=== PATIENT | female | born 1955 | race Caucasian/White ===

== ENCOUNTER 2016-12-06 14:17 | Inpatient (IN) ==
--- NOTE | 2016-12-06 14:46 | Emergency Department Note ---
Disposition Clinical Impression: Delirium due to general medical condition, Altered mental status, Liver failure , Hepatic encephalopathy, Obesity, Thrombocytopenia, Leukopenia, COPD (chronic obstructive pulmonary disease), Diabetes, Malignancy Disposition: Admitted As Inpatient Referrals: NO,PCP [Primary Care Provider] - Forms: ED Satisfaction Letter General Adult HPI - General Chief complaint: ED Altered Mental Status Stated complaint: AMS, COPD Time Seen by Provider: 12/06/16 14:28 Source: family - History of Present Illness HPI Narrative: 61-year-old female with a history of malignancy and chronic oxygen dependency comes to the ED with concerns for altered mental status. The patient's relatives are concerned because the patient has been poorly responsive and getting worse over the last few days. They are concerned about potential hypercarbia. The patient has a known history of liver disease and has had hyperammonemia before. She currently takes lactulose. There is no history of chest pain no shortness of breath of an acute nature, she usually wears 4 L nasal cannula. No cough or coughing up blood. She has chronically swollen lower extremities which are unchanged. There is no history of fall. The patient denies abdominal pain and there is no history of vomiting or diarrhea. No back pain. No rashes or fevers or convulsions. No difficulty moving her arms or legs independently. No new medications reported or noted. Pain Scale: 0 - Related Data Home Medications Medication Instructions Recorded Confirmed Duloxetine HCl [Cymbalta] 60 mg PO QAM 07/08/15 11/27/16 Budesonide/Formoterol 160/4.5 2 puff IH BIDR 07/11/15 11/27/16 [Symbicort 160/4.5] Gabapentin [Neurontin] 300 mg PO HS 07/11/15 11/27/16 Cyanocobalamin (B-12) [Vitamin B12] 1,000 mcg IM QMONTH 03/24/16 11/27/16 Methylphenidate HCl [Concerta] 36 mg PO QAM 03/24/16 11/27/16 Prochlorperazine Maleate 10 mg PO DAILY PRN 03/24/16 11/27/16 [Compazine] Albuterol Sulfate [Proventil Hfa] 2 puff IH Q4H 10/24/16 11/27/16 Duloxetine [Cymbalta] 30 mg PO HS 10/24/16 11/27/16 Ergocalciferol (VITAMIN D2) 50,000 unit PO QWEEK 10/24/16 11/27/16 [Vitamin D2] Ferrous Sulfate [Iron] 325 mg PO TID 10/24/16 11/27/16 Furosemide [Lasix] 20 mg PO DAILY 10/24/16 11/27/16 LORazepam [Ativan] 0.5 mg PO BID 10/24/16 11/27/16 Lactulose [Enulose] 30 ml PO DAILY 10/24/16 11/27/16 Methylphenidate HCl [Concerta] 27 mg PO QPM 10/24/16 11/27/16 Pantoprazole Sodium [Protonix] 40 mg PO BID 10/24/16 11/27/16 Saline Nasal [place] [[place] Nasal 1 spray NS QID 10/24/16 11/27/16 [place]] Spironolactone [Aldactone] 50 mg PO QAM 10/24/16 11/27/16 Tramadol HCl [Ultram] 50 mg PO BID PRN 10/24/16 11/27/16 Propranolol [Inderal] 10 mg PO BID 11/14/16 11/27/16 Rifaximin [Xifaxan] 550 mg PO BID 11/14/16 11/27/16 Zinc Sulfate 220 mg PO BID 11/14/16 11/27/16 Spironolactone [Aldactone] 25 mg PO QPM 11/27/16 11/27/16 Previous Rx's Medication Instructions Recorded Multivit-Min/Iron Fum/Folic AC 1 each PO DAILY #90 tablet 10/31/16 [Clpwy-Ztefqkz-Aumqnhti Tablet] Lidocaine HCl [Lidocaine HCl 5 - 10 ml VG DAILY PRN #240 ml 11/27/16 Viscous] Allergies Allergy/AdvReac Type Severity Reaction Status Date / Time codeine Allergy Mild Hives Verified 12/06/16 14:26 montelukast [From Singulair] Allergy Mild Hives Verified 12/06/16 14:26 adhesive tape Allergy Blister Verified 12/06/16 14:26 Limitations: ROS unobtainable due to patients medical condition Past Medical History - Past Medical History Medical history: Reports: cancer, CHF, diabetes, hypertension, liver disease, other Surgical history: Reports: appendectomy, , cholecystectomy, other Psychiatric history: Reports: anxiety, depression - Social History Smoking Status: Former smoker Smokeless Tobacco Status: No Alcohol use: Reports: none Drug use: Reports: none Physical Exam - General Limitations: altered mental status General appearance: lethargic - Head Head exam: atraumatic, normocephalic, normal inspection - Eye Eye exam: Present: normal appearance, PERRL, EOMI. Absent: scleral icterus, conjunctival injection - ENT ENT exam: normal exam, normal oropharynx, mucous membranes moist - Neck Neck exam: Present: normal inspection, full ROM, trachea midline - Chest Chest inspection: Present: symmetric chest wall rise. Absent: tenderness - Respiratory Respiratory exam: Present: prolonged expiratory phase. Absent: respiratory distress, wheezes - Cardiovascular Cardiovascular exam: Present: regular rate, normal rhythm, normal heart sounds - Abdominal Exam Abdominal exam: Present: soft, Non-Tender. Absent: tenderness, distention, guarding, rebound, rigidity - Extremities Exam Extremities exam: Present: full ROM, normal capillary refill, pedal edema. Absent: tenderness, joint swelling, calf tenderness - Expanded Lower Extremity Exam Hip/Pelvis exam: Present: full ROM, tenderness Upper leg exam: Present: full ROM Knee exam: Present: full ROM Lower leg exam: Present: full ROM. Absent: Homans' sign Neurovascular/Tendon exam: Absent: motor deficit, sensory deficit, tendon deficit - Back Exam Back exam: Present: normal inspection, full ROM. Absent: tenderness, CVA tenderness (R), CVA tenderness (L), vertebral tenderness - Neurological Exam Neurological exam: Present: alert, CN II-XII intact. Absent: motor sensory deficit - Skin Skin exam: Present: warm, dry, intact, normal color. Absent: rash, cyanosis, diaphoresis, erythema, pallor, mottled Course Vital Signs Temperature 97.7 F 12/06/16 14:21 Pulse Rate 75 12/06/16 14:21 Respiratory Rate 17 12/06/16 14:21 Blood Pressure 128/73 12/06/16 14:21 O2 Sat by Pulse Oximetry 98 12/06/16 14:21 Temperature 97.7 F 12/06/16 14:21 Pulse Rate 70 12/06/16 16:50 Respiratory Rate 14 12/06/16 16:50 Blood Pressure 104/51 12/06/16 16:50 O2 Sat by Pulse Oximetry 97 12/06/16 16:50 Oxygen Delivery Oxygen Delivery Room Air Medical Decision Making - MDM Narrative Medical decision making narrative: Patient has a history of malignancy and chronic liver disease, she has been taking lactulose at home however she appears to have failed outpatient therapy and has a significantly elevated ammonia level. She was given lactulose in the emergency department and maintained on oxygen. Based on her multiple comorbidities and overt confusion, I thought it would be appropriate to admit the patient to the hospital. I discussed the case with the hospitalist on-call who has accepted the patient to their care. - Lab Data Lab results reviewed: Yes I reviewed the patient's lab results. Result diagrams: 12/06/16 14:55 12/06/16 14:55 Lab Results 12/06/16 12/06/16 12/06/16 Range/Units 14:55 14:55 14:55 WBC 2.9 L (4.3-11.1) K/mcL RBC 3.72 L (3.82-4.97) M/mcL Hgb 11.5 (11.5-15.4) g/dL Hct 35.8 (35.3-44.9) % MCV 96.2 (83.0-100.0) fL MCH 30.9 (28.0-33.3) pg MCHC 32.1 (31.6-35.5) g/dL RDW 20.3 H (11.5-14.5) % Plt Count 64 L (140-400) K/mcL MPV TNP Immature Gran % 0.4 (0-4) % Seg Neutrophils % 61.0 % Lymphocytes % 24.2 % Monocytes % 10.2 % Eosinophils % 3.5 % Basophils % 0.7 % Neutrophils # 1.8 (1.6-8.9) K/mcL Lymphocytes # 0.7 (0.6-4.6) K/mcL Monocytes # 0.3 (0.0-1.3) K/mcL Eosinophils # 0.1 (0.0-0.6) K/mcL Basophils # 0.0 (0.0-0.2) K/mcL PT 20.6 H (9.4-12.1) Seconds INR 1.9 APTT 39.1 H (26.0-36.0) Seconds ABG pH (7.32-7.45) pH Units ABG pCO2 (35-45) mmHg ABG pO2 (85-104) mmHg ABG HCO3 (21-27) mEQ/L ABG Total CO2 (20-26) mEq/L ABG O2 Saturation (95-98) % ABG Base Excess (-2.0 to 3.0) mEq/L Liter Flow L/MIN Blood Gas Modality Inspired O2 % Sodium 139 (136-145) mEq/L Potassium 3.7 (3.5-4.5) mEq/L Chloride 112 H (98-109) mEq/L Carbon Dioxide 25 (19-29) mEq/L BUN 7 (7-20) mg/dL Creatinine 0.61 (0.57-1.11) mg/dL Est GFR ( Amer) > 60 (> 60) Est GFR (Non-Af Amer) > 60 (> 60) BUN/Creatinine Ratio 11 (6-26) Glucose 146 H (70-99) mg/dL Calculated Osmolality 289 (280-300) Calcium 8.1 L (8.6-10.8) mg/dL Total Bilirubin 2.9 H (0.2-1.2) mg/dL Direct Bilirubin 1.2 H (0.0-0.5) mg/dL Indirect Bilirubin 1.7 H (0.0-1.2) mg/dL AST 49 H (5-34) Units/L ALT 35 (0-55) Units/L Alkaline Phosphatase 168 H (38-126) Units/L Ammonia (18-72) mcmol/L Troponin I (0-0.03) ng/mL B-Natriuretic Peptide (0-100) pg/mL Serum Total Protein 6.1 (6.0-8.3) g/dL Albumin 1.9 L (3.5-5.0) g/dL Globulin 4.2 H (2.4-3.5) g/dL Albumin/Globulin Ratio 0.5 L (1.1-2.2) Lipase 28 (8-78) Units/L TSH 1.589 (0.350-4.840) mcIU/mL Urine Color (Yellow) Urine Clarity (Clear) Urine pH (5.0-8.0) pH Units Ur Specific [place] (1.010-1.025) Urine Protein (Neg-Trace) mg/dL Urine Glucose (UA) (Normal) mg/dL Urine Ketones (Negative) mg/dL Urine Blood (Negative) Urine Nitrite (Negative) Urine Bilirubin (Negative) Urine Urobilinogen (Normal) mg/dL Ur Leukocyte Esterase (Negative) Urine Microscopic RBC (0-3) per hpf Urine Microscopic WBC (0-3) per hpf Ur Squamous Epith Cells (None-Few) per lpf Urine Bacteria (None-Few) per hpf Hyaline Casts (None-Few) per lpf Ur Culture Indicated? (NO) Salicylates (15-30) mg/dL Urine Opiates Screen (Npxwvd=835) ng/mL Acetaminophen (10-30) mcg/mL Ur Barbiturates Screen (Qmmefg=033) ng/mL Ur Phencyclidine Scrn (Cutoff=25) ng/mL Ur Amphetamines Screen (Xiahin=8378) ng/mL U Benzodiazepines Scrn (Gonfbm=296) ng/mL Urine Cocaine Screen (Cutoff= 300) ng/mL U Marijuana (THC) Screen (Cutoff = 50) ng/mL Ethyl Alcohol < 10 (0-10) mg/dL 12/06/16 12/06/16 12/06/16 Range/Units 14:55 14:55 14:55 WBC (4.3-11.1) K/mcL RBC (3.82-4.97) M/mcL Hgb (11.5-15.4) g/dL Hct (35.3-44.9) % MCV (83.0-100.0) fL MCH (28.0-33.3) pg MCHC (31.6-35.5) g/dL RDW (11.5-14.5) % Plt Count (140-400) K/mcL MPV Immature Gran % (0-4) % Seg Neutrophils % % Lymphocytes % % Monocytes % % Eosinophils % % Basophils % % Neutrophils # (1.6-8.9) K/mcL Lymphocytes # (0.6-4.6) K/mcL Monocytes # (0.0-1.3) K/mcL Eosinophils # (0.0-0.6) K/mcL Basophils # (0.0-0.2) K/mcL PT (9.4-12.1) Seconds INR APTT (26.0-36.0) Seconds ABG pH (7.32-7.45) pH Units ABG pCO2 (35-45) mmHg ABG pO2 (85-104) mmHg ABG HCO3 (21-27) mEQ/L ABG Total CO2 (20-26) mEq/L ABG O2 Saturation (95-98) % ABG Base Excess (-2.0 to 3.0) mEq/L Liter Flow L/MIN Blood Gas Modality Inspired O2 % Sodium (136-145) mEq/L Potassium (3.5-4.5) mEq/L Chloride (98-109) mEq/L Carbon Dioxide (19-29) mEq/L BUN (7-20) mg/dL Creatinine (0.57-1.11) mg/dL Est GFR ( Amer) (> 60) Est GFR (Non-Af Amer) (> 60) BUN/Creatinine Ratio (6-26) Glucose (70-99) mg/dL Calculated Osmolality (280-300) Calcium (8.6-10.8) mg/dL Total Bilirubin (0.2-1.2) mg/dL Direct Bilirubin (0.0-0.5) mg/dL Indirect Bilirubin (0.0-1.2) mg/dL AST (5-34) Units/L ALT (0-55) Units/L Alkaline Phosphatase (38-126) Units/L Ammonia 91 H (18-72) mcmol/L Troponin I 0.00 (0-0.03) ng/mL B-Natriuretic Peptide (0-100) pg/mL Serum Total Protein (6.0-8.3) g/dL Albumin (3.5-5.0) g/dL Globulin (2.4-3.5) g/dL Albumin/Globulin Ratio (1.1-2.2) Lipase (8-78) Units/L TSH (0.350-4.840) mcIU/mL Urine Color (Yellow) Urine Clarity (Clear) Urine pH (5.0-8.0) pH Units Ur Specific [place] (1.010-1.025) Urine Protein (Neg-Trace) mg/dL Urine Glucose (UA) (Normal) mg/dL Urine Ketones (Negative) mg/dL Urine Blood (Negative) Urine Nitrite (Negative) Urine Bilirubin (Negative) Urine Urobilinogen (Normal) mg/dL Ur Leukocyte Esterase (Negative) Urine Microscopic RBC (0-3) per hpf Urine Microscopic WBC (0-3) per hpf Ur Squamous Epith Cells (None-Few) per lpf Urine Bacteria (None-Few) per hpf Hyaline Casts (None-Few) per lpf Ur Culture Indicated? (NO) Salicylates < 5.0 L (15-30) mg/dL Urine Opiates Screen (Mcqfoh=341) ng/mL Acetaminophen < 1.0 L (10-30) mcg/mL Ur Barbiturates Screen (Afnufy=744) ng/mL Ur Phencyclidine Scrn (Cutoff=25) ng/mL Ur Amphetamines Screen (Dbiore=9810) ng/mL U Benzodiazepines Scrn (Rcfxrl=819) ng/mL Urine Cocaine Screen (Cutoff= 300) ng/mL U Marijuana (THC) Screen (Cutoff = 50) ng/mL Ethyl Alcohol (0-10) mg/dL 12/06/16 12/06/16 12/06/16 Range/Units 14:55 15:08 16:17 WBC (4.3-11.1) K/mcL RBC (3.82-4.97) M/mcL Hgb (11.5-15.4) g/dL Hct (35.3-44.9) % MCV (83.0-100.0) fL MCH (28.0-33.3) pg MCHC (31.6-35.5) g/dL RDW (11.5-14.5) % Plt Count (140-400) K/mcL MPV Immature Gran % (0-4) % Seg Neutrophils % % Lymphocytes % % Monocytes % % Eosinophils % % Basophils % % Neutrophils # (1.6-8.9) K/mcL Lymphocytes # (0.6-4.6) K/mcL Monocytes # (0.0-1.3) K/mcL Eosinophils # (0.0-0.6) K/mcL Basophils # (0.0-0.2) K/mcL PT (9.4-12.1) Seconds INR APTT (26.0-36.0) Seconds ABG pH 7.45 (7.32-7.45) pH Units ABG pCO2 35 (35-45) mmHg ABG pO2 81 L (85-104) mmHg ABG HCO3 24.3 (21-27) mEQ/L ABG Total CO2 25.4 (20-26) mEq/L ABG O2 Saturation 96 (95-98) % ABG Base Excess 0.6 (-2.0 to 3.0) mEq/L Liter Flow 3 L/MIN Blood Gas Modality [place] Inspired O2 32 % Sodium (136-145) mEq/L Potassium (3.5-4.5) mEq/L Chloride (98-109) mEq/L Carbon Dioxide (19-29) mEq/L BUN (7-20) mg/dL Creatinine (0.57-1.11) mg/dL Est GFR ( Amer) (> 60) Est GFR (Non-Af Amer) (> 60) BUN/Creatinine Ratio (6-26) Glucose (70-99) mg/dL Calculated Osmolality (280-300) Calcium (8.6-10.8) mg/dL Total Bilirubin (0.2-1.2) mg/dL Direct Bilirubin (0.0-0.5) mg/dL Indirect Bilirubin (0.0-1.2) mg/dL AST (5-34) Units/L ALT (0-55) Units/L Alkaline Phosphatase (38-126) Units/L Ammonia (18-72) mcmol/L Troponin I (0-0.03) ng/mL B-Natriuretic Peptide 271 H (0-100) pg/mL Serum Total Protein (6.0-8.3) g/dL Albumin (3.5-5.0) g/dL Globulin (2.4-3.5) g/dL Albumin/Globulin Ratio (1.1-2.2) Lipase (8-78) Units/L TSH (0.350-4.840) mcIU/mL Urine Color (Yellow) Urine Clarity (Clear) Urine pH (5.0-8.0) pH Units Ur Specific [place] (1.010-1.025) Urine Protein (Neg-Trace) mg/dL Urine Glucose (UA) (Normal) mg/dL Urine Ketones (Negative) mg/dL Urine Blood (Negative) Urine Nitrite (Negative) Urine Bilirubin (Negative) Urine Urobilinogen (Normal) mg/dL Ur Leukocyte Esterase (Negative) Urine Microscopic RBC (0-3) per hpf Urine Microscopic WBC (0-3) per hpf Ur Squamous Epith Cells (None-Few) per lpf Urine Bacteria (None-Few) per hpf Hyaline Casts (None-Few) per lpf Ur Culture Indicated? (NO) Salicylates (15-30) mg/dL Urine Opiates Screen Negative (Qveshy=798) ng/mL Acetaminophen (10-30) mcg/mL Ur Barbiturates Screen Negative (Xsvsdz=560) ng/mL Ur Phencyclidine Scrn Negative (Cutoff=25) ng/mL Ur Amphetamines Screen Positive H (Gowvsf=6701) ng/mL U Benzodiazepines Scrn Negative (Brsofn=538) ng/mL Urine Cocaine Screen Negative (Cutoff= 300) ng/mL U Marijuana (THC) Screen Negative (Cutoff = 50) ng/mL Ethyl Alcohol (0-10) mg/dL 12/06/16 Range/Units 16:20 WBC (4.3-11.1) K/mcL RBC (3.82-4.97) M/mcL Hgb (11.5-15.4) g/dL Hct (35.3-44.9) % MCV (83.0-100.0) fL MCH (28.0-33.3) pg MCHC (31.6-35.5) g/dL RDW (11.5-14.5) % Plt Count (140-400) K/mcL MPV Immature Gran % (0-4) % Seg Neutrophils % % Lymphocytes % % Monocytes % % Eosinophils % % Basophils % % Neutrophils # (1.6-8.9) K/mcL Lymphocytes # (0.6-4.6) K/mcL Monocytes # (0.0-1.3) K/mcL Eosinophils # (0.0-0.6) K/mcL Basophils # (0.0-0.2) K/mcL PT (9.4-12.1) Seconds INR APTT (26.0-36.0) Seconds ABG pH (7.32-7.45) pH Units ABG pCO2 (35-45) mmHg ABG pO2 (85-104) mmHg ABG HCO3 (21-27) mEQ/L ABG Total CO2 (20-26) mEq/L ABG O2 Saturation (95-98) % ABG Base Excess (-2.0 to 3.0) mEq/L Liter Flow L/MIN Blood Gas Modality [place]ired O2 % Sodium (136-145) mEq/L Potassium (3.5-4.5) mEq/L Chloride (98-109) mEq/L Carbon Dioxide (19-29) mEq/L BUN (7-20) mg/dL Creatinine (0.57-1.11) mg/dL Est GFR ( Amer) (> 60) Est GFR (Non-Af Amer) (> 60) BUN/Creatinine Ratio (6-26) Glucose (70-99) mg/dL Calculated Osmolality (280-300) Calcium (8.6-10.8) mg/dL Total Bilirubin (0.2-1.2) mg/dL Direct Bilirubin (0.0-0.5) mg/dL Indirect Bilirubin (0.0-1.2) mg/dL AST (5-34) Units/L ALT (0-55) Units/L Alkaline Phosphatase (38-126) Units/L Ammonia (18-72) mcmol/L Troponin I (0-0.03) ng/mL B-Natriuretic Peptide (0-100) pg/mL Serum Total Protein (6.0-8.3) g/dL Albumin (3.5-5.0) g/dL Globulin (2.4-3.5) g/dL Albumin/Globulin Ratio (1.1-2.2) Lipase (8-78) Units/L TSH (0.350-4.840) mcIU/mL Urine Color Yellow (Yellow) Urine Clarity Clear (Clear) Urine pH 7.0 (5.0-8.0) pH Units Ur Specific [place] 1.012 (1.010-1.025) Urine Protein Negative (Neg-Trace) mg/dL Urine Glucose (UA) Normal (Normal) mg/dL Urine Ketones Negative (Negative) mg/dL Urine Blood Small H (Negative) Urine Nitrite Negative (Negative) Urine Bilirubin Negative (Negative) Urine Urobilinogen Normal (Normal) mg/dL Ur Leukocyte Esterase Negative (Negative) Urine Microscopic RBC 0-3 (0-3) per hpf Urine Microscopic WBC 0-3 (0-3) per hpf Ur Squamous Epith Cells Many H (None-Few) per lpf Urine Bacteria None Seen (None-Few) per hpf Hyaline Casts None Seen (None-Few) per lpf Ur Culture Indicated? NO (NO) Salicylates (15-30) mg/dL Urine Opiates Screen (Ggzyvb=161) ng/mL Acetaminophen (10-30) mcg/mL Ur Barbiturates Screen (Idsdpd=891) ng/mL Ur Phencyclidine Scrn (Cutoff=25) ng/mL Ur Amphetamines Screen (Dlqnnl=0655) ng/mL U Benzodiazepines Scrn (Qavzrq=189) ng/mL Urine Cocaine Screen (Cutoff= 300) ng/mL U Marijuana (THC) Screen (Cutoff = 50) ng/mL Ethyl Alcohol (0-10) mg/dL - Radiology Data Radiology results reviewed: Yes I reviewed the patient's radiology results.
[2016-12-06 15:08] LABS: Basophils % 0.7 %; Eosinophils # 0.1 K/mcL (0.0-0.6); Eosinophils % 3.5 %; Hematocrit 35.8 % (35.3-44.9); Hemoglobin 11.5 g/dL (11.5-15.4); Immature Granulocytes % 0.4 % (0-4); Lymphocytes # 0.7 K/mcL (0.6-4.6); Lymphocytes % 24.2 %; Mean Corpuscular HGB Conc 32.1 g/dL (31.6-35.5); Mean Corpuscular Hemoglobin 30.9 pg (28.0-33.3); Mean Corpuscular Volume 96.2 fL (83.0-100.0); Monocytes # 0.3 K/mcL (0.0-1.3); Monocytes % 10.2 %; Red Blood Count 3.72 M/mcL (3.82-4.97); Red Cell Distribution Width 20.3 % (11.5-14.5)
[2016-12-06 15:10] LABS: Neutrophils # 1.8 K/mcL (1.6-8.9); Platelet Count 64 K/mcL (140-400)
[2016-12-06 15:17] LABS: ABG Base Excess 0.6 mEq/L (-2.0 to 3.0); ABG HCO3 24.3 mEQ/L (21-27); ABG Oxygen Saturation 96 % (95-98); ABG PCO2 35 mmHg (35-45); ABG PH 7.45 pH Units (7.32-7.45); ABG PO2 81 mmHg (85-104); ABG TCO2 25.4 mEq/L (20-26); Blood Gas FiO2 32 %; Blood Gas Liter Flow 3 L/MIN
[2016-12-06 15:17] LABS: INR 1.9; Prothrombin Time 20.6 Seconds (9.4-12.1)
[2016-12-06 15:19] LABS: Activated Partial Thrombo Time 39.1 Seconds (26.0-36.0)
[2016-12-06 15:25] LABS: Acetaminophen < 1.0 mcg/mL (10-30); Alanine Aminotransferase 35 Units/L (0-55); Albumin 1.9 g/dL (3.5-5.0); Albumin/Globulin Ratio 0.5 (1.1-2.2); Alkaline Phosphatase 168 Units/L (38-126); Aspartate Amino Transferase 49 Units/L (5-34); BUN/Creatinine Ratio 11 (6-26); Bilirubin,Direct 1.2 mg/dL (0.0-0.5); Bilirubin,Indirect 1.7 mg/dL (0.0-1.2); Bilirubin,Total 2.9 mg/dL (0.2-1.2); Blood Urea Nitrogen 7 mg/dL (7-20); Calcium 8.1 mg/dL (8.6-10.8); Carbon Dioxide 25 mEq/L (19-29); Chloride 112 mEq/L (98-109); Ethanol < 10 mg/dL (0-10); Globulin 4.2 g/dL (2.4-3.5); Glucose 146 mg/dL (70-99); Osmolality,Calculated 289 (280-300); Potassium 3.7 mEq/L (3.5-4.5); Salicylate < 5.0 mg/dL (15-30); Sodium 139 mEq/L (136-145); Total Protein 6.1 g/dL (6.0-8.3); eGFR For African Americans > 60 (> 60); eGFR For Non-African Americans > 60 (> 60)
[2016-12-06 15:47] LABS: Thyroid Stimulating Hormone 1.589 mcIU/mL (0.350-4.840)
[2016-12-06 16:03] LABS: Lipase 28 Units/L (8-78)
[2016-12-06] MEDS ORDERED: Lactulose Oral Soln 20 GM/30 ML UDC PO ONE (16:03)
[2016-12-06 16:24] LABS: Bilirubin,Urine Negative (Negative); Blood,Urine Small (Negative); Clarity,Urine Clear (Clear); Color,Urine Yellow (Yellow); Glucose,Urine (UA) Normal (Normal); Ketones,Urine Negative (Negative); Leukocyte Esterase,Urine Negative (Negative); Nitrite,Urine Negative (Negative); Protein,Urine Negative (Neg-Trace); Specific Gravity,Urine 1.012 (1.010-1.025); Urobilinogen,Urine Normal (Normal)
[2016-12-06 16:26] LABS: Bacteria,Urine None Seen per hpf (None-Few); Hyaline Casts,Urine None Seen per lpf (None-Few); RBC,Urine 0-3 per hpf (0-3); Squamous Epithelial Cell,Urine Many per lpf (None-Few); WBC,Urine 0-3 per hpf (0-3)
[2016-12-06 16:33] LABS: Amphetamine Screen,Urine Positive ng/mL (Cutoff=1000); Barbiturate Screen,Urine Negative ng/mL (Cutoff=200); Benzodiazepines Screen,Urine Negative ng/mL (Cutoff=200); Cannabinoid Screen,Urine Negative ng/mL (Cutoff = 50); Cocaine Screen,Urine Negative ng/mL (Cutoff= 300); Opiate Screen,Urine Negative ng/mL (Cutoff=300); Phencyclidine Screen,Urine Negative ng/mL (Cutoff=25)
[2016-12-06] MEDS ORDERED: Ondansetron 4 MG/2 ML VIAL IVP PRN (17:51)
[2016-12-06] MEDS ORDERED: Naloxone 0.4 MG/ML INJ IVP PRN (17:51)
[2016-12-06] MEDS ORDERED: Spironolactone 25 MG TABLET PO SCH (18:00)
[2016-12-06] MEDS ORDERED: NON-FORMULARY MEDICATION 1 EACH EACH (Cyanocobalamin (B-12) 1,000 MCG) IM SCH (18:00)
--- NOTE | 2016-12-06 18:19 | Internal Med History&Physical ---
Date of Encounter: 12/06/16 Time of Encounter: 17:40 Assessment and Plan (1) Hepatic encephalopathy Current visit: Yes Status: Acute Grade 3 hepatic encephalopathy likely secondary to reported lower GI bleed No GI bleed noted in the ER Increase lactulose to 30 g by mouth 4 times a day, patient able to tolerate by mouth intake at this time. Titrate to 3-4 soft bowel movements daily continue home dose Rifaximin closely monitor mental status, if worsens, will need to consider intubation for airway protection. Will hold all sedative medications from her home medication list at this time Had a detailed discussion with the family in regards to patient's advanced directives, at this time patient wishes to remain full code. (2) Lower GI bleed Current visit: Yes Status: Acute -H&H low but acceptable -No acute bleeding noted at this time -We will closely monitor -Follow up GI consult with Dr. Kwok (3) CHF (congestive heart failure) Current visit: Yes Status: Acute Not in acute exacerbation however x-ray findings consistent with pulmonary edema We will give Lasix 20 mg IV first dose now Continue diuretic therapy, increased dosing as tolerated by blood pressure Continue to monitor daily weights Monitor daily Is/Os Qualifiers: Congestive heart failure type: unspecified congestive heart failure type Congestive heart failure chronicity: unspecified congestive heart failure chronicity Qualified Code(s): I50.9 - Heart failure, unspecified (4) Morbid obesity Current visit: Yes Status: Chronic Qualifiers: Obesity type: unspecified obesity type Qualified Code(s): E66.01 - Morbid ( severe) obesity due to excess calories (5) COPD (chronic obstructive pulmonary disease) Current visit: Yes Status: Acute Not in acute exacerbation Continue bronchodilator support Continue O2 supplementation as needed Qualifiers: COPD type: unspecified COPD Qualified Code(s): J44.9 - Chronic obstructive pulmonary disease, unspecified (6) DVT prophylaxis Current visit: Yes Status: Acute epcd (7) Leukopenia Current visit: Yes Status: Chronic No signs of infection noted at this time Closely monitor Qualifiers: Neutropenia type: unspecified Qualified Code(s): D70.9 - Neutropenia, unspecified (8) Thrombocytopenia Current visit: Yes Status: Chronic Chronic secondary to liver cirrhosis Continue to closely monitor No Active bleeding noted at this time Internal Medicine - H&P: HPI Chief complaint: change in mental status Admitted From: Home Plans for Post Hospital Care: Home History of present illness: Ms. Horner is a 61 year old female with past medical history of CHF, hypertension , liver cirrhosis secondary to ARTEAGA, COPD on home oxygen, chronic pancytopenia, and valvular cancer in remission was brought to the emergency room by daughter for evaluation of change in mental status. Upon my examination the patient appears somnolent, but arousable. She is unable to stay alert long enough to answer any of my questions, however there is family including daughter who is her primary filtration supervisor available at bedside to provide her medical history. As per daughter, the patient started appearing more confused and somnolent starting yesterday afternoon. She states for the last few days she has noticed some bright red blood mixed with her stools. She also reports of noticing dark bowel movements, however patient is also taking iron supplementation. As per daughter, patient is compliant with all of her medications, and is currently undergoing aggressive liver treatment with her physician in [place]. She states the patient is having 2-3 bowel movements daily, and is compliant with her lactulose, but she noticed this change in mental status starting yesterday. Patient was recently admitted 3 weeks back for treatment of UTI and cellulitis. Family denies any history of fever, cough, however reports that the patient recently underwent a procedure for her liver in the last couple of weeks. Social Hx: former smoker, quit 16years ago Past Med Surg Social Fam HX - Past Medical History Medical history: cancer, CHF, diabetes, hypertension, liver disease, other Psychiatric history: anxiety, depression - Past Surgical History Surgical History: appendectomy, , cholecystectomy, other - Social History Smoking Status: Former smoker Smokeless Tobacco Status: No Alcohol use: none Drug use: none Internal Medicine - H&P: Meds Duloxetine HCl [Cymbalta] 60 mg PO QAM 07/08/15 [History] Budesonide/Formoterol 160/4.5 [Symbicort 160/4.5] 2 puff IH BID 07/11/15 [ History] Gabapentin [Neurontin] 300 mg PO HS 07/11/15 [History] Cyanocobalamin (B-12) [Vitamin B12] 1,000 mcg IM QMONTH 03/24/16 [History] Methylphenidate HCl [Concerta] 36 mg PO QAM 03/24/16 [History] Prochlorperazine Maleate [Compazine] 10 mg PO DAILY PRN 03/24/16 [History] Albuterol Sulfate [Proventil Hfa] 2 puff IH Q4H 10/24/16 [History] Duloxetine [Cymbalta] 30 mg PO HS 10/24/16 [History] Ergocalciferol (VITAMIN D2) [Vitamin D2] 50,000 unit PO TH 10/24/16 [History] Ferrous Sulfate [Iron] 325 mg PO QAM 10/24/16 [History] Furosemide [Lasix] 20 mg PO DAILY 10/24/16 [History] LORazepam [Ativan] 0.5 mg PO BID 10/24/16 [History] Lactulose [Enulose] 30 ml PO DAILY 10/24/16 [History] Methylphenidate HCl [Concerta] 27 mg PO QPM 10/24/16 [History] Pantoprazole Sodium [Protonix] 40 mg PO BID 10/24/16 [History] Saline Nasal [place] [[place] Nasal Bliss] 1 spray NS QID 10/24/16 [History] Spironolactone [Aldactone] 50 mg PO QAM 10/24/16 [History] Tramadol HCl [Ultram] 50 mg PO BID PRN 10/24/16 [History] Propranolol [Inderal] 10 mg PO BID 11/14/16 [History] Rifaximin [Xifaxan] 550 mg PO BID 11/14/16 [History] Zinc Sulfate 220 mg PO BID 11/14/16 [History] Spironolactone [Aldactone] 25 mg PO QPM 11/27/16 [History] Multivit-Min/Iron Fum/Folic AC [Yvhnb-Lvtcoyk-Kqtwfdbe Tablet] 1 tab PO DAILY [History] Allergies codeine Allergy (Mild, Verified 12/06/16 14:26) Hives montelukast [From Singulair] Allergy (Mild, Verified 12/06/16 14:26) Hives adhesive tape Allergy (Verified 12/06/16 14:26) Blister ROS unobtainable: due to mental status All Systems PM: A 10-system review of systems was performed and is negative for pertinent findings except as documented above in the HPI. - Constitutional Vitals: Temp Pulse Resp BP Pulse Ox 97.7 F 70 16 98/55 97 12/06/16 14:21 12/06/16 16:50 12/06/16 17:19 12/06/16 17:19 12/06/16 16:50 General appearance: Present: A&O X 2 (to self and daughter), morbidly obese, no acute distress (somnolent) - Head Head exam: Present: atraumatic, normocephalic - Eye Eye exam: Present: PERRL, scleral icterus - Respiratory Respiratory exam: Present: decreased breath sounds. Absent: respiratory distress, rhonchi, wheezes - Cardiovascular Cardiovascular exam: Present: RRR, +S1, +S2 - GI/Abdominal GI/Abdominal exam: Present: distended (obese), normal bowel sounds, soft, no peritoneal signs. Absent: rebound, tenderness - Extremities Exam Extremities exam: Present: pedal edema (bilateral 2+ pedal edema (chronic as per daughter)), warm, radial pulses palpable and symetrical - Neurological Exam Neurological exam: Present: alert (somnolent but arousable) Internal Med - H&P Results - Labs CBC & Chem 7: 12/06/16 14:55 12/06/16 14:55
[2016-12-06] MEDS ORDERED: Ipratropium/Albuterol Neb 3 ML IH PRN (18:37)
[2016-12-06] MEDS ORDERED: NON-FORMULARY MEDICATION 1 EACH EACH (Pantoprazole Sodium [Protonix] 40 MG) PO SCH (21:00)
[2016-12-06] MEDS: Budesonide/Formoterol 160/4.5 MDI IH SCH (21:26)
[2016-12-06] MEDS: Zinc Sulfate 220 MG CAPSULE PO SCH (21:32)
[2016-12-06] MEDS: Lactulose Oral Soln 20 GM/30 ML UDC PO SCH (21:32)
[2016-12-06] MEDS: Furosemide 20 MG/2 ML VIAL IVP SCH (21:32)
[2016-12-06] MEDS: Saline Nasal Spray 44 ML BOTTLE NS SCH (21:32)
[2016-12-07 04:35] LABS: Basophils % 0.7 %; Eosinophils % 2.9 %; Hemoglobin 11.4 g/dL (11.5-15.4); Immature Granulocytes % 0.4 % (0-4); Mean Corpuscular Hemoglobin 31.1 pg (28.0-33.3); Mean Corpuscular Volume 95.9 fL (83.0-100.0)
[2016-12-07 04:37] LABS: Eosinophils # 0.1 K/mcL (0.0-0.6); Hematocrit 35.2 % (35.3-44.9); Immature Platelets 3.4 % (1.1-6.1); Lymphocytes # 0.7 K/mcL (0.6-4.6); Lymphocytes % 23.6 %; Mean Corpuscular HGB Conc 32.4 g/dL (31.6-35.5); Monocytes # 0.3 K/mcL (0.0-1.3); Monocytes % 9.3 %; Neutrophils # 1.8 K/mcL (1.6-8.9); Red Blood Count 3.67 M/mcL (3.82-4.97); Red Cell Distribution Width 20.1 % (11.5-14.5); Segmented Neutrophils % 63.1 %
[2016-12-07 04:46] LABS: Platelet Count 52 K/mcL (140-400)
[2016-12-07 04:50] LABS: Alanine Aminotransferase 36 Units/L (0-55); Albumin/Globulin Ratio 0.5 (1.1-2.2); Alkaline Phosphatase 141 Units/L (38-126); Aspartate Amino Transferase 49 Units/L (5-34); BUN/Creatinine Ratio 10 (6-26); Bilirubin,Total 3.6 mg/dL (0.2-1.2); Blood Urea Nitrogen 6 mg/dL (7-20); Calcium 8.3 mg/dL (8.6-10.8); Carbon Dioxide 23 mEq/L (19-29); Chloride 113 mEq/L (98-109); Globulin 3.9 g/dL (2.4-3.5); Glucose 126 mg/dL (70-99); Magnesium 1.1 mg/dL (1.6-2.6); Osmolality,Calculated 291 (280-300); Phosphorous 2.9 mg/dL (2.3-4.7); Potassium 3.5 mEq/L (3.5-4.5); Sodium 141 mEq/L (136-145); Total Protein 5.9 g/dL (6.0-8.3); eGFR For African Americans > 60 (> 60); eGFR For Non-African Americans > 60 (> 60)
[2016-12-07 05:20] LABS: Anisocytosis 1+ (Not Present); Hypochromasia Present (Not Present); Ovalocytes 1+ (Not Present); Tear Drop Cells 1+ (Not Present)
[2016-12-07 05:21] LABS: Platelet Estimate Decreased (Normal); Poikilocytosis 1+ (Not Present); Polychromasia 1+ (Not Present)
[2016-12-07] MEDS: Budesonide/Formoterol 160/4.5 MDI IH SCH (08:24)
[2016-12-07] MEDS ORDERED: *HR* Phytonadione 5 MG TABLET PO SCH (09:00)
[2016-12-07] MEDS ORDERED: Spironolactone 25 MG TABLET PO SCH (09:00)
[2016-12-07] MEDS ORDERED: Multivit/Ca/Min/Fe/FA 1 TAB TABLET PO SCH (09:00)
--- NOTE | 2016-12-07 09:09 | Internal Med Progress Note ---
Date of Encounter: 12/07/16 Time of Encounter: 06:00 - Assessment and plan (1) Hepatic encephalopathy Current Visit: Yes Status: Acute Assessment and plan: miniize narcotics sedatives, check ammonia level continue rifaximin and lactulose (2) CHF (congestive heart failure) Current Visit: Yes Status: Acute Assessment and plan: Unknown EF check echo gentle diuresis , monitor lytesto prevent hepato renal syndrome Qualifiers: Congestive heart failure type: unspecified congestive heart failure type Congestive heart failure chronicity: unspecified congestive heart failure chronicity Qualified Code(s): I50.9 - Heart failure, unspecified (3) Cirrhosis Current Visit: No Status: Chronic Assessment and plan: due to ARTEAGA/ check hepatitis panel supportive care Qualifiers: Hepatic cirrhosis type: unspecified hepatic cirrhosis Ascites presence: without ascites Qualified Code(s): K74.60 - Unspecified cirrhosis of liver (4) Malignancy Current Visit: Yes Status: Chronic Assessment and plan: vulvar cancer s/o radiation apparently not a resectable tumor (5) Vulva cancer Current Visit: No Status: Chronic - Subjective Interval history: Pt states that feels better, but upon questioning she is oriented to person and place only not in time - Constitutional Vitals: Temp Pulse Resp BP Pulse Ox 98.2 F 76 16 106/64 88 L 12/07/16 06:25 12/07/16 06:25 12/07/16 08:24 12/07/16 06:25 12/07/16 08:24 General appearance: Present: A&O X 2 (to self and daughter), morbidly obese, no acute distress (somnolent) - Respiratory Respiratory exam: Present: decreased breath sounds Additional comments: scattered rales - Cardiovascular Cardiovascular exam: Present: RRR, +S1, +S2 - GI/Abdominal GI/Abdominal exam: Present: soft Additional comments: + splenomegaly - Extremities Exam Additional comments: Trace pedal edema - Neurological Exam Neurological exam: Present: alert Additional comments: ut oriented to person and place not in time Internal Medicine: Result - Labs CBC & Chem 7: 12/07/16 04:16 12/07/16 04:16 Labs: Short CBC 12/07/16 Range/Units 04:16 WBC 2.8 L (4.3-11.1) K/mcL Hgb 11.4 L (11.5-15.4) g/dL Hct 35.2 L (35.3-44.9) % Plt Count 52 L (140-400) K/mcL Neutrophils # 1.8 (1.6-8.9) K/mcL BMP 12/07/16 04:16 Sodium 141 Potassium 3.5 Chloride 113 H Carbon Dioxide 23 BUN 6 L Creatinine 0.62 Glucose 126 H Calcium 8.3 L Liver Function 12/07/16 Range/Units 04:16 Total Bilirubin 3.6 H (0.2-1.2) mg/dL AST 49 H (5-34) Units/L ALT 36 (0-55) Units/L Alkaline Phosphatase 141 H (38-126) Units/L Albumin 2.0 L (3.5-5.0) g/dL - ABG Interpretation ABG results: ABG ABG pH 7.45 pH Units (7.32-7.45) 12/06/16 15:08 ABG pCO2 35 mmHg (35-45) 12/06/16 15:08 ABG pO2 81 mmHg (85-104) L 12/06/16 15:08 ABG O2 Saturation 96 % (95-98) 12/06/16 15:08 PT/INR, D-dimer PT 20.6 Seconds (9.4-12.1) H 12/06/16 14:55 - Impressions Impressions Abdomen Ultrasound 12/06/16 18:18 IMPRESSION: Unremarkable right upper quadrant ultrasound. No evidence of ascites. Splenomegaly. D/ / Omaira Atkinson MD / Omaira Atkinson MD Interpreting Provider: Omaira Atkinson MD Consult Discharge Plan - Plan Referrals: Bianka Cassidy MD [Primary Care Provider] - (Needs appointment made)
[2016-12-07 09:23] LABS: INR 2.1; Prothrombin Time 23.1 Seconds (9.4-12.1)
[2016-12-07] MEDS: Zinc Sulfate 220 MG CAPSULE PO SCH (09:46)
[2016-12-07] MEDS: Furosemide 20 MG/2 ML VIAL IVP SCH (09:47)
[2016-12-07] MEDS: Lactulose Oral Soln 20 GM/30 ML UDC PO SCH ×3 (09:47→18:42)
[2016-12-07] MEDS: Saline Nasal Spray 44 ML BOTTLE NS SCH ×3 (09:47→15:49)
--- NOTE | 2016-12-07 11:14 | Gastroenterology Consult Note ---
<Hemanth Alarcon - Last Filed: 12/07/16 11:11> Date of Encounter: 12/07/16 Time of Encounter: 09:50 - Assessment and plan (1) Cirrhosis Current Visit: No Status: Chronic Assessment and plan: Pt is following with Wind Commissioning Technician in [place]. Rifaximin to 400 mg TID while inpatient, and 550 mg BID while outpatient. Titrate lactulose to 2-4 BM daily. Last EGD 11/21/2016 in [place]. MELD 18, Yolis-vega Class C, DF 46.7. F/u with plant health manager within 2 weeks of discharge. Qualifiers: Hepatic cirrhosis type: unspecified hepatic cirrhosis Ascites presence: without ascites Qualified Code(s): K74.60 - Unspecified cirrhosis of liver (2) Hepatic encephalopathy Current Visit: Yes Status: Acute Assessment and plan: Secondary to cirrhosis. Plan as above. (3) Liver failure Current Visit: Yes Status: Acute Qualifiers: Liver failure chronicity: chronic Hepatic coma status: without hepatic coma Qualified Code(s): K72.10 - Chronic hepatic failure without coma (4) Lower GI bleed Current Visit: Yes Status: Acute Assessment and plan: hgb 11/5 on admission and this AM 11.4. Rectal exam negative for blood per Dr. Kwok. Will hold on colonoscopy at this time. F/u with plant health manager within 2 weeks after discharge. - Time Spent With Patient Total time spent is greater than 50% in coordination of care (as documented) at patient's floor/unit and/or counseling patient: GI History of Present Illness - Data of Consult Patient: new to practice Consult date: 12/07/16 Requesting Physician: Hortensia Kennedy - Consult Narrative Reason for consult: Lower GI bleed History of present illness: Ms. Horner is a 61 year old female with PMHx of CHF, HTN, DM, cirrhosis secondary to ARTEAGA, COPD who presented to the ED with altered mental status. The patient started appearing more confused and somnolent starting the day prior to admission. She states for the last few days she has noticed some bright red blood mixed with her stools. She also reports of noticing dark bowel movements, however patient is also taking iron supplementation. Hgb 11.5 on admission and 11.4 this AM. Patient is compliant with all of her medications, and is currently undergoing aggressive liver treatment with her physician in [place]. She states the patient is having 2-3 bowel movements daily, and is compliant with her lactulose. Procedures: Colonoscopy 12/22/2012 Dr. Cooney, diverticulosis, tubular adenoma, hyperplastic polyp. NSAIDs: None Anticoagulation: None Past Med Surg Social Fam HX - Past Medical History Medical history: cancer, CHF, diabetes, hypertension, liver disease, other Psychiatric history: anxiety, depression - Past Surgical History Surgical History: appendectomy, , cholecystectomy, other - Social History Smoking Status: Former smoker Smokeless Tobacco Status: No Alcohol use: none Drug use: none - Gastrointestinal Gastrointestinal: Present: as per HPI - Constitutional Constitutional: as per HPI - EENT Eyes: as per HPI Ears: Present: as per HPI Nose, mouth and throat: Present: as per HPI - Cardiovascular Cardiovascular ROS: Present: as per HPI - Respiratory Respiratory IM: Present: as per HPI - Genitourinary Genitourinary: Absent: change in color, Urinary frequency - Neurological ROS Neurological GI: Present: as per HPI - Hematologic/Lymphatic Hematologic/Lymphatic pediatric: Present: as per HPI - Musculoskeletal Musculoskeletal ROS GI: Present: as per HPI - Integumentary Integumentary GI: Present: as per HPI - Psychiatric ROS Psychiatric GI: Present: as per HPI - Endocrine Endocrine IM: Present: as per HPI - Constitutional Vitals: Temp Pulse Resp BP Pulse Ox 98.2 F 76 16 106/64 88 L 12/07/16 06:25 12/07/16 06:25 12/07/16 08:24 12/07/16 06:25 12/07/16 08:24 General appearance: Present: cooperative, A&O X 3, no acute distress, answers questions appropriately - Head Head exam: Present: atraumatic, normocephalic - Eye Eye exam: Present: normal appearance, sclera anicteric - ENT ENT exam: Present: mucous membranes moist - Neck Neck exam general surgery: Present: normal inspection, trachea midline - Respiratory Respiratory exam: Present: decreased breath sounds - Cardiovascular Cardiovascular exam: Present: RRR, +S1, +S2 - GI/Abdominal GI/Abdominal exam: Present: soft, no peritoneal signs. Absent: distended, firm , guarding, tenderness - Rectal Rectal exam: Present: deferred - Extremities Exam Extremities exam: Present: warm - Neurological Exam Neurological exam: Present: no focal deficits - Psychiatric Psychiatric exam: Present: normal affect, normal mood - Skin Skin exam: Present: dry, intact, normal color, warm Results - Labs CBC & Chem 7: 12/07/16 04:16 12/07/16 04:16 Labs: Last Result Calcium 8.3 mg/dL (8.6-10.8) L 12/07/16 04:16 Troponin I 0.00 ng/mL (0-0.03) 12/06/16 14:55 Salicylates < 5.0 mg/dL (15-30) L 12/06/16 14:55 Urine Opiates Screen Negative ng/mL (Jmprnw=[id number]) 12/06/16 16:17 Entire Visit Hgb 11.4 g/dL (11.5-15.4) L 12/07/16 04:16 Hct 35.2 % (35.3-44.9) L 12/07/16 04:16 PT 23.1 Seconds (9.4-12.1) H 12/07/16 08:56 Total Bilirubin 3.6 mg/dL (0.2-1.2) H 12/07/16 04:16 AST 49 Units/L (5-34) H 12/07/16 04:16 ALT 36 Units/L (0-55) 12/07/16 04:16 Ammonia 28 mcmol/L (18-72) 12/07/16 09:06 Lipase 28 Units/L (8-78) 12/06/16 14:55 Acetaminophen < 1.0 mcg/mL (10-30) L 12/06/16 14:55 - ABG ABG results: ABG ABG pH 7.45 pH Units (7.32-7.45) 12/06/16 15:08 ABG pCO2 35 mmHg (35-45) 12/06/16 15:08 ABG pO2 81 mmHg (85-104) L 12/06/16 15:08 ABG O2 Saturation 96 % (95-98) 12/06/16 15:08 PT/INR, D-dimer PT 23.1 Seconds (9.4-12.1) H 12/07/16 08:56 - Impressions Impressions Abdomen Ultrasound 12/06/16 18:18 IMPRESSION: Unremarkable right upper quadrant ultrasound. No evidence of ascites. Splenomegaly. D/ / Omaira Atkinson MD / Omaira Atkinson MD Interpreting Provider: Omaira Atkinson MD Consult Discharge Plan - Plan Referrals: Bianka Cassidy MD [Primary Care Provider] - 12/17/16 11:00 am (Pt will follow up with Dr. Cassidy for hospital admission ) <Jesus Kwok - Last Filed: 12/07/16 12:08> Date of Encounter: 12/07/16 - Time Spent With Patient Total time spent is greater than 50% in coordination of care (as documented) at patient's floor/unit and/or counseling patient: GI History of Present Illness - Data of Consult Requesting Physician: Hortensia Kennedy - Consult Narrative History of present illness: Ms. Horner is a 61 year old female - Constitutional Vitals: Temp Pulse Resp BP Pulse Ox 97.6 F 70 18 137/75 100 12/07/16 11:32 12/07/16 11:32 12/07/16 11:32 12/07/16 11:32 12/07/16 11:32 Results - Labs CBC & Chem 7: 12/07/16 04:16 12/07/16 04:16 Labs: Last Result Calcium 8.3 mg/dL (8.6-10.8) L 12/07/16 04:16 Troponin I 0.00 ng/mL (0-0.03) 12/06/16 14:55 Salicylates < 5.0 mg/dL (15-30) L 12/06/16 14:55 Urine Opiates Screen Negative ng/mL (Ymdeil=842) 12/06/16 16:17 Entire Visit Hgb 11.4 g/dL (11.5-15.4) L 12/07/16 04:16 Hct 35.2 % (35.3-44.9) L 12/07/16 04:16 PT 23.1 Seconds (9.4-12.1) H 12/07/16 08:56 Total Bilirubin 3.6 mg/dL (0.2-1.2) H 12/07/16 04:16 AST 49 Units/L (5-34) H 12/07/16 04:16 ALT 36 Units/L (0-55) 12/07/16 04:16 Ammonia 28 mcmol/L (18-72) 12/07/16 09:06 Lipase 28 Units/L (8-78) 12/06/16 14:55 Acetaminophen < 1.0 mcg/mL (10-30) L 12/06/16 14:55 - ABG ABG results: ABG ABG pH 7.45 pH Units (7.32-7.45) 12/06/16 15:08 ABG pCO2 35 mmHg (35-45) 12/06/16 15:08 ABG pO2 81 mmHg (85-104) L 12/06/16 15:08 ABG O2 Saturation 96 % (95-98) 12/06/16 15:08 PT/INR, D-dimer PT 23.1 Seconds (9.4-12.1) H 12/07/16 08:56 - Impressions Impressions Abdomen Ultrasound 12/06/16 18:18 IMPRESSION: Unremarkable right upper quadrant ultrasound. No evidence of ascites. Splenomegaly. D/ / Omaira Atkinson MD / Omaira Atkinson MD Interpreting Provider: Omaira Atkinson MD - Attending Attestation I examined this patient and my medical decision-making was reviewed with the FLIGHT ENGINEER/PA/Advanced Practice Nurse/Resident Physician. I agree with the documented findings, disposition and treatment plan as described except to the extent set forth below. Patient with cirrhosis now admitted with encephalopathy being seen by a plant health manager in [place]. No more rectal bleeding and hemoglobin is stable. Treatment for encephalopathy for now. Follow up with the plant health manager in [place] after discharge no endoscopy indicated." EGD done in November of last year
--- NOTE | 2016-12-07 13:37 | Discharge Summary ---
Date of Encounter: 12/07/16 Time of Encounter: 11:00 - Discharge Diagnosis (1) Hepatic encephalopathy Priority: Primary Status: Acute (2) CHF (congestive heart failure) Priority: Primary Status: Acute Qualifiers: Congestive heart failure type: unspecified congestive heart failure type Congestive heart failure chronicity: unspecified congestive heart failure chronicity Qualified Code(s): I50.9 - Heart failure, unspecified (3) Cirrhosis Priority: Secondary Status: Chronic Qualifiers: Hepatic cirrhosis type: unspecified hepatic cirrhosis Ascites presence: without ascites Qualified Code(s): K74.60 - Unspecified cirrhosis of liver (4) Vulva cancer Priority: Secondary Status: Chronic - Discharge Medications Prescriptions: Lactulose 30 gm PO QID #90 udc Phytonadione [Mephyton] 2.5 mg PO DAILY #20 tablet Rifaximin [Xifaxan] 400 mg PO TID #60 tablet Home Medications: Duloxetine HCl [Cymbalta] 60 mg PO QAM 07/08/15 [History] Budesonide/Formoterol 160/4.5 [Symbicort 160/4.5] 2 puff IH BID 07/11/15 [ History] Gabapentin [Neurontin] 300 mg PO HS 07/11/15 [History] Cyanocobalamin (B-12) [Vitamin B12] 1,000 mcg IM QMONTH 03/24/16 [History] Methylphenidate HCl [Concerta] 36 mg PO QAM 03/24/16 [History] Prochlorperazine Maleate [Compazine] 10 mg PO DAILY PRN 03/24/16 [History] Albuterol Sulfate [Proventil Hfa] 2 puff IH Q4H 10/24/16 [History] Duloxetine [Cymbalta] 30 mg PO HS 10/24/16 [History] Ergocalciferol (VITAMIN D2) [Vitamin D2] 50,000 unit PO TH 10/24/16 [History] Ferrous Sulfate [Iron] 325 mg PO QAM 10/24/16 [History] Furosemide [Lasix] 20 mg PO DAILY 10/24/16 [History] Lactulose [Enulose] 30 ml PO DAILY 10/24/16 [History] Methylphenidate HCl [Concerta] 27 mg PO QPM 10/24/16 [History] Pantoprazole Sodium [Protonix] 40 mg PO BID 10/24/16 [History] Saline Nasal [place] [[place] Nasal [place]] 1 spray NS QID 10/24/16 [History] Propranolol [Inderal] 10 mg PO BID 11/14/16 [History] Zinc Sulfate 220 mg PO BID 11/14/16 [History] Spironolactone [Aldactone] 25 mg PO QPM 11/27/16 [History] Multivit-Min/Iron Fum/Folic AC [Eirav-Ipkfmsc-Ozfhnpej Tablet] 1 tab PO DAILY [History] Lactulose 30 gm PO QID #90 udc 12/07/16 [Rx] Phytonadione [Mephyton] 2.5 mg PO DAILY #20 tablet 12/07/16 [Rx] Rifaximin [Xifaxan] 400 mg PO TID #60 tablet 12/07/16 [Rx] Allergies/Adverse Reactions: Allergies codeine Allergy (Mild, Verified 12/06/16 14:26) Hives montelukast [From Singulair] Allergy (Mild, Verified 12/06/16 14:26) Hives adhesive tape Allergy (Verified 12/06/16 14:26) Blister Procedures/tests Complete & Pending: Procedures Performed prior 72 hours Category Date Time Status US abdomen limited [US] Stat Exams 12/06/16 18:18 Completed EV echocardiogram Routine Y 12/07/16 09:04 Ordered Date of admission: 12/06/16 18:05 Primary care physician: Bianka Cassidy, Consults: 12/06/16 18:08 Consult to Gastroenterology [CONS] Routine Consulting Provider: Gastroenterology Haley Reason for Consult: lower GI bleed Call Completed: Yes 12/07/16 09:44 Consult to Oral Surgery Technician [CONS] Routine Reason for SW Consult: discharge planning Discharging clinician: Kiran Gan Anticipated date of discharge: 12/07/16 - Patient Status Disposition: Home, Self-Care Condition: Good Overall status at discharge: patient is progressing back to baseline - Discharge Instructions Follow Up With: Bianka Cassidy MD [Primary Care Provider] - 12/17/16 11:00 am (Pt will follow up with Dr. Cassidy for hospital admission ) - Diet and Activity Activity: increase activity as tolerated Diet: low fat, low cholesterol Hospital course: Ms. Horner is a 61 year old female with PMH significant for Liver Cirrhosis , presented with hepatic encephalopathy ammonia evel was 91 pt received extra dose of lactulose and rifaximin, drug screen was also positive or amphetamine , pt was instructed to avoid illegal substances, she is schedule to see her Gi docto in [place] in one week - Time Spent with Patient Total time spent providing and/or coordinating discharge services: Greater than 30 minutes - Constitutional Vitals: Temp Pulse Resp BP Pulse Ox 97.6 F 70 18 137/75 100 12/07/16 11:32 12/07/16 11:32 12/07/16 11:32 12/07/16 11:32 12/07/16 11:32 General appearance: Present: A&O X 2 (to self and daughter), A&O X 3, morbidly obese, no acute distress (somnolent) - Respiratory Respiratory exam: Present: decreased breath sounds - Cardiovascular Cardiovascular exam: Present: RRR, +S1, +S2 - GI/Abdominal GI/Abdominal exam: Present: normal bowel sounds, soft - Extremities Exam Extremities exam: Present: warm, radial pulses palpable and symetrical - VTE Documentation of Mechanical Device: Intermittent pneumatic compression device
[2016-12-07 15:48] LABS: Hepatitis A Antibody IgM Nonreactive (Nonreactive); Hepatitis B Core IgM Nonreactive (Nonreactive); Hepatitis B Surface Antigen Nonreactive (Nonreactive); Hepatitis C Virus Antibody Nonreactive (Nonreactive)
[2016-12-07 15:55] VITALS: BP 124/77
--- NOTE | 2016-12-07 16:24 | Physician Discharge Referral ---
Home Health/Hosp Referral Info Transfer to: Home Health - Diagnosis (1) Hepatic encephalopathy Priority: Primary Status: Acute (2) CHF (congestive heart failure) Priority: Secondary Status: Acute (3) Cirrhosis Status: Chronic (4) Vulva cancer Status: Chronic - Respiratory Orders Oxygen / L per min (2 litters) Smoking Cessation: Smoking cessation has been advised. For more information, call the [place] Tobacco Quit Line at 8-245-SPXS-NOW. - Diet/Nutrition Diet/Nutrition Orders: Cardiac - Activity Activity Orders: Up ad madisyn - Services Needed Following services are medically necessary services: Physical Therapy, Occupational Therapy - Transfer Medications Prescriptions: Lactulose 30 gm PO QID #90 udc Phytonadione [Mephyton] 2.5 mg PO DAILY #20 tablet Rifaximin [Xifaxan] 400 mg PO TID #60 tablet Home Medications: Duloxetine HCl [Cymbalta] 60 mg PO QAM 07/08/15 [History] Budesonide/Formoterol 160/4.5 [Symbicort 160/4.5] 2 puff IH BID 07/11/15 [ History] Gabapentin [Neurontin] 300 mg PO HS 07/11/15 [History] Cyanocobalamin (B-12) [Vitamin B12] 1,000 mcg IM QMONTH 03/24/16 [History] Methylphenidate HCl [Concerta] 36 mg PO QAM 03/24/16 [History] Prochlorperazine Maleate [Compazine] 10 mg PO DAILY PRN 03/24/16 [History] Albuterol Sulfate [Proventil Hfa] 2 puff IH Q4H 10/24/16 [History] Duloxetine [Cymbalta] 30 mg PO HS 10/24/16 [History] Ergocalciferol (VITAMIN D2) [Vitamin D2] 50,000 unit PO TH 10/24/16 [History] Ferrous Sulfate [Iron] 325 mg PO QAM 10/24/16 [History] Furosemide [Lasix] 20 mg PO DAILY 10/24/16 [History] Lactulose [Enulose] 30 ml PO DAILY 10/24/16 [History] Methylphenidate HCl [Concerta] 27 mg PO QPM 10/24/16 [History] Pantoprazole Sodium [Protonix] 40 mg PO BID 10/24/16 [History] Saline Nasal [place] [[place] Nasal [place]] 1 spray NS QID 10/24/16 [History] Propranolol [Inderal] 10 mg PO BID 11/14/16 [History] Zinc Sulfate 220 mg PO BID 11/14/16 [History] Spironolactone [Aldactone] 25 mg PO QPM 11/27/16 [History] Multivit-Min/Iron Fum/Folic AC [Dking-Bchxnnw-Xrjrstcl Tablet] 1 tab PO DAILY [History] Lactulose 30 gm PO QID #90 udc 12/07/16 [Rx] Phytonadione [Mephyton] 2.5 mg PO DAILY #20 tablet 12/07/16 [Rx] Rifaximin [Xifaxan] 400 mg PO TID #60 tablet 12/07/16 [Rx] Allergies/Adverse Reactions: Allergies codeine Allergy (Mild, Verified 12/06/16 14:26) Hives montelukast [From Singulair] Allergy (Mild, Verified 12/06/16 14:26) Hives adhesive tape Allergy (Verified 12/06/16 14:26) Blister Certification: Further, I certify that my clinical findings support that this patient is homebound (i.e. absences from home require considerable and taxing effort and are for medical reasons or judaism services or infrequently or short duration when for other reasons) because: Homebound Reason: Patient requires assistance of a person or device to safely leave home, Leaving home requires considerable and taxing effort due to condition Attestation: My signature below is to certify that this patient is under my care and that I, or nurse practitioner, or a physician's title i instructional assistant working with me, has a face-to -face encounter with this patient.
--- NOTE | 2016-12-07 16:34 | Electrocardiograph Report ---
[facility] Test Date: 2016-12-06 Pat Name: Michelle Evens Department: [id number] Room: 2A22 Gender: F History Card Clerk: PAPITO : 1955 Requested By: Ladarius Sheffield Order Number: [id number] Reading MD: Rex Love DO Measurements Intervals [place] Rate: 71 P: 45 [place]: 136 QRS: 44 QRSD: 106 T: 33 QT: 429 QTc: 452 Interpretive Statements Sinus rhythm Electronically Signed On 12-07-16 16:33:20 EST by Rex Love DO
[2016-12-07] MEDS ORDERED: SODIUM CHLORIDE/NAHCO3/KCL/PEG 4,000 ML SOLN.RECON PO ONE (17:00)
== END 2016-12-07 18:55 | disposition home or self-care (01) ==
LOC: 3BNU 14:17 → EMEROO 14:17 → 2ANU 17:58
PROVIDERS: ADMIT Internal Medicine; ATTEND Nurse Practitioner Family

== ENCOUNTER 2017-07-02 16:06 | Inpatient (IN) ==
[2017-07-02] MEDS ORDERED: Levofloxacin 750 MG/150 ML 750 MG/150 ML BAG IVPB ONE (16:39)
[2017-07-02] MEDS ORDERED: Piperacillin/Tazobactam 3.375 GM in D5% in Water (Mini-Bag+) 100 ML IVPB ONE (16:39)
[2017-07-02] MEDS ORDERED: Vancomycin 1,750 MG in D5% in Water 500 ML IVPB ONE (16:51)
[2017-07-02] MEDS: 0.9 % Sodium Chloride 1,000 ML IVC SCH (17:26)
[2017-07-02 17:30] LABS: Hemoglobin 11.9 g/dL (11.5-15.4)
[2017-07-02 17:31] LABS: Clarity,Urine Turbid (Clear); Color,Urine Brown (Yellow); Glucose,Urine (UA) Normal (Normal)
[2017-07-02 17:32] LABS: Basophils % 0.2 %; Eosinophils % 0.2 %; Hematocrit 35.6 % (35.3-44.9); Immature Granulocytes % 1.8 % (0-4); Immature Platelets 3.7 % (1.1-6.1); Lymphocytes # 0.4 K/mcL (0.6-4.6); Lymphocytes % 1.7 %; Mean Corpuscular HGB Conc 33.4 g/dL (31.6-35.5); Mean Corpuscular Hemoglobin 32.3 pg (28.0-33.3); Mean Corpuscular Volume 96.7 fL (83.0-100.0); Mean Platelet Volume 10.7 fL (9.4-12.4); Monocytes # 0.6 K/mcL (0.0-1.3); Monocytes % 2.5 %; Neutrophils # 20.5 K/mcL (1.6-8.9); Red Blood Count 3.68 M/mcL (3.82-4.97); Red Cell Distribution Width 17.7 % (11.5-14.5); Segmented Neutrophils % 93.6 %
[2017-07-02 17:32] LABS: Bilirubin,Urine Moderate (Negative); Blood,Urine Large (Negative); Ketones,Urine Trace mg/dL (Negative); Specific Gravity,Urine 1.025 (1.010-1.025)
[2017-07-02 17:34] LABS: Protein,Urine 30 mg/dL (Neg-Trace); Urobilinogen,Urine Normal (Normal)
[2017-07-02 17:34] LABS: Platelet Count 65 K/mcL (140-400)
[2017-07-02 17:35] LABS: Leukocyte Esterase,Urine Large (Negative); Nitrite,Urine Positive (Negative)
[2017-07-02 17:36] LABS: Platelet Estimate Decreased (Normal)
[2017-07-02 17:41] LABS: INR 2.6; Prothrombin Time 28.6 Seconds (9.4-12.1)
[2017-07-02 17:44] LABS: Activated Partial Thrombo Time 68.9 Seconds (26.0-36.0)
[2017-07-02 17:44] LABS: Squamous Epithelial Cell,Urine Many per lpf (None-Few)
[2017-07-02 17:46] LABS: RBC,Urine 0-3 per hpf (0-3)
[2017-07-02 17:46] LABS: Albumin 1.6 g/dL (3.5-5.0); Albumin/Globulin Ratio 0.3 (1.1-2.2); Bilirubin,Direct 2.7 mg/dL (0.0-0.5); Bilirubin,Indirect 2.4 mg/dL (0.0-1.2); Bilirubin,Total 5.1 mg/dL (0.2-1.2); Calcium 8.7 mg/dL (8.6-10.8); Globulin 4.7 g/dL (2.4-3.5); Magnesium 1.1 mg/dL (1.6-2.6); Potassium 4.4 mEq/L (3.5-4.5); Total Protein 6.3 g/dL (6.0-8.3)
[2017-07-02 17:47] LABS: WBC,Urine TNTC per hpf (0-3); Yeast,Urine Many per hpf (None Seen)
[2017-07-02] MEDS ORDERED: Magnesium Sulfate 1 GM in D5% in Water 100 ML IVPB ONE (18:11)
[2017-07-02] MEDS ORDERED: *HR* Dextrose 50 % in Water (Syg) 50 ML SYRINGE IVP ONE (18:16)
[2017-07-02] MEDS ORDERED: *HR* Dextrose 50 % in Water (Syg) 50 ML SYRINGE ONE (18:16)
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
[2017-07-02] MEDS ORDERED: Naloxone 0.4 MG/ML INJ IVP PRN (20:11)
[2017-07-02] MEDS ORDERED: Ondansetron 4 MG/2 ML VIAL IVP PRN (20:11)
[2017-07-02] MEDS ORDERED: D5% in Water 1,000 ML IVC PRN (20:31)
[2017-07-02] MEDS ORDERED: *HR* Dextrose 50 % in Water (Syg) 50 ML SYRINGE IVP PRN (20:31)
[2017-07-02] MEDS ORDERED: Dextrose Gel 15 GM PO PRN ×2 (20:31)
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
[2017-07-02] MEDS: Norepinephrine 4 MG in D5% in Water 250 ML IVC SCH (20:40)
[2017-07-02] MEDS ORDERED: Potassium Chloride 40 MEQ/200 ML BAG IVPB PRN (20:48)
[2017-07-02] MEDS ORDERED: Calcium Gluconate 1,000 MG in D5% in Water 100 ML IVPB PRN (20:48)
[2017-07-02] MEDS: (Rifaximin [Xifaxan] 550 MG) PO SCH (21:59)
[2017-07-02] MEDS: Lactulose Oral Soln 20 GM/30 ML UDC PO SCH (21:59)
[2017-07-02] MEDS: 0.9 % Sodium Chloride 1,000 ML IVC ONE (22:08)
[2017-07-02] MEDS: Albumin 25% 25gram/100mL 25 GM/100 ML IV.SOLN IVC SCH ×2 (22:09→23:58)
[2017-07-02] MEDS: Budesonide/Formoterol 160/4.5 MDI IH SCH (22:26)
[2017-07-02 22:31] LABS: ABG Base Excess -13.5 mEq/L (-2.0 to 3.0); ABG HCO3 9.6 mEQ/L (21-27); ABG Oxygen Saturation 94 % (95-98); ABG PH 7.36 pH Units (7.32-7.45); ABG PO2 74 mmHg (85-104); ABG TCO2 10.1 mEq/L (20-26)
[2017-07-02 22:32] LABS: Blood Gas FiO2 32 %
[2017-07-02 22:36] LABS: ABG PCO2 17 mmHg (35-45)
[2017-07-02] MEDS ORDERED: Sodium Bicarbonate 150 MEQ in D5% in Water 1,000 ML IVC SCH (23:45)
[2017-07-02] MEDS: Piperacillin/Tazobactam 3.375 GM in D5% in Water (Mini-Bag+) 100 ML IVPB SCH (23:57)
[2017-07-03] MEDS ORDERED: 0.9 % Sodium Chloride 1,000 ML ONE (00:20)
[2017-07-03] MEDS: 0.9 % Sodium Chloride 1,000 ML IVC SCH (00:22)
[2017-07-03] MEDS: Insulin LISPRO 300 UNITS/3 ML VIAL SQ SCH ×5 (00:23→23:27)
[2017-07-03 01:34] LABS: Calcium 8.2 mg/dL (8.6-10.8); Magnesium 1.3 mg/dL (1.6-2.6); Phosphorous 3.4 mg/dL (2.3-4.7); Potassium 4.7 mEq/L (3.5-4.5)
[2017-07-03] MEDS: Albumin 25% 25gram/100mL 25 GM/100 ML IV.SOLN IVC SCH ×4 (01:56→11:08)
[2017-07-03] MEDS: 0.9 % Sodium Chloride 1,000 ML IVC ONE (03:09)
[2017-07-03] MEDS: Magnesium Sulfate 2 GM in D5% in Water 100 ML IVPB PRN (04:05)
[2017-07-03] MEDS ORDERED: *HR* Heparin 5,000 UNIT/ML VIAL SQ SCH (06:00)
[2017-07-03 08:01] LABS: Acinetobacter baumannii by PCR Not Detected (Not Detect); Candida albicans by PCR Not Detected (Not Detect); Candida glabrata by PCR Not Detected (Not Detect); Candida krusei by PCR Not Detected (Not Detect); Candida parapsilosis by PCR Not Detected (Not Detect); Candida tropicalis by PCR Not Detected (Not Detect); Enterococcus by PCR Not Detected (Not Detect); Escherichia coli by PCR Not Detected (Not Detect); Klebsiella oxytoca by PCR Not Detected (Not Detect); Klebsiella pneumoniae by PCR Not Detected (Not Detect); Pseudomonas aeruginosa by PCR Not Detected (Not Detect); Serratia marcescens by PCR Not Detected (Not Detect); Staphylococcus aureus by PCR Not Detected (Not Detect); Streptococcus agalactiae(B)PCR Not Detected (Not Detect); Streptococcus by PCR Not Detected (Not Detect); Streptococcus pneumoniae PCR Not Detected (Not Detect); Streptococcus pyogenes (A) PCR Not Detected (Not Detect); blaKPC Carbapenem-Resist Gene Not Detected (Not Detect); mecA Methicillin-Resist Gene Not Detected (Not Detect); vanA/B Vancomycin-Resist Genes Not Detected (Not Detect)
[2017-07-03] MEDS: Budesonide/Formoterol 160/4.5 MDI IH SCH ×2 (08:09→19:56)
[2017-07-03 08:24] LABS: ABG Base Excess -5.1 mEq/L (-2.0 to 3.0); ABG HCO3 17.8 mEQ/L (21-27); ABG Oxygen Saturation 93 % (95-98); ABG PCO2 25 mmHg (35-45); ABG PH 7.46 pH Units (7.32-7.45); ABG PO2 63 mmHg (85-104); ABG TCO2 18.6 mEq/L (20-26)
[2017-07-03 08:25] LABS: Blood Gas FiO2 32 %
[2017-07-03 08:30] LABS: Calcium 8.5 mg/dL (8.6-10.8); Magnesium 1.7 mg/dL (1.6-2.6); Phosphorous 2.8 mg/dL (2.3-4.7); Potassium 4.1 mEq/L (3.5-4.5)
[2017-07-03] MEDS ORDERED: *HR* HYDROmorphone (PF) 1 MG/ML SYRINGE IVP ONE (08:38)
[2017-07-03] MEDS: Piperacillin/Tazobactam 3.375 GM in D5% in Water (Mini-Bag+) 100 ML IVPB SCH ×3 (09:11→23:31)
[2017-07-03] MEDS: Pantoprazole 40 MG VIAL IVPB SCH (09:13)
[2017-07-03] MEDS: (Rifaximin [Xifaxan] 550 MG) PO SCH (09:13)
[2017-07-03] MEDS: Lactulose Oral Soln 20 GM/30 ML UDC PO SCH ×2 (09:13→19:45)
[2017-07-03 09:18] LABS: Basophils % 0.1 %; Eosinophils % 0.4 %; Hematocrit 24.8 % (35.3-44.9); Hemoglobin 8.4 g/dL (11.5-15.4); Immature Granulocytes % 0.8 % (0-4); Immature Platelets 3.2 % (1.1-6.1); Lymphocytes # 0.4 K/mcL (0.6-4.6); Lymphocytes % 3.4 %; Mean Corpuscular HGB Conc 33.9 g/dL (31.6-35.5); Mean Corpuscular Hemoglobin 32.7 pg (28.0-33.3); Mean Corpuscular Volume 96.5 fL (83.0-100.0); Mean Platelet Volume 10.2 fL (9.4-12.4); Monocytes # 0.7 K/mcL (0.0-1.3); Monocytes % 6.8 %; Neutrophils # 9.2 K/mcL (1.6-8.9); Red Blood Count 2.57 M/mcL (3.82-4.97); Red Cell Distribution Width 17.2 % (11.5-14.5); Segmented Neutrophils % 88.5 %
[2017-07-03 09:23] LABS: Platelet Count 35 K/mcL (140-400)
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
[2017-07-03 09:52] LABS: Burr Cells 2+ (Not Present); Toxic Granulation Present (Not Present)
--- NOTE | 2017-07-03 10:30 | OB/GYN Consult Note ---
Date of Encounter: 07/03/17 Time of Encounter: 09:45 Assessment and Plan (1) Vulvar cancer, carcinoma Current Visit: Yes Status: Chronic Exam today was deferred to patient discomfort. The patient's history of vulvar cancer is non-contributory to her current hospitalization. [facility] will sign off at this time. Please feel free to contact us with further questions. History of Present Illness Consult date: 07/03/17 Requesting physician: Finn Jamison Reason for consult: other (vulvar cancer) Chief complaint: Septic Shock History of present illness: The [facility] service was consulted for Ms Michelle Horner due to a history of vulvar cancer. She was admitted to the ICU due to septic shock. Ms Horner is currently obtunded and no family is present for a current history. Per her medical records, she was on [employer] in 2015 after 2 doses of cispatin in 2013 with radiation therapy for squamous cell carcinoma in situ which was at the time anterior to her urethra and extended posteriorly along her anterior vagina 2cm. At the time it was believed to not be resectable. Her medical history of note per records include: Vulvar squamous cell carcinoma in situ, depression, hypertension, diabetes mellitus, history of DVT, cirrhosis, chronic back pain, COPD, connective tissue disorder, lupus, esophageal varices, and cellulitis with hospitalization for IV antibiotic treatment. Surgical history includes per records: appendectomy, cholecystectomy, partial hysterectomy, oophorectomy, 2 sections, and esophageal banding of varices. Past Med Surg Social Fam HX - Past Medical History Medical history: other (diverticulosis) Psychiatric history: anxiety, depression - Past Surgical History Surgical History: appendectomy, , cholecystectomy, other - Social History Smoking Status: Former smoker Smokeless Tobacco Status: No Alcohol use: none Drug use: none - Family History Brother Hx Family Cardiac Disorders: Yes Hx Family Cancer: Yes Mother Hx Family Cardiac Disorders: Yes (cabg, HTN) Hx Family Endocrine Disorder: Yes (diabetes) Hx Family Neurologic Disorders: Yes (alzheimers) Medications and Allergies Duloxetine HCl [Cymbalta] 60 mg PO QAM 07/08/15 [History] Budesonide/Formoterol 160/4.5 [Symbicort 160/4.5] 2 puff IH BID 07/11/15 [ History] Cyanocobalamin (B-12) [Vitamin B12] 1,000 mcg IM QMONTH 03/24/16 [History] Methylphenidate HCl [Concerta] 36 mg PO QAM 03/24/16 [History] Prochlorperazine Maleate [Compazine] 10 mg PO DAILY PRN 03/24/16 [History] Albuterol Sulfate [Proventil Hfa] 2 puff IH Q4H PRN 10/24/16 [History] DULoxetine [Cymbalta] 30 mg PO HS 10/24/16 [History] Ergocalciferol (VITAMIN D2) [Vitamin D2] 50,000 unit PO TH 10/24/16 [History] Furosemide [Lasix] 20 mg PO DAILY 10/24/16 [History] Methylphenidate HCl [Concerta] 27 mg PO QPM 10/24/16 [History] Pantoprazole Sodium [Protonix] 40 mg PO BID 10/24/16 [History] Saline Nasal Hiram [[place] Nasal Hiram] 1 spray NS QID PRN 10/24/16 [History] Multivit-Min/Iron Fum/Folic AC [Bhmcj-Nexvrlw-Ywiexvvm Tablet] 1 tab PO DAILY [History] Spironolactone [Aldactone] 75 mg PO QAM 01/31/17 [History] Ammonium Lactate [Chikis-Hydrolac] 1 appl TP BID 07/02/17 [History] Gabapentin [Neurontin] 200 mg PO TID 07/02/17 [History] Hydroxychloroquine [Plaquenuil] 200 mg PO BID 07/02/17 [History] Lactulose 20 gm PO BID 07/02/17 [History] Liraglutide [Victoza 2-Kee] 1.8 mg SQ DAILY 07/02/17 [History] Medroxyprogesterone Acetate [Provera] 10 mg PO DAILY 07/02/17 [History] Metformin HCl [Metformin HCl ER] 500 mg PO QPM 07/02/17 [History] Polyethylene Glycol 3350 [MiraLAX] 17 gm PO DAILY 07/02/17 [History] Rifaximin [Xifaxan] 550 mg PO BID 07/02/17 [History] Tramadol HCl [Ultram] 50 mg PO BID 07/02/17 [History] Allergies codeine Allergy (Mild, Verified 07/02/17 16:50) Hives montelukast [From Singulair] Allergy (Mild, Verified 07/02/17 16:50) Hives adhesive tape Allergy (Verified 07/02/17 16:50) Hives Review of Systems ROS unobtainable: due to mental status Exam - Vital Signs Vital signs: Initial Vital Signs Temp Pulse Resp BP Pulse Ox 99.7 F H 132 20 82/58 96 07/02/17 16:08 07/02/17 16:08 07/02/17 16:08 07/02/17 16:08 07/02/17 16:08 - Constitutional Constitutional: no acute distress - Comments Comments: Patient obtunded upon exam; responsive to painful stimulus. Exam was not completed due to verbalizing pain with shifting of legs and patient habitus. Results Result Diagrams: 07/03/17 16:55 07/03/17 08:12 Abnormal lab results RBC 2.57 M/mcL (3.82-4.97) L 07/03/17 09:07 Hgb 8.4 g/dL (11.5-15.4) L D 07/03/17 09:07 Hct 24.8 % (35.3-44.9) L 07/03/17 09:07 RDW 17.2 % (11.5-14.5) H 07/03/17 09:07 Plt Count 35 K/mcL (140-400) L 07/03/17 09:07 Neutrophils # 9.2 K/mcL (1.6-8.9) H 07/03/17 09:07 Lymphocytes # 0.4 K/mcL (0.6-4.6) L 07/03/17 09:07 Toxic Granulation Present (Not Present) A 07/03/17 09:07 Platelet Estimate Decreased (Normal) L 07/02/17 17:16 Gordon Cells 2+ (Not Present) A 07/03/17 09:07 PT 28.6 Seconds (9.4-12.1) H 07/02/17 17:16 APTT 68.9 Seconds (26.0-36.0) H 07/02/17 17:16 ABG pH 7.46 pH Units (7.32-7.45) H 07/03/17 08:13 ABG pCO2 25 mmHg (35-45) L 07/03/17 08:13 ABG pO2 63 mmHg (85-104) L 07/03/17 08:13 ABG HCO3 17.8 mEQ/L (21-27) L 07/03/17 08:13 ABG Total CO2 18.6 mEq/L (20-26) L 07/03/17 08:13 ABG O2 Saturation 93 % (95-98) L 07/03/17 08:13 ABG Base Excess -5.1 mEq/L (-2.0 to 3.0) L 07/03/17 08:13 Sodium 128 mEq/L (136-145) L 07/03/17 08:12 Carbon Dioxide 18 mEq/L (19-29) L 07/03/17 08:12 BUN 32 mg/dL (7-20) H 07/03/17 08:12 Creatinine 1.22 mg/dL (0.57-1.11) H 07/03/17 08:12 Est GFR ( Amer) 55 (> 60) L 07/03/17 08:12 Est GFR (Non-Af Amer) 45 (> 60) L 07/03/17 08:12 Glucose 149 mg/dL (70-99) H 07/03/17 08:12 POC Glucose 139 (58-89) H 07/03/17 06:00 Calculated Osmolality 276 (280-300) L 07/03/17 08:12 Lactic Acid 3.3 mmol/L (0.5-2.2) H 07/03/17 09:40 Calcium 8.5 mg/dL (8.6-10.8) L 07/03/17 08:12 Ionized Calcium 1.07 mmol/L (1.15-1.35) L 07/03/17 00:28 Total Bilirubin 5.1 mg/dL (0.2-1.2) H 07/02/17 17:16 Direct Bilirubin 2.7 mg/dL (0.0-0.5) H 07/02/17 17:16 Indirect Bilirubin 2.4 mg/dL (0.0-1.2) H 07/02/17 17:16 AST 49 Units/L (5-34) H 07/02/17 17:16 ALT 57 Units/L (0-55) H 07/02/17 17:16 Alkaline Phosphatase 197 Units/L (38-126) H 07/02/17 17:16 Albumin 1.6 g/dL (3.5-5.0) L 07/02/17 17:16 Globulin 4.7 g/dL (2.4-3.5) H 07/02/17 17:16 Albumin/Globulin Ratio 0.3 (1.1-2.2) L 07/02/17 17:16 Ur Specimen Adequacy See below A 07/02/17 16:45 Urine Clarity Turbid (Clear) A 07/02/17 16:45 Urine Protein 30 mg/dL (Neg-Trace) H 07/02/17 16:45 Urine Ketones Trace mg/dL (Negative) H 07/02/17 16:45 Urine Blood Large (Negative) H 07/02/17 16:45 Urine Nitrite Positive (Negative) A 07/02/17 16:45 Urine Bilirubin Moderate (Negative) H 07/02/17 16:45 Ur Leukocyte Esterase Large (Negative) H 07/02/17 16:45 Urine Microscopic WBC TNTC per hpf (0-3) H 07/02/17 16:45 Ur Squamous Epith Cells Many per lpf (None-Few) H 07/02/17 16:45 Urine Yeast Many per hpf (None Seen) H 07/02/17 16:45 Ur Culture Indicated? YES (NO) A 07/02/17 16:45 Enterobacteriac sp PCR DETECTED (Not Detect) A 07/02/17 17:16 E. cloacae complex PCR DETECTED (Not Detect) A 07/02/17 17:16 All other labs normal. Consult Discharge Plan - Plan Referrals: NONE,PCP [Primary Care Provider] - - Attending Attestation I have personally evaluated this patient with Sahra Maza CNM. I agree with documented history and exam. This pt is not able to be examined and verbally expresses pain at our attempt to examine her. This information was passed to the pt's ICU care associate team physician. The [facility] service is signing off at this time.
[2017-07-03] MEDS ORDERED: Propofol 500 MG/50 ML INFUS..BTL ONE (10:41)
[2017-07-03] MEDS ORDERED: Lacri-Lube 3.5 GM TUBE BOTH EYES PRN (11:01)
--- NOTE | 2017-07-03 11:10 | Procedure Note ---
<Shane Almendarez - Last Filed: 07/03/17 11:08> Date of procedure: 07/03/17 Pre-op diagnosis: acute respiratory failure and altered mental status Post-op diagnosis: same Procedure: Endotracheal Intubation Date: 07/03/17 Time:11:00am Indication: Respiratory Decline/Altered Mental Status Resident: Shane Almendarez D.O. Attending: Dr. Forte A time-out was completed verifying correct patient, procedure, site, positioning , and proper equipment . The patient was placed in a flat position. Sedation was obtained using 30mL of propofol. The patient was easily ventilated using an ambu bag. A 7.5-honduran endotracheal tube was inserted and visualized going through the vocal cords using a glidescope. The stylette was removed. Colorimetric change was visualized on the CO2 meter. Breath sounds were heard in both lung aragon equally. The endotracheal tube was placed at 22 cm, measured at the lip. Dr. Forte was present for the entire procedure. A chest x-ray was ordered to assess for pneumothorax and verify endotrachealtube placement. Estimated Blood Loss: 0cc The patient tolerated the procedure well and there were no complications. Anesthesia: IV sedation (30mL Propofol) Condition: stable Disposition: ICU <Digna Forte - Last Filed: 07/03/17 13:00> Procedure: I have personally supervised Dr. Almendarez placing ET tube with Glidodoscope without immediate complications.
[2017-07-03] MEDS: FentaNYL (PF) 1,000 MCG in 0.9 % Sodium Chloride 80 ML IVC SCH ×3 (11:22→22:28)
[2017-07-03] MEDS: Dexmedetomidine HCl 400 MCG/100 ML MLS IVC SCH ×4 (11:27→21:30)
[2017-07-03 11:50] LABS: ABG Base Excess -5.5 mEq/L (-2.0 to 3.0); ABG HCO3 18.9 mEQ/L (21-27); ABG Oxygen Saturation 98 % (95-98); ABG PCO2 32 mmHg (35-45); ABG PH 7.38 pH Units (7.32-7.45); ABG PO2 101 mmHg (85-104); ABG TCO2 19.9 mEq/L (20-26); Blood Gas FiO2 50 %
[2017-07-03] MEDS ORDERED: Vancomycin 1,750 MG in D5% in Water 500 ML IVPB SCH (12:00)
[2017-07-03] MEDS: Lacri-Lube 3.5 GM TUBE BOTH EYES SCH ×4 (14:03→23:27)
[2017-07-03] MEDS: Norepinephrine 4 MG in D5% in Water 250 ML IVC SCH (16:46)
[2017-07-03 17:05] LABS: Eosinophils % 0.9 %; Hemoglobin 8.5 g/dL (11.5-15.4); Lymphocytes % 3.4 %; Mean Corpuscular Volume 97.7 fL (83.0-100.0)
[2017-07-03 17:07] LABS: Basophils % 0.1 %; Eosinophils # 0.1 K/mcL (0.0-0.6); Hematocrit 25.7 % (35.3-44.9); Immature Granulocytes % 0.7 % (0-4); Immature Platelets 3.5 % (1.1-6.1); Lymphocytes # 0.3 K/mcL (0.6-4.6); Mean Corpuscular HGB Conc 33.1 g/dL (31.6-35.5); Mean Corpuscular Hemoglobin 32.3 pg (28.0-33.3); Mean Platelet Volume 10.5 fL (9.4-12.4); Monocytes # 0.6 K/mcL (0.0-1.3); Monocytes % 7.2 %; Red Blood Count 2.63 M/mcL (3.82-4.97); Red Cell Distribution Width 17.3 % (11.5-14.5); Segmented Neutrophils % 87.7 %
[2017-07-03 17:13] LABS: INR 3.5
[2017-07-03 17:14] LABS: Platelet Count 34 K/mcL (140-400)
[2017-07-03 17:15] LABS: Activated Partial Thrombo Time 61.3 Seconds (26.0-36.0)
[2017-07-03 17:18] LABS: Calcium 8.5 mg/dL (8.6-10.8); Potassium 4.1 mEq/L (3.5-4.5)
[2017-07-03] MEDS: Chlorhexidine Rinse 15 ML MOUTHWASH MM SCH (19:43)
[2017-07-03] MEDS ORDERED: Vancomycin 1,750 MG in D5% in Water 250 ML IVPB SCH (21:00)
--- NOTE | 2017-07-03 21:50 | Electrocardiograph Report ---
[address] [place] [address] Test Date: 2017-07-02 Pat Name: Michelle Evens Department: 102 Room: [facility] Gender: F [employer] Vendor: Evi : 1955 Requested By: Lorenzo Howard Order Number: [id number] Reading MD: Peg Lugo Measurements Intervals [place] Rate: 122 P: 60 DC: 140 QRS: 47 QRSD: 100 T: 36 QT: 336 QTc: 408 Interpretive Statements SINUS TACHYCARDIA WITH OCCASIONAL VENTRICULAR PREMATURE COMPLEXES NONSPECIFIC T-WAVE ABNORMALITY ABNORMAL RHYTHM ECG Electronically Signed On 07-03-2017 21:48:20 EDT by Peg Lugo
[2017-07-04 00:47] LABS: Basophils % 0.2 %; Hemoglobin 8.6 g/dL (11.5-15.4)
[2017-07-04 00:49] LABS: Eosinophils # 0.1 K/mcL (0.0-0.6); Eosinophils % 1.3 %; Hematocrit 26.1 % (35.3-44.9); Immature Granulocytes % 0.6 % (0-4); Immature Platelets 4.2 % (1.1-6.1); Lymphocytes # 0.2 K/mcL (0.6-4.6); Lymphocytes % 3.8 %; Mean Corpuscular Hemoglobin 32.3 pg (28.0-33.3); Mean Corpuscular Volume 98.1 fL (83.0-100.0); Mean Platelet Volume 11.4 fL (9.4-12.4); Monocytes # 0.4 K/mcL (0.0-1.3); Monocytes % 6.1 %; Neutrophils # 5.5 K/mcL (1.6-8.9); Red Blood Count 2.66 M/mcL (3.82-4.97); Red Cell Distribution Width 17.3 % (11.5-14.5)
[2017-07-04 00:54] LABS: INR 3.4; Prothrombin Time 38.1 Seconds (9.4-12.1)
[2017-07-04 00:55] LABS: Platelet Count 28 K/mcL (140-400)
[2017-07-04 00:56] LABS: Activated Partial Thrombo Time 64.8 Seconds (26.0-36.0)
[2017-07-04 01:01] LABS: Calcium 8.3 mg/dL (8.6-10.8)
[2017-07-04] MEDS: Dexmedetomidine HCl 400 MCG/100 ML MLS IVC SCH ×3 (01:29→20:00)
[2017-07-04 01:38] LABS: Anisocytosis 1+ (Not Present); Burr Cells 1+ (Not Present); Platelet Estimate Marked Decrease (Normal); Poikilocytosis 1+ (Not Present)
[2017-07-04] MEDS: Lacri-Lube 3.5 GM TUBE BOTH EYES SCH ×6 (03:19→23:59)
[2017-07-04 06:21] LABS: Hemoglobin 9.1 g/dL (11.5-15.4); Lymphocytes % 3.5 %
[2017-07-04 06:23] LABS: Basophils % 0.2 %; Eosinophils # 0.2 K/mcL (0.0-0.6); Eosinophils % 2.4 %; Hematocrit 27.7 % (35.3-44.9); Immature Granulocytes % 0.5 % (0-4); Immature Platelets 4.1 % (1.1-6.1); Lymphocytes # 0.2 K/mcL (0.6-4.6); Mean Corpuscular HGB Conc 32.9 g/dL (31.6-35.5); Mean Corpuscular Hemoglobin 32.2 pg (28.0-33.3); Mean Corpuscular Volume 97.9 fL (83.0-100.0); Mean Platelet Volume 11.4 fL (9.4-12.4); Monocytes # 0.4 K/mcL (0.0-1.3); Monocytes % 5.7 %; Neutrophils # 5.8 K/mcL (1.6-8.9); Red Blood Count 2.83 M/mcL (3.82-4.97); Segmented Neutrophils % 87.7 %
[2017-07-04 06:27] LABS: Platelet Count 27 K/mcL (140-400)
[2017-07-04 06:28] LABS: ABG Base Excess -5.9 mEq/L (-2.0 to 3.0); ABG HCO3 19.5 mEQ/L (21-27); ABG Oxygen Saturation 89 % (95-98); ABG PCO2 37 mmHg (35-45); ABG PH 7.33 pH Units (7.32-7.45); ABG PO2 61 mmHg (85-104); ABG TCO2 20.6 mEq/L (20-26); Blood Gas FiO2 50 %
[2017-07-04 06:41] LABS: Anisocytosis 1+ (Not Present); Burr Cells 1+ (Not Present); Platelet Estimate Marked Decrease (Normal); Poikilocytosis 1+ (Not Present)
[2017-07-04] MEDS: Insulin LISPRO 300 UNITS/3 ML VIAL SQ SCH ×4 (06:42→23:53)
[2017-07-04] MEDS: FentaNYL (PF) 1,000 MCG in 0.9 % Sodium Chloride 80 ML IVC SCH ×2 (07:30→17:52)
[2017-07-04] MEDS: Budesonide/Formoterol 160/4.5 MDI IH SCH ×2 (07:41→22:50)
--- NOTE | 2017-07-04 07:48 | Pulmonology Progress Note ---
<Finn Jamison - Last Filed: 07/04/17 16:10> Date of Encounter: 07/04/17 Time of Encounter: 07:46 Assessment and Plan (1) Gram negative septic shock Current Visit: Yes Status: Acute Septic shock due to Enterobacter. We will continue Zosyn and Cipro at this time. We will discontinue the vancomycin. Patient is currently intubated and on a ventilator. Patient is still requiring Levophed to maintain blood pressure. We have consulted palliative care and they have informed us that the patient has a very specific advanced directive. (2) Lactic acidosis Current Visit: Yes Status: Acute Lactic acidosis continues to improve. Patient's last lactic acid level was 1.7. We will continue to follow lactic acid level. (3) Urinary tract infection Current Visit: Yes Status: Acute Patient has urinary tract infection. We are still waiting for the culture results. Patient is currently on Zosyn and Cipro. Qualifiers: Urinary tract infection type: site unspecified Hematuria presence: without hematuria Qualified Code(s): N39.0 - Urinary tract infection, site not specified (4) Altered mental status Current Visit: Yes Status: Acute Patient is currently intubated and sedated and on the ventilator. Qualifiers: Altered mental status type: unspecified Qualified Code(s): R41.82 - Altered mental status, unspecified (5) Hyponatremia Current Visit: Yes Status: Acute Patient's most recent sodium level was 127. This has remained stable. On looking back in the patient's medical records it appears that it is not uncommon for her to have a sodium in the low 130s and chronically low.. Patient is currently fluid overloaded. We will continue to follow the patient' s sodium level. (6) TERRELL (acute kidney injury) Current Visit: Yes Status: Acute Acute kidney injury likely due to sepsis and hypotension throughout the disease process. Patient's GFR is currently 42. Baseline is greater than 60. We will continue to use a Levophed to increased blood pressure and improve renal perfusion. (7) Diabetes mellitus Current Visit: Yes Status: Chronic Patient's most recent glucose level was 172. Patient is currently on sliding scale insulin to manage her diabetes while in the hospital. Qualifiers: Diabetes mellitus type: type 2 Diabetes mellitus complication status: with hyperglycemia Diabetes mellitus retirement insulin use: without retirement use Qualified Code(s): E11.65 - Type 2 diabetes mellitus with hyperglycemia (8) Cirrhosis Current Visit: No Status: Chronic Patient has history of cirrhosis. We will continue her home medications of lactulose and rifaximin. CT showed moderate ascites due to the patient's platelets being 27 we will not do a paracentesis at this time. Qualifiers: Hepatic cirrhosis type: unspecified hepatic cirrhosis Ascites presence: with ascites Qualified Code(s): K74.60 - Unspecified cirrhosis of liver (9) Thrombocytopenia Current Visit: No Status: Chronic Patient's platelets are currently at 27. We will continue to hold heparin and monitored her labs. We will transfuse as needed. (10) Anemia Current Visit: No Status: Acute Patient's anemia has shown mild improvement. Her hemoglobin is 9.1. This anemia was likely due to the fluid resuscitation the patient we will continue to monitor the patient's hemoglobin with CBCs. Qualifiers: Anemia type: unspecified type Qualified Code(s): D64.9 - Anemia, unspecified (11) Coagulopathy Current Visit: Yes Status: Chronic Likely due to patient's cirrhosis. We will continue to monitor the patient's coags every 12 hours. (12) Decubital ulcer Current Visit: Yes Status: Acute Consulted wound care. We will position the patient with wedges and pillows to limit the pressure on the ulcers. We will alternate which side as well. Patient is currently on Zosyn and Cipro. Patient was moved to an XPERT bed to help reduce pressure on the decubitus. Qualifiers: Pressure ulcer location: contiguous region involving back and buttock Pressure ulcer stage: unspecified pressure ulcer stage Laterality: unspecified laterality Qualified Code(s): L89.40 - Pressure ulcer of contiguous site of back, buttock and hip, unspecified stage (13) Vulva cancer Current Visit: No Status: Chronic TREASURY REPRESENTATIVE came to see the patient yesterday to evaluate the vulvar cancer. Examination was deferred due to patient discomfort. They stated that the patient's vulvar cancer was noncontributory to the patient's current hospitalization. (14) DVT prophylaxis Current Visit: No Status: Acute SCDs have been ordered for the patient for prophylaxis. Heparin was not being given at this time due to the patient having very low platelets of 27 Subjective Principal diagnosis: Septic shock Interval history: Pre the nursing staff the patient did well overnight other than becoming slightly agitated and stacking breaths on the ventilator. Versed was given to calm the patient. The patient is still intubated and sedated. Further history is unobtainable from the patient due to her condition. Objective PUL Vital signs: Last Vital Signs Temp 97.6 F 07/04/17 04:00 Pulse 80 07/04/17 06:00 Resp 13 07/04/17 06:00 BP 111/67 07/04/17 06:00 Pulse Ox 91 07/04/17 06:00 General appearance: other (Patient is currently intubated and sedated) Eyes: nonicteric ENT: oropharynx dry, other (Intubated) Neck: supple, no lymphadenopathy, no JVD Effort: other (Currently on a ventilator) Auscultation: bilateral: rales Cardiovascular: regular rate and rhythm Gastrointestinal: normoactive bowel sounds, other (Distended) Integumentary: decubitus ulcer (On lower back and buttock, minimal bleeding), other (Diffuse ecchymosis of the upper extremities and shoulders.) Extremities: no cyanosis, pink and warm, edema (3+ pitting edema on bilateral lower extremities) Musculoskeletal: no deformities unable to assess due to mental status other (Unable to assess due to the patient being intubated and sedated) Ventilator Settings Ventilator Settings: Ventilator Settings, Last 8 Hours Ventilator Mode VC+ Ventilator Mode VC+ Ventilator Mode VC+ Ventilator Mode VC+ Ventilator Tidal Volume 450 Setting Ventilator Tidal Volume 450 Setting Ventilator Tidal Volume 450 Setting Ventilator Tidal Volume 450 Setting Ventilator Respiratory Rate 12 Setting Ventilator Respiratory Rate 12 Setting Ventilator Respiratory Rate 12 Setting Ventilator Respiratory Rate 12 Setting Actual Respiratory Rate 13 Actual Respiratory Rate 12 Actual Respiratory Rate 16 Positive End Expiratory 5 Pressure Positive End Expiratory 5 Pressure Positive End Expiratory 5 Pressure Positive End Expiratory 5 Pressure Peak Inspiratory Airway 13 Pressure Peak Inspiratory Airway 12 Pressure Peak Inspiratory Airway 12 Pressure Results - Laboratory Findings CBC and BMP: 07/04/17 06:00 07/04/17 00:40 ABG ABG pH 7.33 pH Units (7.32-7.45) 07/04/17 06:20 ABG pCO2 37 mmHg (35-45) 07/04/17 06:20 ABG pO2 61 mmHg (85-104) L 07/04/17 06:20 ABG O2 Saturation 89 % (95-98) L 07/04/17 06:20 PT/INR, D-dimer PT 38.1 Seconds (9.4-12.1) H 07/04/17 00:40 Abnormal lab findings: Abnormal lab results RBC 2.83 M/mcL (3.82-4.97) L 07/04/17 06:00 Hgb 9.1 g/dL (11.5-15.4) L 07/04/17 06:00 Hct 27.7 % (35.3-44.9) L 07/04/17 06:00 RDW 17.0 % (11.5-14.5) H 07/04/17 06:00 Plt Count 27 K/mcL (140-400) L* 07/04/17 06:00 Lymphocytes # 0.2 K/mcL (0.6-4.6) L 07/04/17 06:00 Toxic Granulation Present (Not Present) A 07/03/17 09:07 Platelet Estimate Marked Decrease (Normal) L 07/04/17 06:00 Poikilocytosis 1+ (Not Present) A 07/04/17 06:00 Anisocytosis 1+ (Not Present) A 07/04/17 06:00 Emerita Cells 1+ (Not Present) A 07/04/17 06:00 PT 38.1 Seconds (9.4-12.1) H 07/04/17 00:40 APTT 64.8 Seconds (26.0-36.0) H 07/04/17 00:40 ABG pO2 61 mmHg (85-104) L 07/04/17 06:20 ABG HCO3 19.5 mEQ/L (21-27) L 07/04/17 06:20 ABG O2 Saturation 89 % (95-98) L 07/04/17 06:20 ABG Base Excess -5.9 mEq/L (-2.0 to 3.0) L 07/04/17 06:20 Sodium 127 mEq/L (136-145) L 07/04/17 00:40 Carbon Dioxide 18 mEq/L (19-29) L 07/04/17 00:40 BUN 33 mg/dL (7-20) H 07/04/17 00:40 Creatinine 1.30 mg/dL (0.57-1.11) H 07/04/17 00:40 Est GFR ( Amer) 51 (> 60) L 07/04/17 00:40 Est GFR (Non-Af Amer) 42 (> 60) L 07/04/17 00:40 Glucose 172 mg/dL (70-99) H 07/04/17 00:40 POC Glucose 166 (58-89) H 07/04/17 06:40 Calculated Osmolality 275 (280-300) L 07/04/17 00:40 Calcium 8.3 mg/dL (8.6-10.8) L 07/04/17 00:40 Ionized Calcium 1.07 mmol/L (1.15-1.35) L 07/03/17 00:28 Total Bilirubin 5.1 mg/dL (0.2-1.2) H 07/02/17 17:16 Direct Bilirubin 2.7 mg/dL (0.0-0.5) H 07/02/17 17:16 Indirect Bilirubin 2.4 mg/dL (0.0-1.2) H 07/02/17 17:16 AST 49 Units/L (5-34) H 07/02/17 17:16 ALT 57 Units/L (0-55) H 07/02/17 17:16 Alkaline Phosphatase 197 Units/L (38-126) H 07/02/17 17:16 Albumin 1.6 g/dL (3.5-5.0) L 07/02/17 17:16 Globulin 4.7 g/dL (2.4-3.5) H 07/02/17 17:16 Albumin/Globulin Ratio 0.3 (1.1-2.2) L 07/02/17 17:16 Ur Specimen Adequacy See below A 07/02/17 16:45 Urine Clarity Turbid (Clear) A 07/02/17 16:45 Urine Protein 30 mg/dL (Neg-Trace) H 07/02/17 16:45 Urine Ketones Trace mg/dL (Negative) H 07/02/17 16:45 Urine Blood Large (Negative) H 07/02/17 16:45 Urine Nitrite Positive (Negative) A 07/02/17 16:45 Urine Bilirubin Moderate (Negative) H 07/02/17 16:45 Ur Leukocyte Esterase Large (Negative) H 07/02/17 16:45 Urine Microscopic WBC TNTC per hpf (0-3) H 07/02/17 16:45 Ur Squamous Epith Cells Many per lpf (None-Few) H 07/02/17 16:45 Urine Yeast Many per hpf (None Seen) H 07/02/17 16:45 Ur Culture Indicated? YES (NO) A 07/02/17 16:45 Enterobacteriac sp PCR DETECTED (Not Detect) A 07/02/17 17:16 E. cloacae complex PCR DETECTED (Not Detect) A 07/02/17 17:16 - Diagnostic Findings Chest x-ray: report reviewed, image reviewed - Clinical Findings Intake & Output: Intake & Output 07/03/17 07/03/17 07/04/17 15:59 23:59 07:59 Intake Total 1500 / 1500 1633 / 1633 466 / 466 Output Total 150 / 150 225 / 225 75 / 75 Balance 1350 / 1350 1408 / 1408 391 / 391 Consult Discharge Plan - Plan Referrals: NONE,PCP [Primary Care Provider] - <Digna Forte - Last Filed: 07/04/17 21:06> Date of Encounter: 07/04/17 Objective PUL Vital signs: Last Vital Signs Temp 98.7 F 07/04/17 16:14 Pulse 89 07/04/17 16:00 Resp 16 07/04/17 16:26 BP 83/41 07/04/17 16:00 Pulse Ox 92 07/04/17 16:26 Ventilator Settings Ventilator Settings: Ventilator Settings, Last 8 Hours Ventilator Mode VC+ Ventilator Mode VC+ Ventilator Mode VC+ Ventilator Mode VC+ Ventilator Mode VC+ Ventilator Mode VC+ Ventilator Mode VC+ Ventilator Mode VC+ Ventilator Mode VC+ Ventilator Mode VC+ Ventilator Mode VC+ Ventilator Tidal Volume 450 Setting Ventilator Tidal Volume 450 Setting Ventilator Tidal Volume 450 Setting Ventilator Tidal Volume 450 Setting Ventilator Tidal Volume 450 Setting Ventilator Tidal Volume 450 Setting Ventilator Tidal Volume 450 Setting Ventilator Tidal Volume 450 Setting Ventilator Tidal Volume 450 Setting Ventilator Tidal Volume 450 Setting Ventilator Tidal Volume 450 Setting Ventilator Respiratory Rate 12 Setting Ventilator Respiratory Rate 12 Setting Ventilator Respiratory Rate 12 Setting Ventilator Respiratory Rate 12 Setting Ventilator Respiratory Rate 12 Setting Ventilator Respiratory Rate 12 Setting Ventilator Respiratory Rate 12 Setting Ventilator Respiratory Rate 12 Setting Ventilator Respiratory Rate 12 Setting Ventilator Respiratory Rate 12 Setting Ventilator Respiratory Rate 12 Setting Actual Respiratory Rate 16 Actual Respiratory Rate 16 Actual Respiratory Rate 14 Actual Respiratory Rate 14 Actual Respiratory Rate 15 Actual Respiratory Rate 14 Actual Respiratory Rate 14 Actual Respiratory Rate 15 Actual Respiratory Rate 14 Actual Respiratory Rate 14 Actual Respiratory Rate 14 Positive End Expiratory 5 Pressure Positive End Expiratory 5 Pressure Positive End Expiratory 5 Pressure Positive End Expiratory 5 Pressure Positive End Expiratory 5 Pressure Positive End Expiratory 5 Pressure Positive End Expiratory 5 Pressure Positive End Expiratory 5 Pressure Positive End Expiratory 5 Pressure Positive End Expiratory 5 Pressure Positive End Expiratory 5 Pressure Peak Inspiratory Airway 14 Pressure Peak Inspiratory Airway 14 Pressure Peak Inspiratory Airway 15 Pressure Peak Inspiratory Airway 15 Pressure Peak Inspiratory Airway 13 Pressure Peak Inspiratory Airway 15 Pressure Peak Inspiratory Airway 15 Pressure Peak Inspiratory Airway 13 Pressure Peak Inspiratory Airway 12 Pressure Peak Inspiratory Airway 12 Pressure Peak Inspiratory Airway 15 Pressure Results - Laboratory Findings CBC and BMP: 07/04/17 16:28 07/04/17 16:28 ABG ABG pH 7.33 pH Units (7.32-7.45) 07/04/17 06:20 ABG pCO2 37 mmHg (35-45) 07/04/17 06:20 ABG pO2 61 mmHg (85-104) L 07/04/17 06:20 ABG O2 Saturation 89 % (95-98) L 07/04/17 06:20 PT/INR, D-dimer PT 34.1 Seconds (9.4-12.1) H 07/04/17 16:28 Abnormal lab findings: Abnormal lab results RBC 2.80 M/mcL (3.82-4.97) L 07/04/17 16:28 Hgb 9.0 g/dL (11.5-15.4) L 07/04/17 16:28 Hct 27.5 % (35.3-44.9) L 07/04/17 16:28 RDW 16.8 % (11.5-14.5) H 07/04/17 16:28 Plt Count 27 K/mcL (140-400) L* 07/04/17 16:28 Lymphocytes # 0.2 K/mcL (0.6-4.6) L 07/04/17 06:00 Toxic Granulation Present (Not Present) A 07/03/17 09:07 Platelet Estimate Marked Decrease (Normal) L 07/04/17 06:00 Poikilocytosis 1+ (Not Present) A 07/04/17 06:00 Anisocytosis 1+ (Not Present) A 07/04/17 06:00 Emerita Cells 1+ (Not Present) A 07/04/17 06:00 PT 34.1 Seconds (9.4-12.1) H 07/04/17 16:28 APTT 61.2 Seconds (26.0-36.0) H 07/04/17 16:28 ABG pO2 61 mmHg (85-104) L 07/04/17 06:20 ABG HCO3 19.5 mEQ/L (21-27) L 07/04/17 06:20 ABG O2 Saturation 89 % (95-98) L 07/04/17 06:20 ABG Base Excess -5.9 mEq/L (-2.0 to 3.0) L 07/04/17 06:20 Sodium 126 mEq/L (136-145) L 07/04/17 16:28 BUN 36 mg/dL (7-20) H 07/04/17 16:28 Creatinine 1.33 mg/dL (0.57-1.11) H 07/04/17 16:28 Est GFR ( Amer) 49 (> 60) L 07/04/17 16:28 Est GFR (Non-Af Amer) 41 (> 60) L 07/04/17 16:28 BUN/Creatinine Ratio 27 (6-26) H 07/04/17 16:28 Glucose 131 mg/dL (70-99) H 07/04/17 16:28 POC Glucose 152 (58-89) H 07/04/17 11:23 Calculated Osmolality 272 (280-300) L 07/04/17 16:28 Lactic Acid 2.5 mmol/L (0.5-2.2) H 07/04/17 16:28 Calcium 8.4 mg/dL (8.6-10.8) L 07/04/17 16:28 Ionized Calcium 1.07 mmol/L (1.15-1.35) L 07/03/17 00:28 Total Bilirubin 5.4 mg/dL (0.2-1.2) H 07/04/17 08:53 Direct Bilirubin 2.4 mg/dL (0.0-0.5) H 07/04/17 08:53 Indirect Bilirubin 3.0 mg/dL (0.0-1.2) H 07/04/17 08:53 AST 42 Units/L (5-34) H 07/04/17 08:53 Serum Total Protein 5.6 g/dL (6.0-8.3) L 07/04/17 08:53 Albumin 2.8 g/dL (3.5-5.0) L D 07/04/17 08:53 Albumin/Globulin Ratio 1.0 (1.1-2.2) L 07/04/17 08:53 Ur Specimen Adequacy See below A 07/02/17 16:45 Urine Clarity Turbid (Clear) A 07/02/17 16:45 Urine Protein 30 mg/dL (Neg-Trace) H 07/02/17 16:45 Urine Ketones Trace mg/dL (Negative) H 07/02/17 16:45 Urine Blood Large (Negative) H 07/02/17 16:45 Urine Nitrite Positive (Negative) A 07/02/17 16:45 Urine Bilirubin Moderate (Negative) H 07/02/17 16:45 Ur Leukocyte Esterase Large (Negative) H 07/02/17 16:45 Urine Microscopic WBC TNTC per hpf (0-3) H 07/02/17 16:45 Ur Squamous Epith Cells Many per lpf (None-Few) H 07/02/17 16:45 Urine Yeast Many per hpf (None Seen) H 07/02/17 16:45 Ur Culture Indicated? YES (NO) A 07/02/17 16:45 Enterobacteriac sp PCR DETECTED (Not Detect) A 07/02/17 17:16 E. cloacae complex PCR DETECTED (Not Detect) A 07/02/17 17:16 - Clinical Findings Intake & Output: Intake & Output 07/04/17 07/04/17 07/04/17 07:59 15:59 23:59 Intake Total 566 / 566 539 / 539 Output Total 225 / 225 100 / 100 Balance 341 / 341 439 / 439 - Attending Attestation I examined this patient and my medical decision-making was reviewed with the Resident Physician. I agree with the documented findings, disposition and treatment plan as described except to the extent set forth below. Patient seen and examined. Labs, radiology, chart personally reviewed. Agree with resident's history and physical, assessment, plan with following comments: JOB [employer]EM[employer]: Patient remain on sedative for vent synchrony and agitation. Will try to limit Versed use. Pulmonary: Acceptable oxygenation is more problematic and evidence of pulmonary edema. Patient with poor nutrition and liver disease, which easily third spacing. Cardiovascular: unstable and remain in shock. GI: Nutrition per dietary and GI prophylaxis per routine, however due to severe thrombocytopnia and even possible of esophageal varices will avoid any OG/NG placement. Heme: DVT prophylaxis per routine. If start to bleed, will need transfuse platelets. ID: Continue antibiotics and plan to de-escalation Renal; urine out put and renal funtion reviewed, will consult nephrology and may need Ellen. Endorcine: blood glucose is monitored Lines: all lines checked and no evidence of infections Skin: skin care to prevent pressure ulcers per nursing routine care Palliative care consulted and patient has expressed to remain full code in the past. I spent 35 min of Critical Care time with this patient. It involved decision making of high complexity to assess, manipulate, and support vital organ system failure and/or to prevent further life threatening deterioration of the patient' s condition. The time involved in the performance of separately reportable procedures was not counted toward critical care time.
[2017-07-04] MEDS: Pantoprazole 40 MG VIAL IVPB SCH (08:07)
[2017-07-04] MEDS: Chlorhexidine Rinse 15 ML MOUTHWASH MM SCH ×2 (08:07→20:25)
[2017-07-04] MEDS: Piperacillin/Tazobactam 3.375 GM in D5% in Water (Mini-Bag+) 100 ML IVPB SCH ×3 (08:07→23:58)
[2017-07-04] MEDS: Lactulose Oral Soln 20 GM/30 ML UDC PO SCH ×2 (08:10→20:22)
--- NOTE | 2017-07-04 08:42 | Venous Imaging Report ---
LE Venous Duplex Patient Name:Michelle Horner Order Number:[id number] Procedure Date:07/03/2017 Date:1955ge:61 yrs Gender:Female Location:[facility] Room #: IC05 Physician Aide:Mira Wharton RDCS Referring MD:Valentina Jamison CNP vocational auto body instructor:None Reading MD:Christiano Ozuna MD , FACS Primary Indications:Swelling of limb Secondary Indications: Impressions: Bilateral lower extremity: normal superficial and deep exam. Recommendations: Preliminary given to pt RNMartinez. Findings Venous Duplex Results: Right: Venous imaging of the lower extremity reveals full patency and normal vessel compressibility of the right distal iliac, right common femoral, right superficial femoral, right popliteal, right posterior tibial, right peroneal, right great saphenous and right lesser saphenous. Doppler signals in the evaluated veins were normal. The right popliteal, right peroneal and right lesser saphenous veins were not well visualized. Left: Venous imaging of the lower extremity reveals full patency and normal vessel compressibility of the left distal iliac, left common femoral, left superficial femoral, left popliteal, left posterior tibial, left peroneal, left great saphenous and left lesser saphenous. Doppler signals in the evaluated veins were normal. The left superficial femoral and left peroneal veins were not well visualized. Lower Extremity Venous Duplex Side Vein Compress Spontaneous Flow Augment Diameter (cm) Depth (cm) Right Distal Iliac Normal Yes Phasic Yes Right Common Femoral Normal Yes Phasic Yes Right Superficial Femoral Normal Yes Phasic Yes Right Popliteal Normal Yes Phasic Yes Right Posterior Tibial Normal Yes Phasic Yes Right Peroneal Normal Yes Phasic Yes Right Great Saphenous Normal Yes Phasic Yes Right Lesser Saphenous Normal Yes Phasic Yes Left Distal Iliac Normal Yes Phasic Yes Left Common Femoral Normal Yes Phasic Yes Left Superficial Femoral Normal Yes Phasic Yes Left Popliteal Normal Yes Phasic Yes Left Posterior Tibial Normal Yes Phasic Yes Left Peroneal Normal Yes Phasic Yes Left Great Saphenous Normal Yes Phasic Yes Left Lesser Saphenous Normal Yes Phasic Yes Updated by Christiano Ozuna MD, FACS on 07/04/2017 8:33:59 AM Christiano Ozuna MD electronically signed on 07/04/2017 8:34:18 AM with status of Final
[2017-07-04 09:16] LABS: Bilirubin,Direct 2.4 mg/dL (0.0-0.5); Bilirubin,Total 5.4 mg/dL (0.2-1.2); Globulin 2.8 g/dL (2.4-3.5); Total Protein 5.6 g/dL (6.0-8.3)
[2017-07-04 09:17] LABS: Albumin 2.8 g/dL (3.5-5.0)
--- NOTE | 2017-07-04 10:47 | Palliative - Consult Note ---
Date of Encounter: 07/04/17 Time of Encounter: 10:40 - Assessment and Plan (1) Counseling regarding advanced care planning and goals of care Current Visit: Yes Status: Acute Assessment and plan: Patient has advanced directives noted on our medical record here that were completed last year. POA is very specific, with patient writing out that she wants full resuscitation and stated specifics that after 2 months on life support, her POA could make the decision to withdraw life support and stop nutrition and hydration. On our copy, there is more that she had wrote, however , it was scanned in incorrectly and I did get in touch with the alternate POA regarding this. Son Leonid stated that he would get ahold of primary POA Jon and have him bring in. With the specifics of her advanced directives regarding her wishes, I do not feel that we will have much to offer this patients case. Please call if needed. (2) Cirrhosis Current Visit: No Status: Chronic Qualifiers: Hepatic cirrhosis type: unspecified hepatic cirrhosis Ascites presence: without ascites Qualified Code(s): K74.60 - Unspecified cirrhosis of liver (3) Severe sepsis Current Visit: Yes Status: Acute Assessment and plan: Currently on IV antibiotic therapy, fluids, and pressor support. Palliative-CN HPI - Data of Consult Consult date: 07/04/17 Requesting Physician: Trent Hobbs MD Primary Care Provider: PCP NONE - Consult Narrative History of present illness: Ms. Horner is a 61 year old female with pertinent medical history of CHF, hypertension, ARTEAGA cirrhosis, COPD, vulvar cancer, SLE, who was brought to hospital with changes in mental status. By reports, she was found in poor living conditions and home and APS referral was recommended. She was intubated , and is currently in the ICU. She is sedated and receiving treatment for severe sepsis. H/o of vulvar cancer and has been seen at [facility]. CC: Trent Hobbs MD Past Med Surg Social Fam HX - Past Medical History Medical history: other (diverticulosis) Psychiatric history: anxiety, depression - Past Surgical History Surgical History: appendectomy, , cholecystectomy, other - Social History Smoking Status: Former smoker Smokeless Tobacco Status: No Alcohol use: none Drug use: none - Family History Brother Hx Family Cardiac Disorders: Yes Hx Family Cancer: Yes Mother Hx Family Cardiac Disorders: Yes (cabg, HTN) Hx Family Endocrine Disorder: Yes (diabetes) Hx Family Neurologic Disorders: Yes (alzheimers) Medications and Allergies Duloxetine HCl [Cymbalta] 60 mg PO QAM 07/08/15 [History] Budesonide/Formoterol 160/4.5 [Symbicort 160/4.5] 2 puff IH BID 07/11/15 [ History] Cyanocobalamin (B-12) [Vitamin B12] 1,000 mcg IM QMONTH 03/24/16 [History] Methylphenidate HCl [Concerta] 36 mg PO QAM 03/24/16 [History] Prochlorperazine Maleate [Compazine] 10 mg PO DAILY PRN 03/24/16 [History] Albuterol Sulfate [Proventil Hfa] 2 puff IH Q4H PRN 10/24/16 [History] DULoxetine [Cymbalta] 30 mg PO HS 10/24/16 [History] Ergocalciferol (VITAMIN D2) [Vitamin D2] 50,000 unit PO TH 10/24/16 [History] Furosemide [Lasix] 20 mg PO DAILY 10/24/16 [History] Methylphenidate HCl [Concerta] 27 mg PO QPM 10/24/16 [History] Pantoprazole Sodium [Protonix] 40 mg PO BID 10/24/16 [History] Saline Nasal [place] [[place] Nasal [place]] 1 spray NS QID PRN 10/24/16 [History] Multivit-Min/Iron Fum/Folic AC [Znypq-Jorkyrt-Epefygeu Tablet] 1 tab PO DAILY [History] Spironolactone [Aldactone] 75 mg PO QAM 01/31/17 [History] Ammonium Lactate [Chikis-Hydrolac] 1 appl TP BID 07/02/17 [History] Gabapentin [Neurontin] 200 mg PO TID 07/02/17 [History] Hydroxychloroquine [Plaquenuil] 200 mg PO BID 07/02/17 [History] Lactulose 20 gm PO BID 07/02/17 [History] Liraglutide [Victoza 2-Kee] 1.8 mg SQ DAILY 07/02/17 [History] Medroxyprogesterone Acetate [Provera] 10 mg PO DAILY 07/02/17 [History] Metformin HCl [Metformin HCl ER] 500 mg PO QPM 07/02/17 [History] Polyethylene Glycol 3350 [MiraLAX] 17 gm PO DAILY 07/02/17 [History] Rifaximin [Xifaxan] 550 mg PO BID 07/02/17 [History] Tramadol HCl [Ultram] 50 mg PO BID 07/02/17 [History] Allergies codeine Allergy (Mild, Verified 07/02/17 16:50) Hives montelukast [From Singulair] Allergy (Mild, Verified 07/02/17 16:50) Hives adhesive tape Allergy (Verified 07/02/17 16:50) Hives ROS unobtainable: due to endotracheal tube Palliative Care-Exam - Constitutional Vitals: Temp Pulse Resp BP Pulse Ox 97.6 F 85 14 90/48 89 07/04/17 10:00 07/04/17 10:00 07/04/17 10:00 07/04/17 10:00 07/04/17 10:00 General appearance: Present: no acute distress - Head Head Exam: Present: normal inspection, normocephalic - Respiratory Respiratory exam: Present: CTAB Additional comments: Breath sounds coarse throughout. PEEP 5, FIO2 50%. - Cardiovascular Cardiovascular exam: Present: +S1, +S2 - GI/Abdominal Exam GI/Abdominal exam: Present: distended, soft - Extremities Exam Additional comments: Ecchymotic areas of bruising to upper extremities, right shoulder - Neurological Exam Additional comments: Sedated on vent - Skin Skin exam: Present: dry, pallor, warm Internal Medicine - CN: Reslt - Labs CBC & Chem 7: 07/04/17 06:00 07/04/17 00:40 Labs: Short CBC 07/03/17 07/04/17 07/04/17 Range/Units 16:55 00:40 06:00 WBC 8.0 6.3 6.6 (4.3-11.1) K/mcL Hgb 8.5 L 8.6 L 9.1 L (11.5-15.4) g/dL Hct 25.7 L 26.1 L 27.7 L (35.3-44.9) % Plt Count 34 L 28 L* 27 L* (140-400) K/mcL Neutrophils # 7.0 5.5 5.8 (1.6-8.9) K/mcL BMP 07/03/17 07/04/17 16:55 00:40 Sodium 127 L 127 L Potassium 4.1 4.0 Chloride 100 100 Carbon Dioxide 19 18 L BUN 33 H 33 H Creatinine 1.27 H 1.30 H Glucose 178 H 172 H Calcium 8.5 L 8.3 L Liver Function 07/04/17 Range/Units 08:53 Total Bilirubin 5.4 H (0.2-1.2) mg/dL Direct Bilirubin 2.4 H (0.0-0.5) mg/dL AST 42 H (5-34) Units/L ALT 35 (0-55) Units/L Alkaline Phosphatase 104 (38-126) Units/L Albumin 2.8 L D (3.5-5.0) g/dL - ABG Interpretation ABG results: ABG ABG pH 7.33 pH Units (7.32-7.45) 07/04/17 06:20 ABG pCO2 37 mmHg (35-45) 07/04/17 06:20 ABG pO2 61 mmHg (85-104) L 07/04/17 06:20 ABG O2 Saturation 89 % (95-98) L 07/04/17 06:20 PT/INR, D-dimer PT 38.1 Seconds (9.4-12.1) H 07/04/17 00:40 - Impressions Impressions Chest X-Ray 07/03/17 10:52 IMPRESSION: Tip of the ET tube is 14 mm proximal to the juan carlos. Pulmonary vascular congestion and patchy airspace disease in both lung aragon. D/ / 07/03/2017 11:09:21 Anmol Melendez MD / akash Interpreting Provider: Anmol Melendez MD Chest X-Ray 07/04/17 05:41 IMPRESSION: 1. Endotracheal tube tip terminates at the juan carlos. Recommend retraction by at least 2 cm. 2. Interval worsening of ground-glass and reticular opacities throughout the lungs which may represent infection and/or edema. D/ / 07/04/2017 07:56:21 Kasey Savage MD / alan Interpreting Provider: Kasey Savage MD Consult Discharge Plan - Plan Referrals: NONE,PCP [Primary Care Provider] - Palliative Quality Palliative Quality: Screen for Code Status: NA, Screen for Goals of Care: NA, Screen for Pain: NA, If Pain Regimen Started, Initiate Bowel Regimen: NA, Screen for Nausea/Vomitting: NA Code Status: 07/02/17 20:11 Resuscitation Status: Active [RES] Routine Comment: Resuscitation Status: Full Code
[2017-07-04 16:38] LABS: Mean Corpuscular Volume 98.2 fL (83.0-100.0)
[2017-07-04 16:40] LABS: Hematocrit 27.5 % (35.3-44.9); Immature Platelets 5.4 % (1.1-6.1); Mean Corpuscular HGB Conc 32.7 g/dL (31.6-35.5); Mean Corpuscular Hemoglobin 32.1 pg (28.0-33.3); Red Cell Distribution Width 16.8 % (11.5-14.5)
[2017-07-04 16:44] LABS: INR 3.1; Prothrombin Time 34.1 Seconds (9.4-12.1)
[2017-07-04 16:45] LABS: Platelet Count 27 K/mcL (140-400)
[2017-07-04 16:47] LABS: Activated Partial Thrombo Time 61.2 Seconds (26.0-36.0)
[2017-07-04 16:50] LABS: Calcium 8.4 mg/dL (8.6-10.8); Potassium 4.3 mEq/L (3.5-4.5)
[2017-07-04] MEDS ORDERED: Furosemide 40 MG/4 ML VIAL IVP ONE (17:01)
[2017-07-04 17:06] LABS: Lymphocytes # 0.6 K/mcL (0.6-4.6); Monocytes # 0.2 K/mcL (0.0-1.3); Neutrophils # 6.8 K/mcL (1.6-8.9); Platelet Estimate Marked Decrease (Normal)
--- NOTE | 2017-07-04 17:36 | Nephrology Consult Note ---
Date of Encounter: 07/04/17 Time of Encounter: 17:10 Assessment and Plan (1) TERRELL (acute kidney injury) Current Visit: Yes Status: Acute TERRELL in the setting of septic shock and anasarca with known probable decompensated cirrhosis of the liver with associated severe thrombocytopenia. She has developed worsening volume status, and at about 5pm, Nephrology was consulted for evaluation. I recommend starting loop diuretics with an initial dose of either lasix 40mg IV x1 or 80mg IV x1 and assess her UOP response. Since she has a hx of cirrhosis, the ddx for the TERRELL could involve HRS. Agree with checking Anne. She has hyponatremia, which surely is a hypervolemic hyponatremia and from her known cirrhosis. Diuretics are indicated. Non-anion gap Metabolic acidosis, but this is not as pronounced as when she was first admitted Sepsis: as per primary Start with diuretics tonight but if her anasarac were to prove medically refractory to diuretics, then CVVHDF may be an option. If she needed a dialysis catheter, she would need platelets to be transfused. Continue to follow a renal protective strategy: avoid NSAIDs, Bactrim, Contrast and other nephrotoxins. I spent about 30min involved in CCT for assessment, evaluation, history review, documentation and discussing my plan with the ORAL HYGIENIST. Thank you for consulting the [facility] team. I am available / on- call tonight, and at 8am tomorrow my colleague Dr. Chacon will be on-call. (2) Hyponatremia Current Visit: Yes Status: Acute See above (3) Metabolic acidosis Current Visit: Yes Status: Acute See above (4) Septic shock Current Visit: Yes Status: Acute See above (5) Cirrhosis of liver with ascites Current Visit: Yes Status: Chronic See above Qualifiers: Hepatic cirrhosis type: unspecified hepatic cirrhosis Qualified Code(s): K74.60 - Unspecified cirrhosis of liver (6) Anemia Current Visit: No Status: Acute Will monitor Qualifiers: Anemia type: unspecified type Qualified Code(s): D64.9 - Anemia, unspecified (7) Thrombocytopenia Current Visit: No Status: Chronic See above History of Present Illness - Reason for Consult Consult date: 07/04/17 Acute Kidney Injury, hyponatremia Requesting physician: Digna Forte - Chief Complaint Edema, TERRELL and Hyponatremia - History of Present Illness Michelle Horner is a 61 y/o morbidly obese WF with a pmh of of vulvar CA followed by [facility]/Onc, cirrhosis of the liver with chronic thrombocytopenia, frequent UTIs and et al who presented a few days ago with UTI, sepsis, acute respiratory failure and worsening edema. Nephrology was consulted at about 5pm for edema and TERRELL. I reviewed her medical records available to me in both [facility] and [facility] and so no charts suggestive of any prior nephrology care. She does not appear to be taking NSAIDs chronically at home. She is presently intubated, sedated and there was no family present. The ICU physician team had gone home for the day. Thus the subjective/HPI history is limited. She has not received any lasix yet. She was getting Spironolactone. Unclear if she has any family history of ESRD or CKD. Past Med Surg Social Fam HX - Past Medical History Medical history: other (diverticulosis) Psychiatric history: anxiety, depression - Past Surgical History Surgical History: appendectomy, , cholecystectomy, other - Social History Smoking Status: Former smoker Smokeless Tobacco Status: No Alcohol use: none Drug use: none - Family History Brother Hx Family Cardiac Disorders: Yes Hx Family Cancer: Yes Mother Hx Family Cardiac Disorders: Yes (cabg, HTN) Hx Family Endocrine Disorder: Yes (diabetes) Hx Family Neurologic Disorders: Yes (alzheimers) Medications and Allergies Duloxetine HCl [Cymbalta] 60 mg PO QAM 07/08/15 [History] Budesonide/Formoterol 160/4.5 [Symbicort 160/4.5] 2 puff IH BID 07/11/15 [ History] Cyanocobalamin (B-12) [Vitamin B12] 1,000 mcg IM QMONTH 03/24/16 [History] Methylphenidate HCl [Concerta] 36 mg PO QAM 03/24/16 [History] Prochlorperazine Maleate [Compazine] 10 mg PO DAILY PRN 03/24/16 [History] Albuterol Sulfate [Proventil Hfa] 2 puff IH Q4H PRN 10/24/16 [History] DULoxetine [Cymbalta] 30 mg PO HS 10/24/16 [History] Ergocalciferol (VITAMIN D2) [Vitamin D2] 50,000 unit PO TH 10/24/16 [History] Furosemide [Lasix] 20 mg PO DAILY 10/24/16 [History] Methylphenidate HCl [Concerta] 27 mg PO QPM 10/24/16 [History] Pantoprazole Sodium [Protonix] 40 mg PO BID 10/24/16 [History] Saline Nasal [employer] [[place] Nasal [employer]] 1 spray NS QID PRN 10/24/16 [History] Multivit-Min/Iron Fum/Folic AC [Ansmh-Xffnwiu-Hhskpmfd Tablet] 1 tab PO DAILY [History] Spironolactone [Aldactone] 75 mg PO QAM 01/31/17 [History] Ammonium Lactate [Chikis-Hydrolac] 1 appl TP BID 07/02/17 [History] Gabapentin [Neurontin] 200 mg PO TID 07/02/17 [History] Hydroxychloroquine [Plaquenuil] 200 mg PO BID 07/02/17 [History] Lactulose 20 gm PO BID 07/02/17 [History] Liraglutide [Victoza 2-Kee] 1.8 mg SQ DAILY 07/02/17 [History] Medroxyprogesterone Acetate [Provera] 10 mg PO DAILY 07/02/17 [History] Metformin HCl [Metformin HCl ER] 500 mg PO QPM 07/02/17 [History] Polyethylene Glycol 3350 [MiraLAX] 17 gm PO DAILY 07/02/17 [History] Rifaximin [Xifaxan] 550 mg PO BID 07/02/17 [History] Tramadol HCl [Ultram] 50 mg PO BID 07/02/17 [History] Allergies codeine Allergy (Mild, Verified 07/02/17 16:50) [facility] Allergy (Mild, Verified 07/02/17 16:50) Hives adhesive tape Allergy (Verified 07/02/17 16:50) Hives Review of Systems ROS unobtainable: due to endotracheal tube Exam - Vital Signs Vital signs: Initial Vital Signs Temp Pulse Resp BP Pulse Ox 99.7 F H 132 20 82/58 96 07/02/17 16:08 07/02/17 16:08 07/02/17 16:08 07/02/17 16:08 07/02/17 16:08 Vital Signs - Last 8 Hours Temp Pulse Resp BP Pulse Ox 07/04/17 17:00 104 16 85/51 90 07/04/17 16:26 16 92 07/04/17 16:14 98.7 F 07/04/17 16:00 89 16 83/41 92 07/04/17 15:00 98 14 89/50 93 07/04/17 14:00 97 14 90/51 93 07/04/17 13:47 15 95 07/04/17 13:00 98 14 85/49 89 07/04/17 12:00 96.7 F L 98 14 90/48 89 07/04/17 11:20 15 90 07/04/17 11:00 96.7 F L 96 14 110/51 89 07/04/17 10:00 97.6 F 85 14 90/48 89 Intake and Output 07/04/17 07/04/17 07/04/17 07:59 15:59 23:59 Intake Total 566 / 566 539 / 539 Output Total 225 / 225 100 / 100 Balance 341 / 341 439 / 439 Intake: IV Fluids 566 / 566 539 / 539 PRECEDEX 400 mcg In 100 75 / 75 100 / 100 ml @ 0.2 MCG/KG/HR 5.634 mls/hr IVC .[id number] VARSHA Rx#:[id number] FentaNYL (PF) 1,000 MCG 180 / 180 In 0.9 % Sodium Chloride 80 ML @ 50 MCG/HR 5 mls/ hr IVC CONT VARSHA Rx#: [id number] Versed 50 MG In 0.9 % 39 / 39 Sodium Chloride 90 ML @ 1 MG/HR 2 mls/hr IVC CONT VARSHA Rx#:[id number] Cipro Premix 400 MG/200 200 / 200 200 / 200 ML 400 mg In 200 ml @ 200 mls/hr IVPB Q8H VARSHA Rx#: [id number] AquaMephyton 5 MG In 0.9 100 / 100 % Sodium Chloride 50 ML @ 100 mls/hr IVPB DAILY VARSHA Rx#:[id number] Zosyn 3.375 GM In 100 / 100 100 / 100 Dextrose 5% (Minibag+) 100 ML 100 ML @ 25 mls/hr IVPB Q8HR VARSHA Rx#: [id number] Output: Catheter 225 / 225 100 / 100 Other: Blood Glucose* 166 152 142 - General Appearance General appearance: obese, chronically ill, sedated on ventilator, intubated EENT: mucous membranes moist Additional Comments: Intubated, no obvious JVD but thick neck limiting evaluation Neck: supple Respiratory: course breath sounds Cardiology: edema (3-4+ pitting edema, essentially anasarca bilaterally), normal S1, normal S2 Gastrointestinal: no tenderness, no guarding, obese Integumentary: warm and dry Neurologic: no asterixis Musculoskeletal: no cyanosis, no clubbing Results - Lab Results 07/04/17 16:28 07/04/17 16:28 Most recent lab results ABG pH 7.33 pH Units (7.32-7.45) 07/04/17 06:20 ABG pCO2 37 mmHg (35-45) 07/04/17 06:20 ABG pO2 61 mmHg (85-104) L 07/04/17 06:20 ABG HCO3 19.5 mEQ/L (21-27) L 07/04/17 06:20 ABG O2 Saturation 89 % (95-98) L 07/04/17 06:20 Calcium 8.4 mg/dL (8.6-10.8) L 07/04/17 16:28 Phosphorus 2.8 mg/dL (2.3-4.7) 07/03/17 08:12 Magnesium 1.7 mg/dL (1.6-2.6) 07/03/17 08:12 I reviewed the progress notes, labs, meds, vitals with I/Os and imaging. Consult Discharge Plan - Plan Referrals: NONE,PCP [Primary Care Provider] -
[2017-07-04] MEDS: Norepinephrine 4 MG in D5% in Water 250 ML IVC SCH (18:30)
[2017-07-04 20:12] LABS: Bilirubin,Urine Small (Negative); Blood,Urine Large (Negative); Clarity,Urine Turbid (Clear); Color,Urine Orange (Yellow); Glucose,Urine (UA) Normal (Normal); Ketones,Urine Trace mg/dL (Negative); Leukocyte Esterase,Urine Large (Negative); Nitrite,Urine Negative (Negative); Protein,Urine 100 mg/dL (Neg-Trace); Specific Gravity,Urine > 1.030 (1.010-1.025); Urobilinogen,Urine Normal (Normal)
[2017-07-04 20:16] LABS: Squamous Epithelial Cell,Urine Many per lpf (None-Few); WBC,Urine 50-100 per hpf (0-3)
[2017-07-04] MEDS: Miconazole w/zinc oxide&karaya 92 APPL/92 GM TUBE TP SCH (20:23)
[2017-07-04 20:28] LABS: RBC,Urine 50-100 per hpf (0-3); Renal Epithelial Cells,Urine Few per hpf (None-Few); Transitional Epi Cells,Urine Moderate per hpf (None-Few); Yeast,Urine Moderate per hpf (None Seen)
[2017-07-04 20:29] LABS: Bacteria,Urine Few per hpf (None-Few)
[2017-07-05] MEDS: Norepinephrine 4 MG in D5% in Water 250 ML IVC SCH (00:48)
[2017-07-05] MEDS: Dexmedetomidine HCl 400 MCG/100 ML MLS IVC SCH ×4 (03:36→23:56)
[2017-07-05] MEDS: Lacri-Lube 3.5 GM TUBE BOTH EYES SCH ×5 (03:37→20:41)
[2017-07-05 03:44] LABS: Hemoglobin 9.4 g/dL (11.5-15.4); Red Cell Distribution Width 16.9 % (11.5-14.5)
[2017-07-05 03:46] LABS: Basophils # 0.1 K/mcL (0.0-0.2); Basophils % 0.3 %; Eosinophils # 0.1 K/mcL (0.0-0.6); Eosinophils % 0.5 %; Hematocrit 29.2 % (35.3-44.9); Immature Granulocytes % 1.8 % (0-4); Immature Platelets 8.4 % (1.1-6.1); Lymphocytes # 0.5 K/mcL (0.6-4.6); Mean Corpuscular HGB Conc 32.2 g/dL (31.6-35.5); Mean Corpuscular Hemoglobin 32.3 pg (28.0-33.3); Mean Corpuscular Volume 100.3 fL (83.0-100.0); Mean Platelet Volume 11.1 fL (9.4-12.4); Monocytes # 0.9 K/mcL (0.0-1.3); Monocytes % 5.6 %; Red Blood Count 2.91 M/mcL (3.82-4.97); Segmented Neutrophils % 88.8 %
[2017-07-05 03:47] LABS: Neutrophils # 14.9 K/mcL (1.6-8.9); Platelet Count 42 K/mcL (140-400)
[2017-07-05 03:48] LABS: INR 3.3; Prothrombin Time 36.4 Seconds (9.4-12.1)
[2017-07-05 03:51] LABS: Activated Partial Thrombo Time 65.2 Seconds (26.0-36.0)
[2017-07-05 03:56] LABS: Magnesium 1.4 mg/dL (1.6-2.6)
[2017-07-05 03:59] LABS: Phosphorous 4.5 mg/dL (2.3-4.7)
[2017-07-05] MEDS: Norepinephrine 16 MG in D5% in Water 250 ML IVC SCH ×2 (04:00→22:18)
[2017-07-05 04:02] LABS: Calcium 8.3 mg/dL (8.6-10.8); Potassium 4.6 mEq/L (3.5-4.5)
[2017-07-05 04:15] LABS: Ionized Calcium 1.18 mmol/L (1.15-1.35)
[2017-07-05] MEDS: FentaNYL (PF) 1,000 MCG in 0.9 % Sodium Chloride 80 ML IVC SCH ×3 (04:29→19:20)
[2017-07-05 04:31] LABS: ABG Base Excess -12.8 mEq/L (-2.0 to 3.0); ABG HCO3 15.3 mEQ/L (21-27); ABG Oxygen Saturation 80 % (95-98); ABG PCO2 44 mmHg (35-45); ABG PO2 58 mmHg (85-104); ABG TCO2 16.7 mEq/L (20-26)
[2017-07-05 04:32] LABS: Blood Gas FiO2 70 %
[2017-07-05 04:32] LABS: Platelet Estimate Decreased (Normal)
[2017-07-05 04:33] LABS: ABG PH 7.15 pH Units (7.32-7.45)
[2017-07-05 04:34] LABS: Burr Cells 1+ (Not Present)
[2017-07-05] MEDS ORDERED: Sodium Bicarbonate 150 MEQ in D5% in Water 1,000 ML IVC SCH (04:45)
[2017-07-05] MEDS ORDERED: Furosemide 40 MG/4 ML VIAL IVP ONE (04:51)
[2017-07-05] MEDS: Magnesium Sulfate 2 GM in D5% in Water 100 ML IVPB PRN ×2 (05:03→12:52)
[2017-07-05] MEDS: Insulin LISPRO 300 UNITS/3 ML VIAL SQ SCH ×3 (05:12→18:15)
[2017-07-05] MEDS ORDERED: *HR* Midazolam HCl 2 MG/2 ML VIAL IVP PRN (05:52)
--- NOTE | 2017-07-05 07:37 | Pulmonology Progress Note ---
<Digna Forte M - Last Filed: 07/05/17 09:15> Date of Encounter: 07/05/17 Objective PUL Vital signs: Last Vital Signs Temp 97.7 F 07/05/17 08:46 Pulse 101 07/05/17 09:00 Resp 19 07/05/17 09:13 BP 94/48 07/05/17 09:13 Pulse Ox 90 07/05/17 09:13 Ventilator Settings Ventilator Settings: Ventilator Settings, Last 8 Hours Ventilator Mode VC+ Ventilator Mode VC+ Ventilator Mode VC+ Ventilator Mode VC+ Ventilator Mode VC+ Ventilator Mode VC+ Ventilator Mode VC+ Ventilator Mode VC+ Ventilator Mode VC+ Ventilator Mode VC+ Ventilator Mode VC+ Ventilator Mode VC+ Ventilator Mode VC+ Ventilator Tidal Volume 550 Setting Ventilator Tidal Volume 550 Setting Ventilator Tidal Volume 550 Setting Ventilator Tidal Volume 550 Setting Ventilator Tidal Volume 450 Setting Ventilator Tidal Volume 450 Setting Ventilator Tidal Volume 450 Setting Ventilator Tidal Volume 450 Setting Ventilator Tidal Volume 450 Setting Ventilator Tidal Volume 450 Setting Ventilator Tidal Volume 450 Setting Ventilator Tidal Volume 450 Setting Ventilator Tidal Volume 450 Setting Ventilator Respiratory Rate 12 Setting Ventilator Respiratory Rate 12 Setting Ventilator Respiratory Rate 12 Setting Ventilator Respiratory Rate 12 Setting Ventilator Respiratory Rate 12 Setting Ventilator Respiratory Rate 12 Setting Ventilator Respiratory Rate 12 Setting Ventilator Respiratory Rate 12 Setting Ventilator Respiratory Rate 12 Setting Ventilator Respiratory Rate 12 Setting Ventilator Respiratory Rate 12 Setting Ventilator Respiratory Rate 12 Setting Ventilator Respiratory Rate 12 Setting Actual Respiratory Rate 19 Actual Respiratory Rate 14 Actual Respiratory Rate 14 Actual Respiratory Rate 19 Actual Respiratory Rate 12 Actual Respiratory Rate 16 Actual Respiratory Rate 19 Actual Respiratory Rate 20 Actual Respiratory Rate 19 Actual Respiratory Rate 17 Actual Respiratory Rate 18 Actual Respiratory Rate 18 Positive End Expiratory 8 Pressure Positive End Expiratory 8 Pressure Positive End Expiratory 8 Pressure Positive End Expiratory 8 Pressure Positive End Expiratory 8 Pressure Positive End Expiratory 8 Pressure Positive End Expiratory 8 Pressure Positive End Expiratory 8 Pressure Positive End Expiratory 5 Pressure Positive End Expiratory 5 Pressure Positive End Expiratory 5 Pressure Positive End Expiratory 5 Pressure Positive End Expiratory 5 Pressure Peak Inspiratory Airway 13 Pressure Peak Inspiratory Airway 13 Pressure Peak Inspiratory Airway 13 Pressure Peak Inspiratory Airway 13 Pressure Peak Inspiratory Airway 18 Pressure Peak Inspiratory Airway 14 Pressure Peak Inspiratory Airway 35 Pressure Peak Inspiratory Airway 18 Pressure Peak Inspiratory Airway 17 Pressure Peak Inspiratory Airway 11 Pressure Peak Inspiratory Airway 11 Pressure Peak Inspiratory Airway 11 Pressure Results - Laboratory Findings CBC and BMP: 07/05/17 03:26 07/05/17 03:26 ABG ABG pH 7.15 pH Units (7.32-7.45) L* 07/05/17 04:15 ABG pCO2 44 mmHg (35-45) 07/05/17 04:15 ABG pO2 58 mmHg (85-104) L 07/05/17 04:15 ABG O2 Saturation 80 % (95-98) L 07/05/17 04:15 PT/INR, D-dimer PT 36.4 Seconds (9.4-12.1) H 07/05/17 03:26 Abnormal lab findings: Abnormal lab results WBC 16.8 K/mcL (4.3-11.1) H D 07/05/17 03:26 RBC 2.91 M/mcL (3.82-4.97) L 07/05/17 03:26 Hgb 9.4 g/dL (11.5-15.4) L 07/05/17 03:26 Hct 29.2 % (35.3-44.9) L 07/05/17 03:26 MCV 100.3 fL (83.0-100.0) H 07/05/17 03:26 RDW 16.9 % (11.5-14.5) H 07/05/17 03:26 Plt Count 42 K/mcL (140-400) L D 07/05/17 03:26 Neutrophils # 14.9 K/mcL (1.6-8.9) H 07/05/17 03:26 Lymphocytes # 0.5 K/mcL (0.6-4.6) L 07/05/17 03:26 Toxic Granulation Present (Not Present) A 07/03/17 09:07 Platelet Estimate Decreased (Normal) L 07/05/17 03:26 Immature Plt Fraction 8.4 % (1.1-6.1) H 07/05/17 03:26 Poikilocytosis 1+ (Not Present) A 07/04/17 06:00 Anisocytosis 1+ (Not Present) A 07/04/17 06:00 [place] Cells 1+ (Not Present) A 07/05/17 03:26 PT 36.4 Seconds (9.4-12.1) H 07/05/17 03:26 APTT 65.2 Seconds (26.0-36.0) H 07/05/17 03:26 ABG pH 7.15 pH Units (7.32-7.45) L* 07/05/17 04:15 ABG pO2 58 mmHg (85-104) L 07/05/17 04:15 ABG HCO3 15.3 mEQ/L (21-27) L 07/05/17 04:15 ABG Total CO2 16.7 mEq/L (20-26) L 07/05/17 04:15 ABG O2 Saturation 80 % (95-98) L 07/05/17 04:15 ABG Base Excess -12.8 mEq/L (-2.0 to 3.0) L 07/05/17 04:15 Sodium 123 mEq/L (136-145) L 07/05/17 03:26 Potassium 4.6 mEq/L (3.5-4.5) H 07/05/17 03:26 Carbon Dioxide 15 mEq/L (19-29) L 07/05/17 03:26 BUN 37 mg/dL (7-20) H 07/05/17 03:26 Creatinine 1.71 mg/dL (0.57-1.11) H 07/05/17 03:26 Est GFR ( Amer) 37 (> 60) L 07/05/17 03:26 Est GFR (Non-Af Amer) 31 (> 60) L 07/05/17 03:26 Glucose 107 mg/dL (70-99) H 07/05/17 03:26 POC Glucose 111 (58-89) H 07/05/17 05:06 Calculated Osmolality 265 (280-300) L 07/05/17 03:26 Lactic Acid 6.0 mmol/L (0.5-2.2) H* 07/05/17 03:26 Calcium 8.3 mg/dL (8.6-10.8) L 07/05/17 03:26 Magnesium 1.4 mg/dL (1.6-2.6) L 07/05/17 03:26 Total Bilirubin 5.4 mg/dL (0.2-1.2) H 07/04/17 08:53 Direct Bilirubin 2.4 mg/dL (0.0-0.5) H 07/04/17 08:53 Indirect Bilirubin 3.0 mg/dL (0.0-1.2) H 07/04/17 08:53 AST 42 Units/L (5-34) H 07/04/17 08:53 B-Natriuretic Peptide 367 pg/mL (0-100) H 07/05/17 03:26 Serum Total Protein 5.6 g/dL (6.0-8.3) L 07/04/17 08:53 Albumin 2.8 g/dL (3.5-5.0) L D 07/04/17 08:53 Albumin/Globulin Ratio 1.0 (1.1-2.2) L 07/04/17 08:53 Ur Specimen Adequacy See below A 07/02/17 16:45 Urine Color [place] (Yellow) A 07/04/17 19:45 Urine Clarity Turbid (Clear) A 07/04/17 19:45 Ur Specific Reading > 1.030 (1.010-1.025) H 07/04/17 19:45 Urine Protein 100 mg/dL (Neg-Trace) H 07/04/17 19:45 Urine Ketones Trace mg/dL (Negative) H 07/04/17 19:45 Urine Blood Large (Negative) H 07/04/17 19:45 Urine Bilirubin Small (Negative) H 07/04/17 19:45 Ur Leukocyte Esterase Large (Negative) H 07/04/17 19:45 Urine Microscopic RBC 50-100 per hpf (0-3) H 07/04/17 19:45 Urine Microscopic WBC 50-100 per hpf (0-3) H 07/04/17 19:45 Ur Squamous Epith Cells Many per lpf (None-Few) H 07/04/17 19:45 Ur Transition Epith Cell Moderate per hpf (None-Few) H 07/04/17 19:45 Urine Yeast Moderate per hpf (None Seen) H 07/04/17 19:45 Ur Culture Indicated? YES (NO) A 07/04/17 19:45 Enterobacteriac sp PCR DETECTED (Not Detect) A 07/02/17 17:16 E. cloacae complex PCR DETECTED (Not Detect) A 07/02/17 17:16 - Clinical Findings Intake & Output: Intake & Output 07/04/17 07/05/17 07/05/17 23:59 07:59 15:59 Intake Total 750 / 750 892 / 892 283 / 283 Output Total 115 / 115 10 10 Balance 635 / 635 882 / 882 283 / 283 Weight 122.85 kg Consult Discharge Plan - Plan Referrals: NONE,PCP [Primary Care Provider] - - Attending Attestation I examined this patient and my medical decision-making was reviewed with the Resident Physician. I agree with the documented findings, disposition and treatment plan as described except to the extent set forth below. Patient seen and examined. Labs, radiology, chart personally reviewed. Agree with resident's history and physical, assessment, plan with following comments: EMPLOYMENT ADVISOR: Patient does not follows commands, I suspect metabolic encephalopathy and we consider CT images since patient is thrombocytopenic and risk of intracranial bleed. Pulmonary: There is significant worsening of oxygenation due to volume overload and third spacing and I am hoping emma will help with fluid management. Changed tidal volume and I am hoping that will help some of her breath stacking. There is also evidence of pulmonary edema. Cardiovascular: Patient is unstable and continue vasopressors. GI: Nutrition per dietary and GI prophylaxis per routine. As indicated before due to thrombocytopenia and history of liver cirrhosis will avoid any injury urology. I'll consider TPN. Heme: DVT prophylaxis per routine. Thrombocytopenia and need for platelet transfusion since patient will need line placement. ID: Continue antibiotics and plan to de-escalation. Change antibiotics. Renal; urine out put and renal funtion reviewed. Patient will need renal replacement therapy and flight information expediter on board. Endorcine: blood glucose is monitored Lines: all lines checked and no evidence of infections Skin: skin care to prevent pressure ulcers per nursing routine care Overall extremely poor prognosis. I spent 40 min of Critical Care time with this patient. It involved decision making of high complexity to assess, manipulate, and support vital organ system failure and/or to prevent further life threatening deterioration of the patient' s condition. The time involved in the performance of separately reportable procedures was not counted toward critical care time. <Finn Jamison - Last Filed: 07/05/17 15:08> Date of Encounter: 07/05/17 Time of Encounter: 07:35 Assessment and Plan (1) Gram negative septic shock Current Visit: Yes Status: Acute Septic shock due to Enterobacter. We have gotten the sensitivities back showing resistance to Zosyn. We will discontinue the Zosyn and Cipro. We have started meropenem which was shown to be sensitive on the Micro report. Patient is currently intubated and on a ventilator. Patient is still requiring Levophed to maintain blood pressure. (2) Lactic acidosis Current Visit: Yes Status: Acute Lactic acidosis has worsened. Patient's last lactic acid level is now 6.5. pH on ABG was 7.10. Sodium bicarb will be given via pushes. Discontinued the iv bicarb drip due to the fluid overload of the patient. We will continue to follow lactic acid level. (3) Urinary tract infection Current Visit: Yes Status: Acute Patient has urinary tract infection. Urine cultures shows yeast growth. We have added fluconazole to treat for the yeast. Qualifiers: Urinary tract infection type: site unspecified Hematuria presence: without hematuria Qualified Code(s): N39.0 - Urinary tract infection, site not specified (4) Altered mental status Current Visit: Yes Status: Acute Patient is currently intubated and sedated and on the ventilator. Qualifiers: Altered mental status type: unspecified Qualified Code(s): R41.82 - Altered mental status, unspecified (5) Hyponatremia Current Visit: Yes Status: Acute Patient's most recent sodium level was 123. Which has decrease from previous labs. We have consulted nephrology. The patient is fluid overloaded and has been started on dialysis. We will continue to follow the patient's sodium level. (6) TERRELL (acute kidney injury) Current Visit: Yes Status: Acute Acute kidney injury likely due to sepsis and hypotension throughout the disease process. Patient's GFR is currently 31 which is declining from 41 yesterday. Baseline is greater than 60. We will continue to use a Levophed to increased blood pressure and improve renal perfusion. We have consulted nephrology who has come and evaluated the patient and suggest that we start with giving IV Lasix but if that does not help she may need CVVHDF. We have given IV Lasix overnight with no improvement and continued minimal urine output. Will have a dialysis catheter placed by IR and then will get dialysis. (7) Diabetes mellitus Current Visit: Yes Status: Chronic Patient's most recent glucose level was 107. Patient is currently on sliding scale insulin to manage her diabetes while in the hospital. Qualifiers: Diabetes mellitus type: type 2 Diabetes mellitus complication status: with hyperglycemia Diabetes mellitus care home insulin use: without care home use Qualified Code(s): E11.65 - Type 2 diabetes mellitus with hyperglycemia (8) Cirrhosis Current Visit: No Status: Chronic Patient has history of cirrhosis. INR 3.3, albumin 2.8 total bilirubin 5.4. We will continue her home medications of lactulose and rifaximin. CT showed moderate ascites due to the patient's platelets being 42 we will not do a paracentesis at this time. Qualifiers: Hepatic cirrhosis type: unspecified hepatic cirrhosis Ascites presence: with ascites Qualified Code(s): K74.60 - Unspecified cirrhosis of liver (9) Thrombocytopenia Current Visit: No Status: Chronic Patient's platelets are currently at 42. We will continue to hold heparin and monitored her labs. We have transfused the patient with platelets so she was able to have her dialysis catheter placed. (10) Anemia Current Visit: No Status: Acute Patient's anemia has shown mild improvement. Her hemoglobin is 9.4. This anemia was likely due to the fluid resuscitation the patient we will continue to monitor the patient's hemoglobin with CBCs. Qualifiers: Anemia type: unspecified type Qualified Code(s): D64.9 - Anemia, unspecified (11) Coagulopathy Current Visit: Yes Status: Chronic Likely due to patient's cirrhosis. Current INR is 3.3. We will continue to monitor the patient's coags every 12 hours. (12) Decubital ulcer Current Visit: Yes Status: Acute Consulted wound care. We will position the patient with wedges and pillows to limit the pressure on the ulcers. We will alternate which side as well. Patient was moved to an XPERT bed to help reduce pressure on the decubitus. We have also add an antifungal cream. 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 Examination was deferred due to patient discomfort. They stated that the patient's vulvar cancer was noncontributory to the patient's current hospitalization. (14) DVT prophylaxis Current Visit: No Status: Acute SCDs have been ordered for the patient for prophylaxis. Heparin was not being given at this time due to the patient having very low platelets of 42 Subjective Principal diagnosis: Septic shock Interval history: Pre the nursing staff the patient did well overnight other than becoming slightly agitated and stacking breaths on the ventilator. Versed pushes were given to calm the patient. Patient was also given IV Lasix but there is still minimal urine output. The patient is still intubated and sedated. Further history is unobtainable from the patient due to her condition. Objective PUL Vital signs: Last Vital Signs Temp 97.4 F L 07/05/17 03:43 Pulse 101 07/05/17 06:00 Resp 19 07/05/17 07:15 BP 92/45 07/05/17 07:15 Pulse Ox 93 07/05/17 07:15 General appearance: other (Patient has been intubated and sedated) Eyes: icteric ENT: oropharynx dry, other (Patient is currently intubated) Neck: JVD, other Effort: other (Currently intubated and on a ventilator) Auscultation: bilateral: rales Cardiovascular: regular rate and rhythm Gastrointestinal: hypoactive bowel sounds, other (Distended) Integumentary: decubitus ulcer (On the lower back and buttock), other (Diffuse ecchymosis on bilateral upper extremities) Extremities: no cyanosis, no clubbing, pink and warm, edema (Diffuse 3+ pitting edema in the lower extremities bilaterally) Musculoskeletal: no deformities unable to assess due to mental status other (Unable to assess due to the patient ) Ventilator Settings Ventilator Settings: Ventilator Settings, Last 8 Hours Ventilator Mode VC+ Ventilator Mode VC+ Ventilator Mode VC+ Ventilator Mode VC+ Ventilator Mode VC+ Ventilator Mode VC+ Ventilator Mode VC+ Ventilator Mode VC+ Ventilator Mode VC+ Ventilator Mode VC+ Ventilator Mode VC+ Ventilator Tidal Volume 550 Setting Ventilator Tidal Volume 450 Setting Ventilator Tidal Volume 450 Setting Ventilator Tidal Volume 450 Setting Ventilator Tidal Volume 450 Setting Ventilator Tidal Volume 450 Setting Ventilator Tidal Volume 450 Setting Ventilator Tidal Volume 450 Setting Ventilator Tidal Volume 450 Setting Ventilator Tidal Volume 450 Setting Ventilator Tidal Volume 450 Setting Ventilator Respiratory Rate 12 Setting Ventilator Respiratory Rate 12 Setting Ventilator Respiratory Rate 12 Setting Ventilator Respiratory Rate 12 Setting Ventilator Respiratory Rate 12 Setting Ventilator Respiratory Rate 12 Setting Ventilator Respiratory Rate 12 Setting Ventilator Respiratory Rate 12 Setting Ventilator Respiratory Rate 12 Setting Ventilator Respiratory Rate 12 Setting Ventilator Respiratory Rate 12 Setting Actual Respiratory Rate 19 Actual Respiratory Rate 16 Actual Respiratory Rate 19 Actual Respiratory Rate 20 Actual Respiratory Rate 19 Actual Respiratory Rate 17 Actual Respiratory Rate 18 Actual Respiratory Rate 18 Actual Respiratory Rate 16 Actual Respiratory Rate 19 Positive End Expiratory 8 Pressure Positive End Expiratory 8 Pressure Positive End Expiratory 8 Pressure Positive End Expiratory 8 Pressure Positive End Expiratory 5 Pressure Positive End Expiratory 5 Pressure Positive End Expiratory 5 Pressure Positive End Expiratory 5 Pressure Positive End Expiratory 5 Pressure Positive End Expiratory 5 Pressure Positive End Expiratory 5 Pressure Peak Inspiratory Airway 13 Pressure Peak Inspiratory Airway 14 Pressure Peak Inspiratory Airway 35 Pressure Peak Inspiratory Airway 18 Pressure Peak Inspiratory Airway 17 Pressure Peak Inspiratory Airway 11 Pressure Peak Inspiratory Airway 11 Pressure Peak Inspiratory Airway 11 Pressure Peak Inspiratory Airway 10 Pressure Peak Inspiratory Airway 11 Pressure Results - Laboratory Findings CBC and BMP: 07/05/17 03:26 07/05/17 03:26 ABG ABG pH 7.15 pH Units (7.32-7.45) L* 07/05/17 04:15 ABG pCO2 44 mmHg (35-45) 07/05/17 04:15 ABG pO2 58 mmHg (85-104) L 07/05/17 04:15 ABG O2 Saturation 80 % (95-98) L 07/05/17 04:15 PT/INR, D-dimer PT 36.4 Seconds (9.4-12.1) H 07/05/17 03:26 Abnormal lab findings: Abnormal lab results WBC 16.8 K/mcL (4.3-11.1) H D 07/05/17 03:26 RBC 2.91 M/mcL (3.82-4.97) L 07/05/17 03:26 Hgb 9.4 g/dL (11.5-15.4) L 07/05/17 03:26 Hct 29.2 % (35.3-44.9) L 07/05/17 03:26 MCV 100.3 fL (83.0-100.0) H 07/05/17 03:26 RDW 16.9 % (11.5-14.5) H 07/05/17 03:26 Plt Count 42 K/mcL (140-400) L D 07/05/17 03:26 Neutrophils # 14.9 K/mcL (1.6-8.9) H 07/05/17 03:26 Lymphocytes # 0.5 K/mcL (0.6-4.6) L 07/05/17 03:26 Toxic Granulation Present (Not Present) A 07/03/17 09:07 Platelet Estimate Decreased (Normal) L 07/05/17 03:26 Immature Plt Fraction 8.4 % (1.1-6.1) H 07/05/17 03:26 Poikilocytosis 1+ (Not Present) A 07/04/17 06:00 Anisocytosis 1+ (Not Present) A 07/04/17 06:00 [place] Cells 1+ (Not Present) A 07/05/17 03:26 PT 36.4 Seconds (9.4-12.1) H 07/05/17 03:26 APTT 65.2 Seconds (26.0-36.0) H 07/05/17 03:26 ABG pH 7.15 pH Units (7.32-7.45) L* 07/05/17 04:15 ABG pO2 58 mmHg (85-104) L 07/05/17 04:15 ABG HCO3 15.3 mEQ/L (21-27) L 07/05/17 04:15 ABG Total CO2 16.7 mEq/L (20-26) L 07/05/17 04:15 ABG O2 Saturation 80 % (95-98) L 07/05/17 04:15 ABG Base Excess -12.8 mEq/L (-2.0 to 3.0) L 07/05/17 04:15 Sodium 123 mEq/L (136-145) L 07/05/17 03:26 Potassium 4.6 mEq/L (3.5-4.5) H 07/05/17 03:26 Carbon Dioxide 15 mEq/L (19-29) L 07/05/17 03:26 BUN 37 mg/dL (7-20) H 07/05/17 03:26 Creatinine 1.71 mg/dL (0.57-1.11) H 07/05/17 03:26 Est GFR ( Amer) 37 (> 60) L 07/05/17 03:26 Est GFR (Non-Af Amer) 31 (> 60) L 07/05/17 03:26 Glucose 107 mg/dL (70-99) H 07/05/17 03:26 POC Glucose 111 (58-89) H 07/05/17 05:06 Calculated Osmolality 265 (280-300) L 07/05/17 03:26 Lactic Acid 6.0 mmol/L (0.5-2.2) H* 07/05/17 03:26 Calcium 8.3 mg/dL (8.6-10.8) L 07/05/17 03:26 Magnesium 1.4 mg/dL (1.6-2.6) L 07/05/17 03:26 Total Bilirubin 5.4 mg/dL (0.2-1.2) H 07/04/17 08:53 Direct Bilirubin 2.4 mg/dL (0.0-0.5) H 07/04/17 08:53 Indirect Bilirubin 3.0 mg/dL (0.0-1.2) H 07/04/17 08:53 AST 42 Units/L (5-34) H 07/04/17 08:53 B-Natriuretic Peptide 367 pg/mL (0-100) H 07/05/17 03:26 Serum Total Protein 5.6 g/dL (6.0-8.3) L 07/04/17 08:53 Albumin 2.8 g/dL (3.5-5.0) L D 07/04/17 08:53 Albumin/Globulin Ratio 1.0 (1.1-2.2) L 07/04/17 08:53 Ur Specimen Adequacy See below A 07/02/17 16:45 Urine Color [place] (Yellow) A 07/04/17 19:45 Urine Clarity Turbid (Clear) A 07/04/17 19:45 Ur Specific Reading > 1.030 (1.010-1.025) H 07/04/17 19:45 Urine Protein 100 mg/dL (Neg-Trace) H 07/04/17 19:45 Urine Ketones Trace mg/dL (Negative) H 07/04/17 19:45 Urine Blood Large (Negative) H 07/04/17 19:45 Urine Bilirubin Small (Negative) H 07/04/17 19:45 Ur Leukocyte Esterase Large (Negative) H 07/04/17 19:45 Urine Microscopic RBC 50-100 per hpf (0-3) H 07/04/17 19:45 Urine Microscopic WBC 50-100 per hpf (0-3) H 07/04/17 19:45 Ur Squamous Epith Cells Many per lpf (None-Few) H 07/04/17 19:45 Ur Transition Epith Cell Moderate per hpf (None-Few) H 07/04/17 19:45 Urine Yeast Moderate per hpf (None Seen) H 07/04/17 19:45 Ur Culture Indicated? YES (NO) A 07/04/17 19:45 Enterobacteriac sp PCR DETECTED (Not Detect) A 07/02/17 17:16 E. cloacae complex PCR DETECTED (Not Detect) A 07/02/17 17:16 - Diagnostic Findings Chest x-ray: report reviewed, image reviewed - Clinical Findings Intake & Output: Intake & Output 07/04/17 07/04/17 07/05/17 15:59 23:59 07:59 Intake Total 539 / 539 750 / 750 892 / 892 Output Total 100 / 100 115 / 115 10 / 10 Balance 439 / 439 635 / 635 882 / 882 Weight 122.85 kg - VTE Documentation of Mechanical Device: Graduated compression elastic hosiery
[2017-07-05] MEDS: Lactulose Oral Soln 20 GM/30 ML UDC PO SCH ×2 (08:12→19:44)
[2017-07-05] MEDS: Pantoprazole 40 MG VIAL IVPB SCH (08:12)
[2017-07-05] MEDS: Chlorhexidine Rinse 15 ML MOUTHWASH MM SCH ×2 (08:13→20:41)
[2017-07-05] MEDS: Piperacillin/Tazobactam 3.375 GM in D5% in Water (Mini-Bag+) 100 ML IVPB SCH (08:13)
[2017-07-05] MEDS: Miconazole w/zinc oxide&karaya 92 APPL/92 GM TUBE TP SCH ×2 (08:13→20:41)
[2017-07-05] MEDS ORDERED: 0.9 % Sodium Chloride 250 ML ONE (08:19)
[2017-07-05] MEDS ORDERED: Aminoglycoside Consult 1 EACH MC ONE (09:03)
[2017-07-05 09:24] LABS: ABG Base Excess -12.7 mEq/L (-2.0 to 3.0); ABG HCO3 16.5 mEQ/L (21-27); ABG Oxygen Saturation 81 % (95-98); ABG PCO2 53 mmHg (35-45); ABG PO2 62 mmHg (85-104); ABG TCO2 18.1 mEq/L (20-26)
[2017-07-05 09:25] LABS: Blood Gas FiO2 80 %; Blood Gas PEEP 8 cm H2O; Blood Gas Respiration Rate 12; Blood Gas VT 550 cc
[2017-07-05] MEDS: Meropenem 1,000 MG in 0.9 % Sodium Chloride Mini Bag 100 ML IVPB SCH ×2 (10:26→18:15)
[2017-07-05] MEDS: Budesonide/Formoterol 160/4.5 MDI IH SCH ×2 (10:28→21:02)
[2017-07-05] MEDS ORDERED: 0.9 % Sodium Chloride 1,000 ML PRIME ONE (10:46)
[2017-07-05] MEDS ORDERED: *HR* Alteplase (Cathflo) 2 MG VIAL IVP PRN (10:46)
[2017-07-05] MEDS ORDERED: PrismaSATE BGK 4/2.5 5,000 ML CRRT SCH ×2 (11:00)
[2017-07-05] MEDS: PrismaSATE BGK 4/2.5 5,000 ML CRRT SCH ×10 (12:10→22:35)
[2017-07-05] MEDS: 0.9 % Sodium Chloride 1,000 ML PRIME SCH (12:12)
[2017-07-05] MEDS ORDERED: Fluconazole 400 MG/200 ML 400 MG/200 ML BAG IVPB ONE (12:15)
[2017-07-05 12:55] LABS: ABG Base Excess -9.8 mEq/L (-2.0 to 3.0); ABG HCO3 20.2 mEQ/L (21-27); ABG Oxygen Saturation 95 % (95-98); ABG PCO2 68 mmHg (35-45); ABG PO2 105 mmHg (85-104); ABG TCO2 22.3 mEq/L (20-26)
[2017-07-05 12:57] LABS: ABG PH 7.08 pH Units (7.32-7.45); Blood Gas FiO2 100 %; Blood Gas PEEP 8 cm H2O; Blood Gas Respiration Rate 12; Blood Gas VT 550 cc
--- NOTE | 2017-07-05 13:08 | Nephrology Progress Note ---
Date of Encounter: 07/05/17 Time of Encounter: 13:05 - Assessment and Plan (1) TERRELL (acute kidney injury) Current Visit: Yes Status: Acute Decreasing urine output. Worsening acidosis. Will initiate CVVHDF. Goal UF 25-50 cc/hr today then can titrate as needed/tolerated. 1500ml/hr Dialysate and pre filter replacement fluid rates. Renal panel q 8 hours. No anticoagulation given her cirrhosis and thrombocytopenia. Adjust medication for renal function. (2) Septic shock Current Visit: Yes Status: Acute with enterobacter bacteremia and yeast in her urine. Patient will need antifungal agent along with her antibiotics. Patient with severe sepsis with multiorgan failure. Management per critical care team. (3) Cirrhosis of liver with ascites Current Visit: Yes Status: Chronic Per primary team. Monitor coagulopathy. Patient at risk of HRS. Qualifiers: Hepatic cirrhosis type: unspecified hepatic cirrhosis Qualified Code(s): K74.60 - Unspecified cirrhosis of liver (4) Vulvar cancer, carcinoma Current Visit: Yes Status: Chronic Outpatient management. (5) Anemia Current Visit: No Status: Acute Monitor for bleeding. Transfuse as needed. Qualifiers: Anemia type: unspecified type Qualified Code(s): D64.9 - Anemia, unspecified (6) Acidosis Current Visit: Yes Status: Acute Patient with metabolic and respiratory acidosis. Patient on CVVHDF for metabolic acidosis. Ok to give supplemental bicarbonate for now. Adjust vent settings for respiratory acidosis. Subjective Principal diagnosis: Septic shock Interval history: Patient seen and evaluated. Patient intubated and sedated. Review of systems is unobtainable. Objective - Vital Signs Vital signs: Vital Signs Temp Pulse Resp BP Pulse Ox 07/05/17 12:00 97.7 F 100 12 94/38 100 07/05/17 11:00 105 15 106/56 94 07/05/17 10:49 14 112/58 88 07/05/17 10:30 97.7 F 105 14 106/56 92 07/05/17 10:29 14 103/63 90 07/05/17 10:00 104 15 112/58 92 07/05/17 09:13 19 94/48 90 07/05/17 09:00 101 16 94/48 90 07/05/17 08:46 97.7 F 105 12 116/70 91 07/05/17 08:25 97.7 F 98 13 91/47 93 07/05/17 08:00 98 12 91/53 91 07/05/17 07:15 19 92/45 93 07/05/17 07:00 97.6 F 101 12 92/45 93 07/05/17 06:00 101 16 92/59 92 07/05/17 05:00 101 19 93/55 95 07/05/17 04:45 18 93/56 90 07/05/17 04:00 99 19 72/35 90 07/05/17 03:43 97.4 F L 07/05/17 03:00 103 17 96/48 90 07/05/17 02:34 18 69/55 90 07/05/17 02:00 105 18 92/55 89 07/05/17 01:00 103 16 90/62 92 07/05/17 00:14 106 07/05/17 00:00 107 19 87/56 92 07/04/17 23:50 97.5 F L 07/04/17 23:00 107 14 91/48 88 07/04/17 22:52 14 105/57 90 07/04/17 22:00 108 13 106/54 90 07/04/17 21:00 114 14 78/43 91 07/04/17 20:15 115 07/04/17 20:09 15 62/41 91 07/04/17 20:00 109 15 62/41 91 07/04/17 19:51 99.6 F 07/04/17 19:00 112 15 94/45 88 07/04/17 18:49 16 89 07/04/17 18:00 104 16 94/64 89 07/04/17 17:00 104 16 85/51 90 07/04/17 16:26 16 92 07/04/17 16:14 98.7 F 07/04/17 16:00 89 16 83/41 92 07/04/17 15:00 98 14 89/50 93 07/04/17 14:00 97 14 90/51 93 07/04/17 13:47 15 95 Intake and Output 07/04/17 07/05/17 07/05/17 23:59 07:59 15:59 Intake Total 750 / 750 892 / 892 1072.3 / 1072.3 Output Total 115 / 115 10 Balance 635 / 635 882 / 882 1072.3 / 1072.3 Intake: IV Fluids 750 / 750 892 / 892 666.3 / 666.3 0.9 % Sodium Chloride 250 250 / 250 ML As .ROUTE .[facility]K-[facility] Rx#:[id number] PRECEDEX 400 mcg In 100 100 / 100 100 / 100 100 / 100 ml @ 0.2 MCG/KG/HR 5.634 mls/hr IVC .[id number] [facility] Rx#:[id number] FentaNYL (PF) 1,000 MCG 100 / 100 138 / 138 62 / 62 In 0.9 % Sodium Chloride 80 ML @ 50 MCG/HR 5 mls/ hr IVC CONT [facility] Rx#: [id number] Versed 50 MG In 0.9 % 10.8 / 10.8 Sodium Chloride 90 ML @ 0 .03 MG/KG/MIN 442.26 mls/ hr IVC CONT [facility] Rx#: [id number] Levophed 16 MG In 250 / 250 250 / 250 56 / 56 Dextrose 5% 250 ML @ 5 MCG/MIN 4.98 mls/hr IVC CONT [facility] Rx#:[id number] Cipro Premix 400 MG/200 200 / 200 200 / 200 ML 400 mg In 200 ml @ 200 mls/hr IVPB Q8H [facility] Rx#: [id number] Magnesium Sulfate 2 GM In 104 / 104 Dextrose 5% 100 ML @ 50 mls/hr IVPB Q6H PRN Rx#: [id number] Merrem 1,000 MG In 0.9 % 100 / 100 Sodium Chloride (Mini-Bag +) 100 ML @ 200 mls/hr IVPB Q8H [facility] Rx#: [id number] AquaMephyton 5 MG In 0.9 50.5 / 50.5 % Sodium Chloride 50 ML @ 100 mls/hr IVPB DAILY [facility] Rx#:[id number] Zosyn 3.375 GM In 100 / 100 100 / 100 37 / 37 Dextrose 5% (Minibag+) 100 ML 100 ML @ 25 mls/hr IVPB Q8HR [facility] Rx#: [id number] Oral 0 / 0 Blood Product 406 / 406 Platelet Pheresis Lp Irr 2nd Unit [id number] Platelet Pheresis Lp Irr 2nd Unit [id number] Output: Urine 0 / 0 Catheter 115 / 115 10 / 10 Other: Weight 122.85 kg Blood Glucose* 115 111 114 Patient Weight 07/05/17 23:59 Weight 122.85 kg - General Appearance General appearance: Present: well-developed, well-nourished, sedated on ventilator, intubated EENT: Present: ATNC Respiratory: Present: course breath sounds Cardiology: Present: edema Additional Comments: tachycardic. Gastrointestinal: Present: no tenderness Additional Comments: sedated. - Lab 07/05/17 03:26 07/05/17 03:26 Most recent lab results ABG pH 7.08 pH Units (7.32-7.45) L* 07/05/17 12:40 ABG pCO2 68 mmHg (35-45) H 07/05/17 12:40 ABG pO2 105 mmHg (85-104) H 07/05/17 12:40 ABG HCO3 20.2 mEQ/L (21-27) L 07/05/17 12:40 ABG O2 Saturation 95 % (95-98) 07/05/17 12:40 Calcium 8.3 mg/dL (8.6-10.8) L 07/05/17 03:26 Phosphorus 4.5 mg/dL (2.3-4.7) D 07/05/17 03:26 Magnesium 1.6 mg/dL (1.6-2.6) 07/05/17 10:51 Urine Creatinine 131 mg/dL 07/04/17 19:45 Urine Sodium 23.0 mEq/L 07/04/17 19:45 - VTE Documentation of Mechanical Device: Graduated compression elastic hosiery Consult Discharge Plan - Plan Referrals: NONE,PCP [Primary Care Provider] -
--- NOTE | 2017-07-05 14:50 | Event Note ---
Date of Encounter: 07/05/17 Time of Encounter: 13:45 Met with S/O and MARIBELL Webb and spoke with pt father re: clinical status. They are aware that she is critically ill and may not survive. Jon desires to keep her full code per pt wishes.
[2017-07-05 16:16] LABS: ABG Base Excess -4.8 mEq/L (-2.0 to 3.0); ABG Oxygen Saturation 99 % (95-98); ABG PCO2 49 mmHg (35-45); ABG PH 7.26 pH Units (7.32-7.45); ABG PO2 184 mmHg (85-104); ABG TCO2 23.5 mEq/L (20-26)
[2017-07-05 16:18] LABS: Blood Gas FiO2 100 %
[2017-07-05 16:20] LABS: Eosinophils % 0.5 %; Lymphocytes % 2.5 %; Red Cell Distribution Width 16.8 % (11.5-14.5)
[2017-07-05 16:22] LABS: Basophils % 0.2 %; Eosinophils # 0.1 K/mcL (0.0-0.6); Hematocrit 29.6 % (35.3-44.9); Hemoglobin 9.4 g/dL (11.5-15.4); Immature Granulocytes % 0.8 % (0-4); Immature Platelets 6.4 % (1.1-6.1); Lymphocytes # 0.4 K/mcL (0.6-4.6); Mean Corpuscular HGB Conc 31.8 g/dL (31.6-35.5); Mean Corpuscular Hemoglobin 32.3 pg (28.0-33.3); Mean Corpuscular Volume 101.7 fL (83.0-100.0); Mean Platelet Volume 11.3 fL (9.4-12.4); Monocytes # 0.7 K/mcL (0.0-1.3); Monocytes % 4.7 %; Red Blood Count 2.91 M/mcL (3.82-4.97); Segmented Neutrophils % 91.3 %
[2017-07-05 16:33] LABS: Potassium 4.3 mEq/L (3.5-4.5)
[2017-07-05 16:34] LABS: INR 2.9; Prothrombin Time 32.7 Seconds (9.4-12.1)
[2017-07-05 16:36] LABS: Activated Partial Thrombo Time 64.1 Seconds (26.0-36.0)
[2017-07-05 16:37] LABS: Neutrophils # 13.7 K/mcL (1.6-8.9); Platelet Count 62 K/mcL (140-400)
[2017-07-05 17:08] LABS: Platelet Estimate Decreased (Normal)
[2017-07-05 22:41] LABS: ABG HCO3 21.6 mEQ/L (21-27); ABG Oxygen Saturation 88 % (95-98); ABG PCO2 58 mmHg (35-45); ABG PO2 69 mmHg (85-104); ABG TCO2 23.4 mEq/L (20-26)
[2017-07-05 22:43] LABS: ABG PH 7.18 pH Units (7.32-7.45); Blood Gas FiO2 70 %
[2017-07-05] MEDS: *HR* Heparin 5,000 UNIT/ML VIAL IV PRN (23:57)
[2017-07-06] MEDS: Lacri-Lube 3.5 GM TUBE BOTH EYES SCH ×5 (00:19→16:26)
[2017-07-06] MEDS: Insulin LISPRO 300 UNITS/3 ML VIAL SQ SCH ×4 (00:19→17:47)
[2017-07-06] MEDS: 0.9 % Sodium Chloride 1,000 ML PRIME SCH (00:20)
[2017-07-06] MEDS: Meropenem 1,000 MG in 0.9 % Sodium Chloride Mini Bag 100 ML IVPB SCH ×3 (01:30→17:48)
[2017-07-06 01:46] LABS: ABG Base Excess -7.6 mEq/L (-2.0 to 3.0); ABG HCO3 20.6 mEQ/L (21-27); ABG Oxygen Saturation 100 % (95-98); ABG PCO2 54 mmHg (35-45); ABG PO2 208 mmHg (85-104); ABG TCO2 22.3 mEq/L (20-26)
[2017-07-06 01:48] LABS: Blood Gas FiO2 100 %
[2017-07-06 01:49] LABS: ABG PH 7.19 pH Units (7.32-7.45)
[2017-07-06] MEDS: PrismaSATE BGK 4/2.5 5,000 ML CRRT SCH ×10 (02:55→16:54)
[2017-07-06 04:10] LABS: Red Blood Count 3.11 M/mcL (3.82-4.97)
[2017-07-06 04:12] LABS: Basophils % 0.3 %; Eosinophils # 0.1 K/mcL (0.0-0.6); Eosinophils % 0.6 %; Hematocrit 31.4 % (35.3-44.9); Hemoglobin 10.1 g/dL (11.5-15.4); Immature Granulocytes % 0.7 % (0-4); Immature Platelets 6.8 % (1.1-6.1); Lymphocytes # 0.3 K/mcL (0.6-4.6); Lymphocytes % 2.7 %; Mean Corpuscular HGB Conc 32.2 g/dL (31.6-35.5); Mean Corpuscular Hemoglobin 32.5 pg (28.0-33.3); Mean Platelet Volume 11.3 fL (9.4-12.4); Monocytes # 0.3 K/mcL (0.0-1.3); Neutrophils # 9.6 K/mcL (1.6-8.9); Segmented Neutrophils % 92.7 %
[2017-07-06 04:13] LABS: INR 4.1
[2017-07-06 04:18] LABS: BUN/Creatinine Ratio 18 (6-26); Calcium 7.8 mg/dL (8.6-10.8); Carbon Dioxide 23 mEq/L (19-29); Chloride 102 mEq/L (98-109); Glucose 79 mg/dL (70-99); Osmolality,Calculated 278 (280-300); Potassium 4.2 mEq/L (3.5-4.5); Sodium 134 mEq/L (136-145); eGFR For African Americans > 60 (> 60); eGFR For Non-African Americans > 60 (> 60)
[2017-07-06 04:20] LABS: Activated Partial Thrombo Time 101.2 Seconds (26.0-36.0)
[2017-07-06 04:21] LABS: Alanine Aminotransferase 59 Units/L (0-55); Albumin 2.7 g/dL (3.5-5.0); Alkaline Phosphatase 124 Units/L (38-126); Aspartate Amino Transferase 174 Units/L (5-34); BUN/Creatinine Ratio 19 (6-26); Bilirubin,Total 6.5 mg/dL (0.2-1.2); Blood Urea Nitrogen 18 mg/dL (7-20); Calcium 7.7 mg/dL (8.6-10.8); Carbon Dioxide 23 mEq/L (19-29); Chloride 102 mEq/L (98-109); Globulin 2.8 g/dL (2.4-3.5); Glucose 79 mg/dL (70-99); Osmolality,Calculated 279 (280-300); Phosphorous 2.7 mg/dL (2.3-4.7); Potassium 4.2 mEq/L (3.5-4.5); Sodium 134 mEq/L (136-145); Total Protein 5.5 g/dL (6.0-8.3); eGFR For African Americans > 60 (> 60); eGFR For Non-African Americans > 60 (> 60)
[2017-07-06 04:22] LABS: Prothrombin Time 46.1 Seconds (9.4-12.1)
[2017-07-06 04:24] LABS: Bilirubin,Direct 3.5 mg/dL (0.0-0.5); Blood Urea Nitrogen 17 mg/dL (7-20)
[2017-07-06 04:30] LABS: Platelet Count 55 K/mcL (140-400)
[2017-07-06 05:18] LABS: ABG Base Excess -4.2 mEq/L (-2.0 to 3.0); ABG HCO3 24.4 mEQ/L (21-27); ABG Oxygen Saturation 99 % (95-98); ABG PCO2 64 mmHg (35-45); ABG PO2 154 mmHg (85-104); ABG TCO2 26.4 mEq/L (20-26)
[2017-07-06 05:18] LABS: Hypochromasia Present (Not Present); Large Platelets Present (Not Present); Platelet Estimate Decreased (Normal); Polychromasia 1+ (Not Present)
[2017-07-06 05:19] LABS: Acanthocytes 1+ (Not Present)
[2017-07-06 05:19] LABS: Blood Gas FiO2 80 %
[2017-07-06 05:20] LABS: ABG PH 7.19 pH Units (7.32-7.45)
[2017-07-06] MEDS: FentaNYL (PF) 1,000 MCG in 0.9 % Sodium Chloride 80 ML IVC SCH ×2 (07:16→16:26)
[2017-07-06] MEDS: Budesonide/Formoterol 160/4.5 MDI IH SCH ×2 (07:29→22:16)
--- NOTE | 2017-07-06 07:43 | Pulmonology Progress Note ---
<Shane Almendarez - Last Filed: 07/06/17 10:09> Date of Encounter: 07/06/17 Time of Encounter: 07:41 Assessment and Plan (1) Gram negative septic shock Current Visit: Yes Status: Acute Septic shock secondary to her back or bacteremia. Currently on Zosyn, Cipro, meropenem. Intubated and on ventilator. Currently requiring norepinephrine drip to maintain blood pressure control. vernight, patient had increasing oxygen requirements while on the ventilator. FiO2 was increased to 100%, PEEP is now an 8. Norepinephrine drip has also been increased to 22 g per hour. Patient is given 2 pushes of bicarbonate overnight by hospitalist after repeat blood gas showed an acidosis of 7.19. Otherwise, patient remains unresponsive to painful stimuli or verbal stimuli. Not following any commands today. Continue antibiotics. Continue trying to wean down ventilator settings. Continue norepinephrine drip for blood pressure, will also add vasopressin Continue follow lactic acid levels. Delicate fluid balance at this time due to fluid overload, Ellen, worsening lactic acid. Will start thiamine, vitamin C, and stress dose steroids for worsening sepsis and hypotension (2) Urinary tract infection Current Visit: Yes Status: Acute Urine culture showing yeast growth. Fluconazole currently ordered. Qualifiers: Urinary tract infection type: site unspecified Hematuria presence: without hematuria Qualified Code(s): N39.0 - Urinary tract infection, site not specified (3) TERRELL (acute kidney injury) Current Visit: Yes Status: Acute Patient was started on Ellen yesterday. Renal function markedly improved. Creatinine now 0.93. Potassium, chloride, carbon dioxide all within normal limits. Sodium has improved as well, up to 134. Continue to monitor. Nephrology following. (4) Cirrhosis Current Visit: No Status: Chronic History of cirrhosis/[place]. Bilirubin and along with AST and ALTs, INR are continuing to rise. At this time, lactulose and rifaximin are being continued. A CT scan during stay shows moderate amount of ascites. However, paracentesis is being held at this time due to low platelets. We will continue to monitor these levels. Qualifiers: Hepatic cirrhosis type: unspecified hepatic cirrhosis Ascites presence: with ascites Qualified Code(s): K74.60 - Unspecified cirrhosis of liver (5) Coagulopathy Current Visit: Yes Status: Chronic Likely secondary to cirrhosis, INR has increased to 4.1. PT has increased to 46.1. PTT now 101.2. Patient is having blood coming from the catheter today. This is new for the patient. We will continue to monitor. We will give vitamin K. Consider FFP if worsening. (6) Thrombocytopenia Current Visit: No Status: Chronic Platelets currently at 55. This is status post transfusion of 2 platelets yesterday, which were transfused for dialysis catheter placement. (7) Anemia Current Visit: No Status: Acute Hemoglobin currently 10.1. We will continue to monitor. Qualifiers: Anemia type: unspecified type Qualified Code(s): D64.9 - Anemia, unspecified (8) Hyponatremia Current Visit: Yes Status: Acute Improved after Ellen starting. Sodium is now 134. We will continue to monitor. (9) Lactic acidosis Current Visit: Yes Status: Acute Worsening lactic acidosis. Now 7.2 from 5.7. We will continue to monitor. Patient currently fluid overloaded and having fluid removed by Ellen. Delicate fluid balance at this point. Patient also given 2 doses of bicarbonate push overnight due to acidosis. (10) Decubital ulcer Current Visit: Yes Status: Acute Wound care consulted. Patient being turned frequently, she is also on XPERT air bed that will reduce pressures. Qualifiers: Pressure ulcer location: contiguous region involving back and buttock Pressure ulcer stage: unspecified pressure ulcer stage Laterality: unspecified laterality Qualified Code(s): L89.40 - Pressure ulcer of contiguous site of back, buttock and hip, unspecified stage (11) Vulva cancer Current Visit: No Status: Chronic INCIDENT COMMANDER consulted. Examination was deferred due to patient discomfort. INCIDENT COMMANDER feels that the patient for her cancer is noncontributory to the patient's current status. (12) DVT prophylaxis Current Visit: Yes Status: Chronic SCDs currently in place. Holding heparin due to thrombocytopenia. INR also increased at 4.1. (13) Diabetes mellitus Current Visit: Yes Status: Chronic Glucose in the 70s. We will continue to monitor. May need to be started on D5. Qualifiers: Diabetes mellitus type: type 2 Diabetes mellitus complication status: with hyperglycemia Diabetes mellitus snf insulin use: without snf use Qualified Code(s): E11.65 - Type 2 diabetes mellitus with hyperglycemia Subjective Principal diagnosis: Septic shock Interval history: Patient was started on Ellen yesterday. Renal function markedly improved. Creatinine now 0.93. Potassium, chloride, carbon dioxide all within normal limits. Sodium has improved as well, up to 134. However, patient's lactic acid has continued to rise. Now 7.2 from 5.7. Bilirubin and along with AST and ALTs, INR are continuing to rise as well. Overnight, patient had increasing oxygen requirements while on the ventilator. FiO2 was increased to 100%, PEEP is now an 8. Norepinephrine drip has also been increased to 22 g per hour. Patient is given 2 pushes of bicarbonate overnight by hospitalist after repeat blood gas showed an acidosis of 7.19. Otherwise, patient remains unresponsive to painful stimuli or verbal stimuli. Not following any commands today. Unable to obtain any other review of system questions. Objective PUL Vital signs: Last Vital Signs Temp 96.5 F L 07/06/17 04:00 Pulse 70 07/06/17 07:00 Resp 20 07/06/17 07:30 BP 89/37 07/06/17 07:00 Pulse Ox 98 07/06/17 07:30 General appearance: other (Patient has been intubated and sedated) Eyes: icteric, upward gaze ENT: oropharynx dry, other (Patient is currently intubated) Neck: JVD, other Effort: other (Currently intubated and on a ventilator) Auscultation: bilateral: rales Cardiovascular: regular rate and rhythm Gastrointestinal: hypoactive bowel sounds, other (Distended) : Lucas blood from catheter (around 50ml) Integumentary: decubitus ulcer (On the lower back and buttock), other (Diffuse ecchymosis on bilateral upper extremities and on abdomen) Extremities: no cyanosis, no clubbing, pink and warm, edema (Diffuse 3+ pitting edema in the lower extremities bilaterally) Musculoskeletal: no deformities unable to assess due to mental status other (No response to verbal or pain) Ventilator Settings Ventilator Settings: Ventilator Settings, Last 8 Hours Ventilator Mode VC+ Ventilator Mode VC+ Ventilator Mode VC+ Ventilator Mode VC+ Ventilator Mode VC+ Ventilator Mode VC+ Ventilator Mode VC+ Ventilator Mode VC+ Ventilator Mode VC+ Ventilator Mode VC+ Ventilator Mode VC+ Ventilator Mode VC+ Ventilator Mode VC+ Ventilator Mode VC+ Ventilator Tidal Volume 550 Setting Ventilator Tidal Volume 550 Setting Ventilator Tidal Volume 550 Setting Ventilator Tidal Volume 550 Setting Ventilator Tidal Volume 550 Setting Ventilator Tidal Volume 550 Setting Ventilator Tidal Volume 550 Setting Ventilator Tidal Volume 550 Setting Ventilator Tidal Volume 550 Setting Ventilator Tidal Volume 550 Setting Ventilator Tidal Volume 550 Setting Ventilator Tidal Volume 550 Setting Ventilator Tidal Volume 550 Setting Ventilator Tidal Volume 550 Setting Ventilator Respiratory Rate 18 Setting Ventilator Respiratory Rate 18 Setting Ventilator Respiratory Rate 18 Setting Ventilator Respiratory Rate 18 Setting Ventilator Respiratory Rate 18 Setting Ventilator Respiratory Rate 18 Setting Ventilator Respiratory Rate 18 Setting Ventilator Respiratory Rate 18 Setting Ventilator Respiratory Rate 18 Setting Ventilator Respiratory Rate 18 Setting Ventilator Respiratory Rate 18 Setting Ventilator Respiratory Rate 18 Setting Ventilator Respiratory Rate 18 Setting Ventilator Respiratory Rate 12 Setting Actual Respiratory Rate 20 Actual Respiratory Rate 21 Actual Respiratory Rate 21 Actual Respiratory Rate 20 Actual Respiratory Rate 20 Actual Respiratory Rate 20 Actual Respiratory Rate 18 Actual Respiratory Rate 18 Actual Respiratory Rate 22 Actual Respiratory Rate 20 Actual Respiratory Rate 20 Actual Respiratory Rate 20 Positive End Expiratory 8 Pressure Positive End Expiratory 8 Pressure Positive End Expiratory 8 Pressure Positive End Expiratory 8 Pressure Positive End Expiratory 8 Pressure Positive End Expiratory 8 Pressure Positive End Expiratory 8 Pressure Positive End Expiratory 8 Pressure Positive End Expiratory 8 Pressure Positive End Expiratory 8 Pressure Positive End Expiratory 8 Pressure Positive End Expiratory 8 Pressure Positive End Expiratory 8 Pressure Positive End Expiratory 8 Pressure Peak Inspiratory Airway 32 Pressure Peak Inspiratory Airway 35 Pressure Peak Inspiratory Airway 31 Pressure Peak Inspiratory Airway 31 Pressure Peak Inspiratory Airway 31 Pressure Peak Inspiratory Airway 29 Pressure Peak Inspiratory Airway 28 Pressure Peak Inspiratory Airway 36 Pressure Peak Inspiratory Airway 34 Pressure Peak Inspiratory Airway 33 Pressure Peak Inspiratory Airway 32 Pressure Peak Inspiratory Airway 32 Pressure Results - Laboratory Findings CBC and BMP: 07/06/17 03:58 07/06/17 03:58 ABG ABG pH 7.19 pH Units (7.32-7.45) L* 07/06/17 05:10 ABG pCO2 64 mmHg (35-45) H 07/06/17 05:10 ABG pO2 154 mmHg (85-104) H 07/06/17 05:10 ABG O2 Saturation 99 % (95-98) H 07/06/17 05:10 PT/INR, D-dimer PT 46.1 Seconds (9.4-12.1) H* 07/06/17 03:58 Abnormal lab findings: Abnormal lab results RBC 3.11 M/mcL (3.82-4.97) L 07/06/17 03:58 Hgb 10.1 g/dL (11.5-15.4) L 07/06/17 03:58 Hct 31.4 % (35.3-44.9) L 07/06/17 03:58 MCV 101.0 fL (83.0-100.0) H 07/06/17 03:58 RDW 17.0 % (11.5-14.5) H 07/06/17 03:58 Plt Count 55 K/mcL (140-400) L 07/06/17 03:58 Neutrophils # 9.6 K/mcL (1.6-8.9) H 07/06/17 03:58 Lymphocytes # 0.3 K/mcL (0.6-4.6) L 07/06/17 03:58 Toxic Granulation Present (Not Present) A 07/03/17 09:07 Platelet Estimate Decreased (Normal) L 07/06/17 03:58 Large Platelets Present (Not Present) A 07/06/17 03:58 Immature Plt Fraction 6.8 % (1.1-6.1) H 07/06/17 03:58 Polychromasia 1+ (Not Present) A 07/06/17 03:58 Hypochromasia Present (Not Present) A 07/06/17 03:58 Poikilocytosis 1+ (Not Present) A 07/04/17 06:00 Anisocytosis 1+ (Not Present) A 07/04/17 06:00 Aurora Cells 1+ (Not Present) A 07/05/17 03:26 Acanthocytes (Spur) 1+ (Not Present) A 07/06/17 03:58 PT 46.1 Seconds (9.4-12.1) H* 07/06/17 03:58 APTT 101.2 Seconds (26.0-36.0) H D 07/06/17 03:58 ABG pH 7.19 pH Units (7.32-7.45) L* 07/06/17 05:10 ABG pCO2 64 mmHg (35-45) H 07/06/17 05:10 ABG pO2 154 mmHg (85-104) H 07/06/17 05:10 ABG Total CO2 26.4 mEq/L (20-26) H 07/06/17 05:10 ABG O2 Saturation 99 % (95-98) H 07/06/17 05:10 ABG Base Excess -4.2 mEq/L (-2.0 to 3.0) L 07/06/17 05:10 Sodium 134 mEq/L (136-145) L 07/06/17 03:58 POC Glucose 136 (58-89) H 07/06/17 05:55 Calculated Osmolality 279 (280-300) L 07/06/17 03:58 Lactic Acid 7.2 mmol/L (0.5-2.2) H* 07/06/17 03:58 Calcium 7.7 mg/dL (8.6-10.8) L 07/06/17 03:58 Total Bilirubin 6.5 mg/dL (0.2-1.2) H 07/06/17 03:58 Direct Bilirubin 3.5 mg/dL (0.0-0.5) H 07/06/17 03:58 Indirect Bilirubin 3.0 mg/dL (0.0-1.2) H 07/06/17 03:58 AST 174 Units/L (5-34) H 07/06/17 03:58 ALT 59 Units/L (0-55) H 07/06/17 03:58 B-Natriuretic Peptide 367 pg/mL (0-100) H 07/05/17 03:26 Serum Total Protein 5.5 g/dL (6.0-8.3) L 07/06/17 03:58 Albumin 2.7 g/dL (3.5-5.0) L 07/06/17 03:58 Albumin/Globulin Ratio 1.0 (1.1-2.2) L 07/06/17 03:58 Ur Specimen Adequacy See below A 07/02/17 16:45 Urine Color [place] (Yellow) A 07/04/17 19:45 Urine Clarity Turbid (Clear) A 07/04/17 19:45 Ur Specific [place] > 1.030 (1.010-1.025) H 07/04/17 19:45 Urine Protein 100 mg/dL (Neg-Trace) H 07/04/17 19:45 Urine Ketones Trace mg/dL (Negative) H 07/04/17 19:45 Urine Blood Large (Negative) H 07/04/17 19:45 Urine Bilirubin Small (Negative) H 07/04/17 19:45 Ur Leukocyte Esterase Large (Negative) H 07/04/17 19:45 Urine Microscopic RBC 50-100 per hpf (0-3) H 07/04/17 19:45 Urine Microscopic WBC 50-100 per hpf (0-3) H 07/04/17 19:45 Ur Squamous Epith Cells Many per lpf (None-Few) H 07/04/17 19:45 Ur Transition Epith Cell Moderate per hpf (None-Few) H 07/04/17 19:45 Urine Yeast Moderate per hpf (None Seen) H 07/04/17 19:45 Ur Culture Indicated? YES (NO) A 07/04/17 19:45 Enterobacteriac sp PCR DETECTED (Not Detect) A 07/02/17 17:16 E. cloacae complex PCR DETECTED (Not Detect) A 07/02/17 17:16 - Microbiology Findings Microbiology Findings: Microbiology, Last 48 Hours 07/04/17 19:45 Urine Culture - Preliminary Urine,Clean Catch Yeast Species - Clinical Findings Intake & Output: Intake & Output 07/05/17 07/05/17 07/06/17 15:59 23:59 07:59 Intake Total 2742.3 / 2742.3 630.5 / 630.5 360 / 360 Output Total 840 / 840 4206 / 4206 2110 / 2110 Balance 1902.3 / 1902.3 -3575.5 / -3575.5 -1750 / -1750 Weight 42.4 kg 122.8 kg 123 kg - VTE Documentation of Mechanical Device: Graduated compression elastic hosiery Consult Discharge Plan - Plan Referrals: NONE,PCP [Primary Care Provider] - <Digna Forte - Last Filed: 07/06/17 11:04> Date of Encounter: 07/06/17 Objective PUL Vital signs: Last Vital Signs Temp 95.4 F L 07/06/17 08:00 Pulse 66 07/06/17 10:00 Resp 20 07/06/17 10:00 BP 92/42 07/06/17 10:00 Pulse Ox 91 07/06/17 10:00 Ventilator Settings Ventilator Settings: Ventilator Settings, Last 8 Hours Ventilator Mode VC+ Ventilator Mode VC+ Ventilator Mode VC+ Ventilator Mode VC+ Ventilator Mode VC+ Ventilator Mode VC+ Ventilator Mode VC+ Ventilator Mode VC+ Ventilator Mode VC+ Ventilator Mode VC+ Ventilator Mode VC+ Ventilator Mode VC+ Ventilator Tidal Volume 550 Setting Ventilator Tidal Volume 550 Setting Ventilator Tidal Volume 550 Setting Ventilator Tidal Volume 550 Setting Ventilator Tidal Volume 550 Setting Ventilator Tidal Volume 550 Setting Ventilator Tidal Volume 550 Setting Ventilator Tidal Volume 550 Setting Ventilator Tidal Volume 550 Setting Ventilator Tidal Volume 550 Setting Ventilator Tidal Volume 550 Setting Ventilator Tidal Volume 550 Setting Ventilator Respiratory Rate 18 Setting Ventilator Respiratory Rate 18 Setting Ventilator Respiratory Rate 18 Setting Ventilator Respiratory Rate 18 Setting Ventilator Respiratory Rate 18 Setting Ventilator Respiratory Rate 18 Setting Ventilator Respiratory Rate 18 Setting Ventilator Respiratory Rate 18 Setting Ventilator Respiratory Rate 18 Setting Ventilator Respiratory Rate 18 Setting Ventilator Respiratory Rate 18 Setting Ventilator Respiratory Rate 18 Setting Actual Respiratory Rate 20 Actual Respiratory Rate 21 Actual Respiratory Rate 21 Actual Respiratory Rate 21 Actual Respiratory Rate 20 Actual Respiratory Rate 21 Actual Respiratory Rate 21 Actual Respiratory Rate 20 Actual Respiratory Rate 20 Actual Respiratory Rate 20 Actual Respiratory Rate 18 Positive End Expiratory 8 Pressure Positive End Expiratory 8 Pressure Positive End Expiratory 8 Pressure Positive End Expiratory 8 Pressure Positive End Expiratory 8 Pressure Positive End Expiratory 8 Pressure Positive End Expiratory 8 Pressure Positive End Expiratory 8 Pressure Positive End Expiratory 8 Pressure Positive End Expiratory 8 Pressure Positive End Expiratory 8 Pressure Positive End Expiratory 8 Pressure Peak Inspiratory Airway 31 Pressure Peak Inspiratory Airway 29 Pressure Peak Inspiratory Airway 29 Pressure Peak Inspiratory Airway 29 Pressure Peak Inspiratory Airway 32 Pressure Peak Inspiratory Airway 35 Pressure Peak Inspiratory Airway 31 Pressure Peak Inspiratory Airway 31 Pressure Peak Inspiratory Airway 31 Pressure Peak Inspiratory Airway 29 Pressure Peak Inspiratory Airway 28 Pressure Results - Laboratory Findings CBC and BMP: 07/06/17 03:58 07/06/17 03:58 ABG ABG pH 7.19 pH Units (7.32-7.45) L* 07/06/17 05:10 ABG pCO2 64 mmHg (35-45) H 07/06/17 05:10 ABG pO2 154 mmHg (85-104) H 07/06/17 05:10 ABG O2 Saturation 99 % (95-98) H 07/06/17 05:10 PT/INR, D-dimer PT 46.1 Seconds (9.4-12.1) H* 07/06/17 03:58 Abnormal lab findings: Abnormal lab results RBC 3.11 M/mcL (3.82-4.97) L 07/06/17 03:58 Hgb 10.1 g/dL (11.5-15.4) L 07/06/17 03:58 Hct 31.4 % (35.3-44.9) L 07/06/17 03:58 MCV 101.0 fL (83.0-100.0) H 07/06/17 03:58 RDW 17.0 % (11.5-14.5) H 07/06/17 03:58 Plt Count 55 K/mcL (140-400) L 07/06/17 03:58 Neutrophils # 9.6 K/mcL (1.6-8.9) H 07/06/17 03:58 Lymphocytes # 0.3 K/mcL (0.6-4.6) L 07/06/17 03:58 Toxic Granulation Present (Not Present) A 07/03/17 09:07 Platelet Estimate Decreased (Normal) L 07/06/17 03:58 Large Platelets Present (Not Present) A 07/06/17 03:58 Immature Plt Fraction 6.8 % (1.1-6.1) H 07/06/17 03:58 Polychromasia 1+ (Not Present) A 07/06/17 03:58 Hypochromasia Present (Not Present) A 07/06/17 03:58 Poikilocytosis 1+ (Not Present) A 07/04/17 06:00 Anisocytosis 1+ (Not Present) A 07/04/17 06:00 Aurora Cells 1+ (Not Present) A 07/05/17 03:26 Acanthocytes (Spur) 1+ (Not Present) A 07/06/17 03:58 PT 46.1 Seconds (9.4-12.1) H* 07/06/17 03:58 APTT 101.2 Seconds (26.0-36.0) H D 07/06/17 03:58 ABG pH 7.19 pH Units (7.32-7.45) L* 07/06/17 05:10 ABG pCO2 64 mmHg (35-45) H 07/06/17 05:10 ABG pO2 154 mmHg (85-104) H 07/06/17 05:10 ABG Total CO2 26.4 mEq/L (20-26) H 07/06/17 05:10 ABG O2 Saturation 99 % (95-98) H 07/06/17 05:10 ABG Base Excess -4.2 mEq/L (-2.0 to 3.0) L 07/06/17 05:10 Sodium 134 mEq/L (136-145) L 07/06/17 03:58 POC Glucose 136 (58-89) H 07/06/17 05:55 Calculated Osmolality 279 (280-300) L 07/06/17 03:58 Lactic Acid 8.1 mmol/L (0.5-2.2) H* 07/06/17 10:08 Calcium 7.7 mg/dL (8.6-10.8) L 07/06/17 03:58 Total Bilirubin 6.5 mg/dL (0.2-1.2) H 07/06/17 03:58 Direct Bilirubin 3.5 mg/dL (0.0-0.5) H 07/06/17 03:58 Indirect Bilirubin 3.0 mg/dL (0.0-1.2) H 07/06/17 03:58 AST 174 Units/L (5-34) H 07/06/17 03:58 ALT 59 Units/L (0-55) H 07/06/17 03:58 B-Natriuretic Peptide 367 pg/mL (0-100) H 07/05/17 03:26 Serum Total Protein 5.5 g/dL (6.0-8.3) L 07/06/17 03:58 Albumin 2.7 g/dL (3.5-5.0) L 07/06/17 03:58 Albumin/Globulin Ratio 1.0 (1.1-2.2) L 07/06/17 03:58 Ur Specimen Adequacy See below A 07/02/17 16:45 Urine Color [place] (Yellow) A 07/04/17 19:45 Urine Clarity Turbid (Clear) A 07/04/17 19:45 Ur Specific [place] > 1.030 (1.010-1.025) H 07/04/17 19:45 Urine Protein 100 mg/dL (Neg-Trace) H 07/04/17 19:45 Urine Ketones Trace mg/dL (Negative) H 07/04/17 19:45 Urine Blood Large (Negative) H 07/04/17 19:45 Urine Bilirubin Small (Negative) H 07/04/17 19:45 Ur Leukocyte Esterase Large (Negative) H 07/04/17 19:45 Urine Microscopic RBC 50-100 per hpf (0-3) H 07/04/17 19:45 Urine Microscopic WBC 50-100 per hpf (0-3) H 07/04/17 19:45 Ur Squamous Epith Cells Many per lpf (None-Few) H 07/04/17 19:45 Ur Transition Epith Cell Moderate per hpf (None-Few) H 07/04/17 19:45 Urine Yeast Moderate per hpf (None Seen) H 07/04/17 19:45 Ur Culture Indicated? YES (NO) A 07/04/17 19:45 Enterobacteriac sp PCR DETECTED (Not Detect) A 07/02/17 17:16 E. cloacae complex PCR DETECTED (Not Detect) A 07/02/17 17:16 - Microbiology Findings Microbiology Findings: Microbiology, Last 48 Hours 07/04/17 19:45 Urine Culture - Preliminary Urine,Clean Catch Yeast Species - Clinical Findings Intake & Output: Intake & Output 07/05/17 07/06/17 07/06/17 23:59 07:59 15:59 Intake Total 630.5 / 630.5 660 / 660 98 / 98 Output Total 4206 / 4206 2110 / 2110 894 / 894 Balance -3575.5 / -3575.5 -1450 / -1450 -796 / -796 Weight 122.8 kg 123 kg 123.1 kg - Attending Attestation I examined this patient and my medical decision-making was reviewed with the Resident Physician. I agree with the documented findings, disposition and treatment plan as described except to the extent set forth below. Patient seen and examined. Labs, radiology, chart personally reviewed. 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 Chest x-ray still has evidence of pulmonary edema and it is difficult to remove any fluid. PEEP has increased to 8 and improvement in oxygenation for that reason we will wean off FiO2 again. Cardiovascular: unstable and requirement of vasopressors has increase. GI: Nutrition per dietary and GI prophylaxis per routine. Patient with evidence of liver failure and she is becoming more jaundiced. Heme: DVT prophylaxis per routine. Coagulopathy and thrombocytopenia. Vitamin K was given and there is more evidence of bleeding then she will need more platelets and FFP. ID: Continue antibiotics and plan to de-escalation. Due to significant worsening of her condition and poor prognosis we will treat with vitamin C, hydrocortisone and thiamine. Renal; urine out put and renal funtion reviewed. Patient is on renal replacement therapy. Endorcine: blood glucose is monitored Lines: all lines checked and no evidence of infections Skin: skin care to prevent pressure ulcers per nursing routine care Extremely poor prognosis with multiorgan failures. I spent 40 min of Critical Care time with this patient. It involved decision making of high complexity to assess, manipulate, and support vital organ system failure and/or to prevent further life threatening deterioration of the patient' s condition. The time involved in the performance of separately reportable procedures was not counted toward critical care time.
[2017-07-06] MEDS: Lactulose Oral Soln 20 GM/30 ML UDC PO SCH (08:21)
[2017-07-06] MEDS: Chlorhexidine Rinse 15 ML MOUTHWASH MM SCH (08:22)
[2017-07-06] MEDS: Pantoprazole 40 MG VIAL IVPB SCH (08:22)
[2017-07-06] MEDS: Miconazole w/zinc oxide&karaya 92 APPL/92 GM TUBE TP SCH (08:23)
[2017-07-06] MEDS ORDERED: Vasopressin 40 UNIT in D5% in Water 100 ML IV SCH (10:00)
[2017-07-06] MEDS: Hydrocortisone Sodium Succ 100 MG/2 ML VIAL IVP SCH ×2 (10:40→17:48)
[2017-07-06] MEDS: Norepinephrine 16 MG in D5% in Water 250 ML IVC SCH (10:43)
[2017-07-06] MEDS ORDERED: Thiamine (B-1) 200 MG in D5% in Water 50 ML IVPB SCH (11:00)
[2017-07-06] MEDS ORDERED: Fluconazole 200 MG/100 ML 200 MG/100 ML BAG IVPB SCH (12:00)
--- NOTE | 2017-07-06 12:06 | Nephrology Progress Note ---
Date of Encounter: 07/06/17 Time of Encounter: 12:25 - Assessment and Plan (1) TERRELL (acute kidney injury) Status: Acute TERRELL with anuria and severe fluid overload. Hypotension with sepsis. Cont Primsa CVVHDF with 4K/2.5Ca without citrate d/t her severely elevated intrinsic coagulopathy (likely from multiorgan dysfunction). UF as tolerated but her hemodynamics appear to be worsening so as to be limiting UF. Follow a renal protective strategy Discussed with YARD DEMURRAGE CLERK and ICU residents. No family was present in the room. (2) Hyponatremia Status: Acute Improving with Ellen (3) Metabolic acidosis Status: Acute Improving with Ellen (4) Septic shock Status: Acute See above (5) Cirrhosis of liver with ascites Status: Chronic Likely contributing to her hypervolemic volume status Qualifiers: Hepatic cirrhosis type: unspecified hepatic cirrhosis Qualified Code(s): K74.60 - Unspecified cirrhosis of liver (6) Anemia Status: Acute Suspect multifactorial. Transfusion parameters as per primary. Qualifiers: Anemia type: unspecified type Qualified Code(s): D64.9 - Anemia, unspecified (7) Thrombocytopenia Status: Chronic Likely related to the cirrhosis and / or multiorgan dysfunction. Subjective Principal diagnosis: Septic shock Interval history: Pt was seen and examined. She was intubated/sedated and unable to provide any subjective history. Objective - Vital Signs Vital signs: Vital Signs Temp Pulse Resp BP Pulse Ox 07/06/17 11:22 20 90 07/06/17 11:00 95.9 F L 64 20 93/49 91 07/06/17 10:00 66 20 92/42 91 07/06/17 09:14 21 97 07/06/17 09:00 66 21 85/35 97 07/06/17 08:00 95.4 F L 68 21 84/42 97 07/06/17 07:46 68 07/06/17 07:30 20 98 07/06/17 07:00 70 21 89/37 100 07/06/17 06:00 71 21 91/52 100 07/06/17 05:17 20 91/58 100 07/06/17 05:00 75 20 91/58 100 07/06/17 04:13 71 07/06/17 04:00 96.5 F L 70 20 94/39 96 07/06/17 03:57 18 90/49 96 07/06/17 03:00 71 18 89/47 97 07/06/17 02:00 71 22 86/59 93 07/06/17 01:57 20 81/56 94 07/06/17 01:00 73 20 88/42 96 07/06/17 00:21 73 07/06/17 00:00 95.4 F L 78 20 96/59 100 07/05/17 23:00 77 20 86/40 99 07/05/17 22:00 79 15 82/45 94 07/05/17 21:10 17 83/42 96 07/05/17 21:03 17 83/42 96 07/05/17 21:00 79 17 83/42 99 07/05/17 20:15 80 07/05/17 20:12 20 91/53 93 07/05/17 20:00 96.2 F L 80 15 91/53 98 07/05/17 19:00 82 13 89/53 98 07/05/17 18:00 96.4 F L 85 13 96/56 97 07/05/17 17:00 86 15 99/55 98 07/05/17 16:53 13 96/54 97 07/05/17 16:00 96.2 F L 86 16 96/54 99 07/05/17 15:15 17 96/53 100 07/05/17 15:00 89 17 96/53 100 07/05/17 14:00 93 13 95/47 100 07/05/17 13:00 101 16 113/59 98 07/05/17 12:59 15 97/58 97 Intake and Output 07/05/17 07/06/17 07/06/17 23:59 07:59 15:59 Intake Total 630.5 / 630.5 660 / 660 98 / 98 Output Total 4206 / 4206 2110 / 2110 1058 / 1058 Balance -3575.5 / -3575.5 -1450 / -1450 -960 / -960 Intake: IV Fluids 630.5 / 630.5 660 / 660 98 / 98 PrismaSATE BGK 4/2.5 5, 0 / 0 0 / 0 000 ML @ 1500 mls/hr CRRT CONT [facility] Rx#:[id number] PRECEDEX 400 mcg In 100 158.2 / 158.2 10 / 10 ml @ 0.2 MCG/KG/HR 5.634 mls/hr IVC .[id number] [facility] Rx#:[id number] FentaNYL (PF) 1,000 MCG 66.2 / 66.2 100 / 100 In 0.9 % Sodium Chloride 80 ML @ 50 MCG/HR 5 mls/ hr IVC CONT [facility] Rx#: [id number] Versed 50 MG In 0.9 % 17.1 / 17.1 Sodium Chloride 90 ML @ 0 .03 MG/KG/MIN 442.26 mls/ hr IVC CONT [facility] Rx#: [id number] Levophed 16 MG In 289.0 / 289.0 150 / 150 98 / 98 Dextrose 5% 250 ML @ 5 MCG/MIN 4.98 mls/hr IVC CONT [facility] Rx#:[id number] Zyvox Premix 600mg/300mL 300 / 300 600 mg In 300 ml @ 150 mls/hr IVPB Q12HR [facility] Rx# :[id number] Merrem 1,000 MG In 0.9 % 100 / 100 100 / 100 Sodium Chloride (Mini-Bag +) 100 ML @ 200 mls/hr IVPB Q8H [facility] Rx#: [id number] 0.9 % Sodium Chloride 1, 0 / 0 000 ML @ Per Protocol PRIME .Q0M [facility] Rx#: [id number] Oral 0 / 0 0 / 0 Tube Feeding 0 / 0 0 / 0 Output: Urine 0 / 0 Ellen 2226 / 2226 1034 / 1034 527 / 527 Catheter / 4 / 4 Fluid Removed by 1969 1054 / 1054 527 / 527 Prismaflex Other: Weight 122.8 kg 123 kg 123.1 kg Blood Glucose* 103 136 76 Patient Weight 07/06/17 23:59 Weight 123.1 kg - General Appearance General appearance: Present: obese, severe distress, sedated on ventilator, intubated EENT: Present: mucous membranes moist Neck: Present: supple Respiratory: Present: rales Cardiology: Present: edema (severe anasarca b/l), normal S1, normal S2 Dialysis Vascular Access: Venous Catheter (C/D/I in the right IJ) Gastrointestinal: Present: normoactive bowel sounds, no tenderness, obese Integumentary: Present: warm and dry Neurologic: Present: no asterixis, obtunded Musculoskeletal: Present: no erythema, no clubbing - Lab 07/06/17 03:58 07/06/17 03:58 Most recent lab results ABG pH 7.19 pH Units (7.32-7.45) L* 07/06/17 05:10 ABG pCO2 64 mmHg (35-45) H 07/06/17 05:10 ABG pO2 154 mmHg (85-104) H 07/06/17 05:10 ABG HCO3 24.4 mEQ/L (21-27) 07/06/17 05:10 ABG O2 Saturation 99 % (95-98) H 07/06/17 05:10 Calcium 7.7 mg/dL (8.6-10.8) L 07/06/17 03:58 Phosphorus 2.7 mg/dL (2.3-4.7) 07/06/17 03:58 Magnesium 2.0 mg/dL (1.6-2.6) 07/06/17 03:58 Urine Creatinine 131 mg/dL 07/04/17 19:45 Urine Sodium 23.0 mEq/L 07/04/17 19:45 - VTE Documentation of Mechanical Device: Graduated compression elastic hosiery Consult Discharge Plan - Plan Referrals: NONE,PCP [Primary Care Provider] -
[2017-07-06] MEDS ORDERED: *HR* Heparin 5,000 UNIT/ML VIAL ONE ×2 (13:47→19:11)
[2017-07-06] MEDS: *HR* Heparin 5,000 UNIT/ML VIAL IV PRN ×2 (14:53→19:15)
[2017-07-06] MEDS: EPINEPHrine 1 MG in D5% in Water 250 ML IVC SCH ×3 (15:15→18:43)
[2017-07-06 17:12] VITALS: BP 96/44
[2017-07-06] MEDS: Dexmedetomidine HCl 400 MCG/100 ML MLS IVC SCH (17:44)
--- NOTE | 2017-07-06 18:18 | Event Note ---
Date of Encounter: 07/06/17 Time of Encounter: 18:13 Evaluated the patient, she is on 3 pressors epi, norepi, vassopressin. Has acute metabolic acidosis, Multiorgan failure due to septic shock with bacteremia Enterobacter cloacae, Urine stephanie infection. on Meropenem, Linezolid. IV Fluconazole, History of hepatic encephaloathy, cirrhosis. Acute renal failure, on TAISHA. Coagulopathy INR 4.1. Platelets 55 (were 27) . On sedation with precedex. Bicarbonate given. BP 96/44, Spoke with Dr Lucas, attending Physician, we both agree that the patinet has a very poor prognosis, and it would be futile to continue care. I spoke with both POAs (boyfriend and grandson) and they agree to switch her code status to DNRcc and to withdraw of care. Process explained, discontinue all medications, pressors and antibiotics, keep fentanyl. morphine PRN, maribel, ativan.
[2017-07-06] MEDS ORDERED: *HR* Morphine 2 MG/ML SYRINGE IVP PRN (19:11)
--- NOTE | 2017-07-06 20:02 | Death Note ---
Discharge Sum: Summary - Date and Time Date of admission: 07/02/17 20:03 Date of : 07/06/17 Time of : 19:40 - Summary Details: Evaluated the patient, she was on 3 pressors epi, norepi, vassopressin. Had acute metabolic acidosis. Multiorgan failure due to septic shock with bacteremia Enterobacter cloacae, Urine stephanie infection. Was on Meropenem, Linezolid. IV Fluconazole, History of hepatic encephaloathy, cirrhosis. Acute renal failure, on TAISHA. Coagulopathy INR 4.1. Platelets 55 (were 27) . On sedation with precedex. Bicarbonate given. BP 96/44, Spoke with Dr Lucas, attending Physician, we both agreed that the patinet had a very poor prognosis, and it would hve been futile to continue care. I spoke with both POAs (boyfriend and grandson) and they agreed to switch her code status to DNRcc and to withdraw of care. Process explained, discontinued all medications, pressors and antibiotics, keep fentanyl. morphine PRN, robinul, ativan. Patient at 19h40. Was surrounded by family. - Additional Data Confirmation of as documented by pronouncing clinician: no pulse, no respirations, no heart sounds, pupils fixed and dilated, other Family: at bedside Attending/PCP notified?: Yes Attending physician: Trent Hobbs MD Was code activated?: No Discharge Sum: Diag - PCOD Probable Cause of : Septic shock Discharge Sum: Prov - Provider Primary care physician: PCP NONE Admitting clinician: Digna Forte Consults: 07/02/17 20:11 Consult to Pulmonology [CONS] Routine Consulting Provider: [facility] Reason for Consult: Septic shock Call Completed: Yes 07/03/17 09:49 Consult to Wound Care [CONS] Routine Reason for Consult: decubitus ucler Call Completed: No 07/04/17 07:59 Consult to Palliative Care [CONS] Routine Comment: Consulting Provider: Keo De Leon Reason for Consult: discuss plan of care with family Call Completed: No 07/04/17 08:48 Consult to Invasive Line Access Team [CONS] Routine Reason for Consult: limited vascular access Line Type: Midline 07/04/17 17:01 Consult to Nephrology [CONS] Routine Consulting Provider: Salazar Willingham Reason for Consult: Fluid overload/Declining kidney function. Hepatorenal syndrome? Time Notified: 17:02 Call Completed: Yes 07/05/17 09:36 Consult to Interventional Radiology [CONS] Stat Consulting Provider: Radiology Interventional Cols Reason for Consult: Evaluation for placement of catheter for CVVHDF Time Notified: 09:41 Call Completed: Yes
[2017-07-08 01:04] LABS: Alpha 2 Globulin (PEP) 0.29 g/dL (0.48-1.05); Beta Globulin (PEP) 0.66 g/dL (0.48-1.10)
[2017-07-08 08:15] LABS: IFE Reflexed IFE Done
[2017-07-08 08:16] LABS: Immunoglobulin G 1470 mg/dL (768-1632); Immunoglobulin M 116 mg/dL (35-263)
[2017-07-08 08:17] LABS: Immunoglobulin A 562 mg/dL (68-408)
== END 2017-07-06 22:15 | disposition expired | DRG 720 ==
LOC: EMEROO 16:06 → ICNU 20:03
PROVIDERS: ADMIT Family Medicine; ATTEND Family Medicine
PROC: IRPERMA (2017-07-05 13:00)